=== PATIENT | male | born 1955 | race Caucasian/White ===

== ENCOUNTER → 2017-05-05 14:54 | Outpatient (CLI) | payer MEDICARE, SELFPAY ==
--- NOTE | 2017-05-05 14:57 | RAD_ITS ---
STUDY: X-RAY - PELVIS AND BILATERAL HIPS REASON FOR EXAM: Male, 62 years old. Pain TECHNIQUE: Radiological exam, hip, bilateral, with pelvis when performed; 2 views COMPARISON: None. FINDINGS: There is no fracture or dislocation in the pelvis or bilateral hips. There are mild degenerative changes noted in the hips. RAD/Hip 2-3 Views with Pelvis IMPRESSION: No fracture or dislocation. Mild degenerative change. Electronically Signed: Kofi Betancur, at 23:57 EST Tel , Service support ,
--- NOTE | 2017-05-05 15:10 | RAD_ITS ---
STUDY: X-RAY - LUMBAR SPINE REASON FOR EXAM: Male, 62 years old. Back pain TECHNIQUE: 4 view(s) of the lumbar spine were obtained. COMPARISON: None FINDINGS: There is no evidence of fracture or dislocation in the lumbar spine. The vertebral body heights are well-maintained. There are mild degenerative changes with disc space narrowing and facet hypertrophy. RAD/L/S Spine Min 4 Views IMPRESSION: No fracture or dislocation in the lumbar spine. Mild degenerative change. Electronically Signed: Kofi Betancur, at 23:53 EST Tel , Service support ,
== END ==
PROVIDERS: Family Provider Family Medicine; PCP Family Medicine; Visit Provider Family Medicine
DX: M54.16 Radiculopathy, lumbar region (principal)
CPT/HCPCS: 72110; 73502

== ENCOUNTER → 2017-08-15 09:58 | Outpatient (CLI) | payer MEDICARE, SELFPAY ==
[2017-08-15 10:55] LABS: Hemoglobin A1c 6.8 % (4.2-6.3)
[2017-08-15 11:02] LABS: ALB/GLOB Ratio 0.9 RATIO (0.9-2.4); AST(SGOT) 22 U/L (15-37); Alanine Aminotransfer ALT/SGPT 28 U/L (16-61); Albumin, Serum 3.8 g/dL (3.2-5.0); Alkaline Phosphatase 76 U/L (45-117); Anion Gap 9 (5-15); BUN 8 mg/dL (7-18); BUN/Creat Ratio 7.9 RATIO (10-20); Calcium,Total 8.9 mg/dL (8.5-10.1); Chloride 103 mmol/L (98-107); Cholesterol 124 mg/dL (200); Creatinine, Serum 1.01 mg/dL (0.70-1.30); EST Glomerular Filtration Rate 80 mL/min (>60); Est Glom Filt Rate - Afr Amer 96 mL/min (>60); Globulin 4.1 g/dL (2.2-4.2); Glucose 137 mg/dL (74-106); High Density Lipoprotein 38 mg/dL; Protein, Total 7.9 g/dL (6.4-8.2); Sodium Level 140 mmol/L (136-145); Triglycerides 148 mg/dL; Very Low Density Lipoprotein 30 mg/dL (5-40)
== END ==
PROVIDERS: Family Provider Family Medicine; PCP Family Medicine; Visit Provider Family Medicine
DX: E11.9 Type 2 diabetes mellitus without complications (principal); E78.2 Mixed hyperlipidemia
CPT/HCPCS: 36415; 80053; 80061; 83036

== ENCOUNTER → 2017-11-10 10:08 | Outpatient (CLI) | payer MEDICARE, SELFPAY ==
[2017-11-10 10:56] LABS: Hemoglobin A1c 6.7 % (4.2-6.3)
[2017-11-10 11:17] LABS: ALB/GLOB Ratio 1.1 RATIO (0.9-2.4); AST(SGOT) 20 U/L (15-37); Alanine Aminotransfer ALT/SGPT 29 U/L (16-61); Albumin, Serum 3.7 g/dL (3.2-5.0); Alkaline Phosphatase 64 U/L (45-117); Anion Gap 6 (5-15); BUN 11 mg/dL (7-18); BUN/Creat Ratio 10.4 RATIO (10-20); Calcium,Total 8.4 mg/dL (8.5-10.1); Chloride 104 mmol/L (98-107); Cholesterol 132 mg/dL (200); Creatinine, Serum 1.06 mg/dL (0.70-1.30); EST Glomerular Filtration Rate 75 mL/min (>60); Est Glom Filt Rate - Afr Amer 91 mL/min (>60); Globulin 3.5 g/dL (2.2-4.2); Glucose 131 mg/dL (74-106); High Density Lipoprotein 38 mg/dL; Potassium 3.9 mmol/L (3.5-5.1); Protein, Total 7.2 g/dL (6.4-8.2); Sodium Level 140 mmol/L (136-145); Triglycerides 207 mg/dL; Very Low Density Lipoprotein 41 mg/dL (5-40)
== END ==
PROVIDERS: Family Provider Family Medicine; PCP Family Medicine; Visit Provider Family Medicine
DX: E11.9 Type 2 diabetes mellitus without complications (principal); E78.2 Mixed hyperlipidemia
CPT/HCPCS: 36415; 80053; 80061; 83036

== ENCOUNTER 2018-01-13 17:19 | Observation (INO) | payer MEDICARE, SELFPAY ==
[2018-01-13] VITALS (7 sets, daily range): BP systolic 130–199; BP diastolic 70–101; PULSE 57–66; RESP 13–18; TEMP 36.6–37.3; O2SAT 96–98; BMI 36.1; BMI 35.6
--- NOTE | 2018-01-13 17:52 | RAD_ITS ---
STUDY: X-RAY CHEST REASON FOR EXAM: Male, 63 years old. Dizziness, bronchitis TECHNIQUE: Single AP portable view of the chest. COMPARISON: 06/10/2015 FINDINGS: There are interstitial fibrotic changes of the lungs. There is blunting of the right costophrenic angle suggesting pleural effusion. Follow-up recommended to assure resolution. Sternal cerclage wires and vascular clips are present from a prior sternotomy and coronary artery bypass graft procedure (CABG). Normal mediastinum and jean carlos. Normal visualized pulmonary arteries. Normal visualized aortic arch and descending thoracic aorta. Normal visualized thoracic spine. Normal visualized ribs, clavicles, and shoulders. There is no demonstrated abnormality of the visualized soft tissue structures of the upper abdomen. RAD/Chest 1 View (Portable) IMPRESSION: Chronic interstitial changes with right pleural effusion. Follow-up recommended to assure resolution Electronically Signed: Ben Mcrae MD at 18:11 EDT , Service support ,
--- NOTE | 2018-01-13 17:52 | EKG12_ITS ---
Test Reason : SYNCOPE Blood Pressure : / mmHG Vent. Rate : 063 BPM Atrial Rate : 063 BPM P-R Int : 174 ms QRS Dur : 090 ms QT Int : 466 ms P-R-T Axes : 030 -12 056 degrees QTc Int : 476 ms Sinus rhythm with occasional Premature ventricular complexes Nonspecific T wave abnormality Prolonged QT Abnormal ECG Confirmed by ELZA PORTILLO, RAGHU ([id number]), commissioning editor MICKIE GUPTA ([id number]) on 01/15/2018 3:07:09 PM Referred By: Confirmed By:RAGHU BERTRAND MD
[2018-01-13] MEDS: Aspirin 81 MG TAB.CHEW 324 MG PO (18:08)
[2018-01-13 18:21] LABS: Absolute Lymphocyte Count 1.66 X10^3/ul (0.83-4.51); Absolute Neutrophil Count 8.1 X10^3/uL (2.0-7.7); Basophil# 0.02 X10^3/uL; Basophil% 0.2 % (0-1); Eosinophil# 0.05 X10^3/uL; Eosinophils% 0.5 % (0-5); Hematocrit 46.2 % (40-54); Hemoglobin 15.9 g/dl (13.0-16.5); Lymphocyte # 1.66 X10^3/ul (4.0); Lymphocyte % 15.6 % (19-41); Mean Corp Hgb Conc 34.4 g/gl (32-36); Mean Corpuscular Hgb 29.4 pg (27.0-32.0); Mean Corpuscular Volume 85.4 fL (80-94); Mean Platelet Vol. 10.4 fl (6.2-12.0); Monocyte# 0.81 X10^3/uL; Monocyte% 7.6 % (0-10); Neutrophil # 8.08 X10^3/uL (2.7-7.7); Neutrophil % 75.9 % (47-70); POSITIVE COUNT NO; POSITIVE DIFFERENTIAL NO; POSITIVE MORPHOLOGY NO; Platelet Count 238 K/mm3 (150-450); RBC Distribution Width SD 40.3 fl (35.1-43.9); Red Blood Count 5.41 M/mm3 (4.6-6.2); White Blood Count 10.6 K/mm3 (4.4-11.0)
[2018-01-13 18:37] LABS: Anion Gap 8 (5-15); BUN 12 mg/dL (7-18); BUN/Creat Ratio 12.1 RATIO (10-20); Calcium,Total 8.8 mg/dL (8.5-10.1); Chloride 103 mmol/L (98-107); Creatinine, Serum 0.99 mg/dL (0.70-1.30); EST Glomerular Filtration Rate 81 mL/min (>60); Est Glom Filt Rate - Afr Amer 98 mL/min (>60); Estimated Creatinine Clearance 84.92 ml/min; Glucose 111 mg/dL (74-106); Potassium 4.3 mmol/L (3.5-5.1); Sodium Level 139 mmol/L (136-145)
--- NOTE | 2018-01-13 19:19 | ED.VISSUMM ---
- ER Visit Summary Date of Service: 01/13/18 Chief Complaint: Lightheaded History of Present Illness: The patient is a 63 M who presents with lightheadedness. He states it started yesterday evening. He has a known history of paroxysmal atrial fibrillation, dilated cardiomyopathy, CABG, aortic valve replacement and stents. He states he is felt lightheaded. He denies sensation of room spinning. He has no chest pain. He is on Coumadin. His INR yesterday was 3.3. He denies any full syncopal episodes. His heart rate at home he reports was 29. He states he has been eating and drinking well. No other recent illnesses Physical Examination: Vital signs reviewed. HEENT exam unremarkable. Heart is regular rate and rhythm without murmurs. Lungs are clear to auscultation. Abdomen is soft and nontender. Extremities reveal no edema. Peripheral pulses are equal. Skin exam normal. Neurologic exam normal. Test Results: EKG is normal sinus rhythm with [address] and T wave changes are noted. His chest x-ray reveals a small right pleural effusion with chronic changes. Laboratory studies are all normal. Emergency Department Course and Treatment: I reevaluated the patient he was still lightheaded. He feels unsteady on his feet. 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 I spoke with the hospitalist who will admit the patient. Treatment Plan: [] Disposition: Admit Impression: Near syncope, reported bradycardia This note was generated with [employer] dictation software. It may contain incorrect words, spelling, and punctuation that were not noted in review of the chart prior to signing ED Disposition - Plan for ED Patient: Chief Complaint: Syncope Referrals: Kofi Neumann MD [Primary Care Provider] -
--- NOTE | 2018-01-13 19:22 | ED.DCSUM_ITS ---
- ER Visit Summary Date of Service: 01/13/18 Chief Complaint: Lightheaded History of Present Illness: The patient is a 63 M who presents with lightheadedness. He states it started yesterday evening. He has a known history of paroxysmal atrial fibrillation, dilated cardiomyopathy, CABG, aortic valve replacement and stents. He states he is felt lightheaded. He denies sensation of room spinning. He has no chest pain. He is on Coumadin. His INR yesterday was 3.3. He denies any full syncopal episodes. His heart rate at home he reports was 29. He states he has been eating and drinking well. No other recent illnesses Physical Examination: Vital signs reviewed. HEENT exam unremarkable. Heart is regular rate and rhythm without murmurs. Lungs are clear to auscultation. Abdomen is soft and nontender. Extremities reveal no edema. Peripheral pulses are equal. Skin exam normal. Neurologic exam normal. Test Results: EKG is normal sinus rhythm with [address] and T wave changes are noted. His chest x-ray reveals a small right pleural effusion with chronic changes. Laboratory studies are all normal. Emergency Department Course and Treatment: I reevaluated the patient he was still lightheaded. He feels unsteady on his feet. Due to his cardiac history and the reported bradycardia, I would like to at least observe him overnight on the retail support manager. I spoke with the hospitalist who will admit the patient. Treatment Plan: [] Disposition: Admit Impression: Near syncope, reported bradycardia This note was generated with [employer] dictation software. It may contain incorrect words, spelling, and punctuation that were not noted in review of the chart prior to signing ED Disposition - Plan for ED Patient: Chief Complaint: Syncope Referrals: Kofi Neumann MD [Primary Care Provider] -
--- NOTE | 2018-01-13 19:56 | PCM.HP.STD ---
Problem List (1) Dizziness Status: Acute (2) Near syncope Status: Acute (3) Bradycardia Status: Acute History of Present Illness Date of Admission: 01/13/18 Chief Complaint: near syncope The patient is a 63 year old M who has a history of cardiac issues with atrial fibrillation and what sounds like a dilated cardiomyopathy. Patient off and on has issues in regards to her bradycardia but usually is not symptomatic but today patient was just dizzy. Worse when he stood her sat up. Was concerned and almost passed out at one point. Presented to the emergency room and was noted not to be bradycardic but with heart rate in the 60s. Patient said at home, use a pulse oximeter and measured his heart rate in the 20s-30s. Patient states this happens time to time but does not seek treatment for that. Has been told in the past that he may need a pacemaker but nothing definitive about that. 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 Kristian oviedo. [] Past Medical History Past Medical History (Chronic Problems): Chronic Problems History of back surgery (Chronic) Dilated cardiomyopathy (Chronic) CAD (coronary artery disease) (Chronic) Diabetes mellitus, type II (Chronic) Sleep apnea (Chronic) Sciatica (Chronic) intermittent since his back surgery BPH (benign prostatic hypertrophy) (Chronic) Paroxysmal atrial fibrillation (Chronic) history of anti-reflux surgery (Chronic) Obesity (BMI 30-39.9) (Chronic) HTN (hypertension) (Chronic) GERD (gastroesophageal reflux disease) (Chronic) Allergies cimetidine [From Tagamet] Allergy (Verified 01/13/18 17:21) irregular heart rate cimetidine HCl [From Tagamet] Allergy (Verified 01/13/18 17:21) irregular heart rate lansoprazole [From Prevacid] Allergy (Verified 01/13/18 17:21) irregular heart rate omeprazole [From Prilosec] Allergy (Verified 01/13/18 17:21) irregular heart rate omeprazole magnesium [From Prilosec] Allergy (Verified 01/13/18 17:21) irregular heart rate Home Medications: Ambulatory Orders Medication Instructions Recorded Glimepiride [Amaryl] 1 mg PO DAILY 02/04/14 Simvastatin [Zocor] 40 mg PO QHS 02/04/14 Magnesium 250 mg PO LUNCH 03/30/14 Aspirin [Aspirin, Baby] 81 mg PO DAILY@0800 #30 tab.chew 04/01/14 Benazepril HCl 40 mg PO DAILY #30 tablet 04/01/14 Diltiazem CD [Cardizem CD] 120 mg PO DAILY #30 capsule 04/01/14 Fish Oil/Dha/Epa [Fish Oil 1,200 1 each PO QHS 01/13/18 mg Fish Oil] Mag Hydrox/Al Hydrox/Simeth 30 ml PO QHS PRN 01/13/18 [Mylanta II] Metoprolol Tartrate [Lopressor 50 mg PO BID 01/13/18 (beta eleonora)] Nitroglycerin 0.4 mg SL DAILY PRN 01/13/18 Saw [place] 160 mg PO QHS 01/13/18 Warfarin [Coumadin] 5 mg PO QHS 01/13/18 Surgical History: angioplasty - with 3 stents in the past, tonsillectomy, - - anti-reflux surgery, low back surgery for disc disease Psychiatric History: No pertinent psych hx Smoking Status: Never smoker - *Family History Maternal History Items: - - mother at 51 of CAD....she had diabetes Paternal History Items: Heart Disease, - - father of a brain tumor and had heart disease Sibling History Items: Diabetes, - - he has a brother who had cancer of the arm(sarcoma)? has a sister with sarcoidosis Review of Systems Constitutional: Reports: Weakness. Denies: Anorexia, Chills, Fever, Night Sweats, Malaise Eyes: Denies: Blurred vision, Double vision HEENT: Denies: Head Aches, Sinus Congestion, Sinus Drainage Cardiovascular: Denies: Chest Pain, Palpitations Respiratory: Denies: Cough, Shortness of breath at rest, Sputum production Gastrointestinal: Denies: Abdominal Pain, Nausea, Vomiting Genitourinary: Denies: Dysuria Musculoskeletal: Denies: Joint Pain, Joint Tenderness Skin: Denies: Dryness, Jaundice Neurological: Denies: Numbness, Tingling, Focal weakness Psychiatric: Denies: Anxiety, Depression Endocrine: Denies: Change in Body Habitus Hematologic/ Lymphatic: Denies: Easy Bruising, Easy Bleeding, Hx of blood clot Comment: All review of systems are negative except as mentioned in the history of present illness and the other review of systems. VTE Information - Inpt Only VTE Present on Admission: No VTE Pharm Prophylaxis ordered?: Yes Patient Problems: Active and Suspected Problems Dizziness (Acute) Near syncope (Acute) Bradycardia (Acute) - Physical Exam General: Alert, Cooperative, No apparent distress HEENT: Atraumatic, PERRLA, EOMI, Normocephalic Oral: Moist Mucosa, No Gingival or Mucosal Lesions/ Ulcerations Neck: No Nodes, Thyroid Normal Size and Texture Lungs: Clear to auscultation, Normal air movement, No rhonchi, No wheeze Cardiovascular: Regular rate, Regular Rhythm, Normal S1, Normal S2, No murmurs Abdomen: Bowel Sounds Present, Soft, Non Tender, Non-Distended, No Hepato-splenomegaly Extremities: No edema, No Calf Tenderness Skin: No rashes, No breakdown Musculoskeletal: No Tenderness to Palpation of Joints or Extremities, No Muscle Wasting Neurological: Cranial nerves II-XII grossly intact, Deep Tendon Reflexes 2+/4 and Symmetrical, Motor Exam 5/5 strength throughout Psych/Mental Status: Normal Affect, Appropriate Vital Signs Temp Pulse Resp BP Pulse Ox 37.3 C 60 13 159/83 H 98 01/13/18 17:21 01/13/18 19:33 01/13/18 19:33 01/13/18 19:33 01/13/18 19:33 Oxygen Delivery Method Room Air Weight: 121 kg Body Mass Index (BMI) 36.1 Laboratory Tests Past 24 Hrs 01/13/18 01/13/18 18:10 18:10 WBC 10.6 RBC 5.41 Hgb 15.9 Hct 46.2 MCV 85.4 MCH 29.4 MCHC 34.4 RDW 13.0 RDW Differential 40.3 Plt Count 238 MPV 10.4 Immature Gran % (Auto) 0.200 Neut % (Auto) 75.9 H Lymph % (Auto) 15.6 L [place] % (Auto) 7.6 Eos % (Auto) 0.5 Baso % (Auto) 0.2 Absolute Neuts (auto) 8.1 H Absolute Lymphs (auto) 1.66 Total Counted Not Reportable Sodium 139 Potassium 4.3 Chloride 103 Carbon Dioxide 28.0 Anion Gap 8 BUN 12 Creatinine 0.99 Estim Creat Clear Calc 84.92 Est GFR (MDRD) Af Amer 98 Est GFR (MDRD) Non-Af 81 BUN/Creatinine Ratio 12.1 Glucose 111 H Calcium 8.8 Troponin I < 0.015 Clinical Impression(s) from Imaging Studies Chest X-Ray 01/13/18 17:52 IMPRESSION: Chronic interstitial changes with right pleural effusion. Follow-up recommended to assure resolution Electronically Signed: Ben Mcrae MD at 18:11 EDT , Service support , Assessment/Plan All Active Problems Dizziness (Acute) Near syncope (Acute) Bradycardia (Acute) Atrial fibrillation with rapid ventricular response (Acute) Hx-TIA (transient ischemic attack) (Resolved) 1. Dizziness/near syncope Unclear etiology at this time Workup for inner ear vertigo has been unremarkable thus far Possibilities could be orthostatic hypotension still could be BPPV Patient not bradycardic now but still having dizziness so I do not feel the bradycardia is treatable cause at this time Check orthostatic vital signs Check echocardiogram Patient has said that he has a dilated ventricle and atrium on his most recent echocardiogram from March of last year. I do not have those results available at this time Will request records from Dr. oviedo's office 2. Bradycardia Patient states that he is on sotalol metoprolol and diltiazem States that he is on sotalol on his home list but given the bradycardia and his symptoms I am going to hold his metoprolol for now. Monitor for now 3. Paroxysmal atrial fibrillation As above, hold metoprolol continue with diltiazem. We will need to verify if he is indeed on sotalol Continue with Coumadin Check INR Code Visit OBSV E&M: 85884 Initial observation care L3
--- NOTE | 2018-01-13 19:59 | ECHOCS_ITS ---
Reason For Study: Near syncope Procedure This was a 2D Doppler, Color Flow transthoracic echocardiogram. Exam performed portable in patient room. Left Ventricle Normal LV size. Left ventricular systolic function is normal. The estimated ejection fraction is 65 %. Stage 1 diastolic dysfunction. No regional wall motion abnormalities noted. Right Ventricle Normal RV size. Normal systolic function. Atria Normal left atrium. Normal right atrium. Mitral Valve Normal mitral valve. Tricuspid Valve Normal tricuspid valve. Mild tricuspid valve insufficiency. Pulmonary artery systolic pressure is 32 mmHg. Aortic Valve The aortic valve is not well visualized. Peak aortic valve gradient 35 mmHg. Mean aortic valve gradient 20 mmHg. Mild aortic stenosis. Calculated aortic valve area (continuity equation) is 1.6 cm2. Pulmonic Valve Normal pulmonic valve. Great Vessels Normal aortic root. The pulmonary artery is normal size. Normal inferior vena cava. Pericardium/Pleural No pericardial effusion. Medication [id number] given slow IV push to enhance endocardial definition. MMode/2D Measurements & Calculations LVIDd: 5.4 cm IVSd: 1.1 cm LVOT diam: 2.4 cm LVIDs: 3.5 cm LVPWd: 1.1 cm LVOT area: 4.6 cm2 RVDd: 4.9 cm FS: 34.5 % Ao root diam: 3.5 cm LAV(MOD-bp): 46.6 ml EDV(MOD-sp4): 165.4 ml LA dimension: 4.3 cm LAV(MOD-bp) Indexed: 19.5 ml/m2 ESV(MOD-sp4): 41.2 ml LAV(MOD-sp2): 40.1 ml EF(MOD-sp4): 75.1 % LAV(MOD-sp4): 52.4 ml EDV(MOD-sp2): 125.9 ml SV(MOD-sp4): 124.2 ml SV(MOD-sp2): 82.8 ml EF(MOD-sp2): 65.7 % LA A4 area: 20.3 cm2 RA A4 area: 13.8 cm2 Time Measurements MV dec time: 0.31 sec Doppler Measurements & Calculations MV E max faisal: 65.7 cm/sec Lat Peak E' Faisal: 11.4 cm/sec Med Peak E' Faisal: 6.8 cm/sec MV A max faisal: 73.7 cm/sec E/E' lat: 5.8 E/E' med: 9.6 MV E/A: 0.89 Ao V2 max: 297.7 cm/sec LV V1 max: 102.5 cm/sec SV(LVOT): 100.1 ml Ao max P.6 mmHg LV V1 max P.2 mmHg Ao V2 mean: 208.1 cm/sec LV V1 mean P.3 mmHg Ao mean P.7 mmHg LV V1 mean: 71.4 cm/sec Ao V2 VTI: 58.5 cm LV V1 VTI: 21.9 cm AZUCENA(I,D): 1.7 cm2 AZUCENA(V,D): 1.6 cm2 PA V2 max: 112.5 cm/sec PI end-d faisal: 88.8 cm/sec TR max faisal: 265.1 cm/sec TR max P.1 mmHg Interpretation Summary Normal LV size. Left ventricular systolic function is normal. The estimated ejection fraction is 65 %. Stage 1 diastolic dysfunction. Mean aortic valve gradient 20 mmHg. Mild aortic stenosis. Calculated aortic valve area (continuity equation) is 1.6 cm2. Contrast injection was performed. Ordering Physician: Cliff Enamorado Referring Physician: Kofi Neumann Performed By: Ciera Felder RDCS
--- NOTE | 2018-01-13 20:02 | HP.PCM_ITS ---
Problem List (1) Dizziness Status: Acute (2) Near syncope Status: Acute (3) Bradycardia Status: Acute History of Present Illness Date of Admission: 01/13/18 Chief Complaint: near syncope The patient is a 63 year old M who has a history of cardiac issues with atrial fibrillation and what sounds like a dilated cardiomyopathy. Patient off and on has issues in regards to her bradycardia but usually is not symptomatic but today patient was just dizzy. Worse when he stood her sat up. Was concerned and almost passed out at one point. Presented to the emergency room and was noted not to be bradycardic but with heart rate in the 60s. Patient said at home, use a pulse oximeter and measured his heart rate in the 20s-30s. Patient states this happens time to time but does not seek treatment for that. Has been told in the past that he may need a pacemaker but nothing definitive about that. 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 Kristian oviedo. [] Past Medical History Past Medical History (Chronic Problems): Chronic Problems History of back surgery (Chronic) Dilated cardiomyopathy (Chronic) CAD (coronary artery disease) (Chronic) Diabetes mellitus, type II (Chronic) Sleep apnea (Chronic) Sciatica (Chronic) intermittent since his back surgery BPH (benign prostatic hypertrophy) (Chronic) Paroxysmal atrial fibrillation (Chronic) history of anti-reflux surgery (Chronic) Obesity (BMI 30-39.9) (Chronic) HTN (hypertension) (Chronic) GERD (gastroesophageal reflux disease) (Chronic) Allergies cimetidine [From Tagamet] Allergy (Verified 01/13/18 17:21) irregular heart rate cimetidine HCl [From Tagamet] Allergy (Verified 01/13/18 17:21) irregular heart rate lansoprazole [From Prevacid] Allergy (Verified 01/13/18 17:21) irregular heart rate omeprazole [From Prilosec] Allergy (Verified 01/13/18 17:21) irregular heart rate omeprazole magnesium [From Prilosec] Allergy (Verified 01/13/18 17:21) irregular heart rate Home Medications: Ambulatory Orders Medication Instructions Recorded Glimepiride [Amaryl] 1 mg PO DAILY 02/04/14 Simvastatin [Zocor] 40 mg PO QHS 02/04/14 Magnesium 250 mg PO LUNCH 03/30/14 Aspirin [Aspirin, Baby] 81 mg PO DAILY@0800 #30 tab.chew 04/01/14 Benazepril HCl 40 mg PO DAILY #30 tablet 04/01/14 Diltiazem CD [Cardizem CD] 120 mg PO DAILY #30 capsule 04/01/14 Fish Oil/Dha/Epa [Fish Oil 1,200 1 each PO QHS 01/13/18 mg Fish Oil] Mag Hydrox/Al Hydrox/Simeth 30 ml PO QHS PRN 01/13/18 [Mylanta II] Metoprolol Tartrate [Lopressor 50 mg PO BID 01/13/18 (beta eleonora)] Nitroglycerin 0.4 mg SL DAILY PRN 01/13/18 [address] [place] 160 mg PO QHS 01/13/18 Warfarin [Coumadin] 5 mg PO QHS 01/13/18 Surgical History: angioplasty - with 3 stents in the past, tonsillectomy, - - anti-reflux surgery, low back surgery for disc disease Psychiatric History: No pertinent psych hx Smoking Status: Never smoker - *Family History Maternal History Items: - - mother at 51 of CAD....she had diabetes Paternal History Items: Heart Disease, - - father of a brain tumor and had heart disease Sibling History Items: Diabetes, - - he has a brother who had cancer of the arm(sarcoma)? has a sister with sarcoidosis Review of Systems Constitutional: Reports: Weakness. Denies: Anorexia, Chills, Fever, Night Sweats, Malaise Eyes: Denies: Blurred vision, Double vision HEENT: Denies: Head Aches, Sinus Congestion, Sinus Drainage Cardiovascular: Denies: Chest Pain, Palpitations Respiratory: Denies: Cough, Shortness of breath at rest, Sputum production Gastrointestinal: Denies: Abdominal Pain, Nausea, Vomiting Genitourinary: Denies: Dysuria Musculoskeletal: Denies: Joint Pain, Joint Tenderness Skin: Denies: Dryness, Jaundice Neurological: Denies: Numbness, Tingling, Focal weakness Psychiatric: Denies: Anxiety, Depression Endocrine: Denies: Change in Body Habitus Hematologic/ Lymphatic: Denies: Easy Bruising, Easy Bleeding, Hx of blood clot Comment: All review of systems are negative except as mentioned in the history of present illness and the other review of systems. VTE Information - Inpt Only VTE Present on Admission: No VTE Pharm Prophylaxis ordered?: Yes Patient Problems: Active and Suspected Problems Dizziness (Acute) Near syncope (Acute) Bradycardia (Acute) - Physical Exam General: Alert, Cooperative, No apparent distress HEENT: Atraumatic, PERRLA, EOMI, Normocephalic Oral: Moist Mucosa, No Gingival or Mucosal Lesions/ Ulcerations Neck: No Nodes, Thyroid Normal Size and Texture Lungs: Clear to auscultation, Normal air movement, No rhonchi, No wheeze Cardiovascular: Regular rate, Regular Rhythm, Normal S1, Normal S2, No murmurs Abdomen: Bowel Sounds Present, Soft, Non Tender, Non-Distended, No Hepato- splenomegaly Extremities: No edema, No Calf Tenderness Skin: No rashes, No breakdown Musculoskeletal: No Tenderness to Palpation of Joints or Extremities, No Muscle Wasting Neurological: Cranial nerves II-XII grossly intact, Deep Tendon Reflexes 2+/4 and Symmetrical, Motor Exam 5/5 strength throughout Psych/Mental Status: Normal Affect, Appropriate Vital Signs Temp Pulse Resp BP Pulse Ox 37.3 C 60 13 159/83 H 98 01/13/18 17:21 01/13/18 19:33 01/13/18 19:33 01/13/18 19:33 01/13/18 19:33 Oxygen Delivery Method Room Air Weight: 121 kg Body Mass Index (BMI) 36.1 Laboratory Tests Past 24 Hrs 01/13/18 01/13/18 18:10 18:10 WBC 10.6 RBC 5.41 Hgb 15.9 Hct 46.2 MCV 85.4 MCH 29.4 MCHC 34.4 RDW 13.0 RDW Differential 40.3 Plt Count 238 MPV 10.4 Immature Gran % (Auto) 0.200 Neut % (Auto) 75.9 H Lymph % (Auto) 15.6 L [place] % (Auto) 7.6 Eos % (Auto) 0.5 Baso % (Auto) 0.2 Absolute Neuts (auto) 8.1 H Absolute Lymphs (auto) 1.66 Total Counted Not Reportable Sodium 139 Potassium 4.3 Chloride 103 Carbon Dioxide 28.0 Anion Gap 8 BUN 12 Creatinine 0.99 Estim Creat Clear Calc 84.92 Est GFR (MDRD) Af Amer 98 Est GFR (MDRD) Non-Af 81 BUN/Creatinine Ratio 12.1 Glucose 111 H Calcium 8.8 Troponin I < 0.015 Clinical Impression(s) from Imaging Studies Chest X-Ray 01/13/18 17:52 IMPRESSION: Chronic interstitial changes with right pleural effusion. Follow-up recommended to assure resolution Electronically Signed: Ben Mcrae MD at 18:11 EDT , Service support , Assessment/Plan All Active Problems Dizziness (Acute) Near syncope (Acute) Bradycardia (Acute) Atrial fibrillation with rapid ventricular response (Acute) Hx-TIA (transient ischemic attack) (Resolved) 1. Dizziness/near syncope * Unclear etiology at this time * Workup for inner ear vertigo has been unremarkable thus far * Possibilities could be orthostatic hypotension still could be BPPV * Patient not bradycardic now but still having dizziness so I do not feel the bradycardia is treatable cause at this time * Check orthostatic vital signs * Check echocardiogram * Patient has said that he has a dilated ventricle and atrium on his most recent echocardiogram from March of last year. I do not have those results available at this time * Will request records from Dr. oviedo's office 2. Bradycardia * Patient states that he is on sotalol metoprolol and diltiazem * States that he is on sotalol on his home list but given the bradycardia and his symptoms I am going to hold his metoprolol for now. * Monitor for now 3. Paroxysmal atrial fibrillation * As above, hold metoprolol continue with diltiazem. We will need to verify if he is indeed on sotalol * Continue with Coumadin * Check INR Code Visit OBSV E&M: 77100 Initial observation care L3
[2018-01-13 20:49] LABS: International Normalized Ratio 2.1; Prothrombin Time (Protime)PT. 23.3 SECONDS (11.7-14.9)
[2018-01-13] MEDS: Atorvastatin Calcium 20 MG Tablet PO (22:51)
[2018-01-13 23:00] LABS: Bedside Glucose 113 mg/dL (70-110)
[2018-01-14] VITALS (11 sets, daily range): BP systolic 126–154; BP diastolic 72–89; PULSE 56–80; RESP 16–18; TEMP 36.6–36.8; O2SAT 95–97
[2018-01-14 06:23] LABS: International Normalized Ratio 1.8; Prothrombin Time (Protime)PT. 20.5 SECONDS (11.7-14.9)
[2018-01-14 06:26] LABS: BUN 12 mg/dL (7-18); BUN/Creat Ratio 12.1 RATIO (10-20); Calcium,Total 8.8 mg/dL (8.5-10.1); Creatinine, Serum 0.99 mg/dL (0.70-1.30); EST Glomerular Filtration Rate 81 mL/min (>60); Est Glom Filt Rate - Afr Amer 98 mL/min (>60); Estimated Creatinine Clearance 84.92 ml/min; Glucose 149 mg/dL (74-106); Magnesium 2.2 mg/dL (1.6-2.6); Sodium Level 140 mmol/L (136-145)
[2018-01-14 06:27] LABS: Anion Gap 10 (5-15); Chloride 104 mmol/L (98-107)
[2018-01-14] MEDS: Aspirin 81 MG TAB.CHEW PO (08:35)
[2018-01-14] MEDS: Glimepiride 1 MG Tablet PO (08:35)
[2018-01-14] MEDS: Lisinopril 40 MG Tablet PO (08:35)
[2018-01-14] MEDS: dilTIAZem CD 120 MG Capsule PO (08:35)
[2018-01-14] MEDS: Magnesium Oxide 400 MG Tablet 200 MG PO (12:04)
[2018-01-14] MEDS: Sotalol Hydrochloride 80 MG Tablet 120 MG PO ×2 (12:05→22:43)
--- NOTE | 2018-01-14 12:06 | PCM.PROGNOTE ---
<Shane Diggs - Last Filed: 01/14/18 12:06> Patient Problems: Active and Suspected Problems Dizziness (Acute) Near syncope (Acute) Bradycardia (Acute) Subjective: Pt very anxious about not receiving beta blockers. He states last time metoprolol was attempted to be stopped to switch to coreg he developed severe chest pain. He has had no CP so far. No SOB. No LH or dizziness today at rest or while up to the bathroom. No further palpitations - was having these at home. His pulse was in the 20s at home, has been ok overnight on tele with some PVCs. - Physical Exam General: Alert, Oriented x3, Cooperative HEENT: Atraumatic, PERRLA, EOMI, Normocephalic Neck: Supple, No JVD, Negative Carotid Bruits Lungs: Clear to auscultation, Normal air movement Cardiovascular: Regular rate, No murmurs Abdomen: Bowel Sounds Present, Soft, Non Tender Extremities: No edema, Capillary Refill Less than 3 Seconds Skin: No rashes, No breakdown Musculoskeletal: No Tenderness to Palpation of Joints or Extremities Neurological: Cranial nerves II-XII grossly intact Psych/Mental Status: Anxious, Alert and oriented to time, place, person, mood and affect Vital Signs Temp Pulse Resp BP Pulse Ox 97.9 F 60 16 154/83 H 97 01/14/18 10:55 01/14/18 10:58 01/14/18 10:55 01/14/18 10:55 01/14/18 10:55 Oxygen Delivery Method Room Air Weight: 262 lb 5.601 oz Body Mass Index (BMI) 35.6 Orthostatic Vital Signs Start: 01/14/18 05:19 Freq: q24h Status: Active Protocol: Activity Type Activity Date Activity User E-Sign Co-Sign Detail Recorded Client Recorded Date Recorded By Document 01/14/18 04:55 Miesha [id number] 01/14/18 05:22 KARL 01/14/18 04:55 Orthostatic Vitals Standing -Blood Pressure (90/60-120/80) 126/89 H -Extremity Use Left Arm -Pulse Rate (60-100) 70 Sitting -Blood Pressure (90/60-120/80) 153/87 H -Extremity Use Left Arm -Pulse Rate (60-100) 67 Lying -Blood Pressure (90/60-120/80) 140/84 H -Extremity Use Left Arm -Pulse Rate (60-100) 65 Intake and Output for Last 24 Hours 01/12/18 01/13/18 01/14/18 23:59 23:59 23:59 Intake Total 600 / 600 Output Total 525 / 525 Balance 75 / 75 Laboratory Tests Past 24 Hrs 01/13/18 01/13/18 01/13/18 18:10 18:10 20:15 WBC 10.6 RBC 5.41 Hgb 15.9 Hct 46.2 MCV 85.4 MCH 29.4 MCHC 34.4 RDW 13.0 RDW Differential 40.3 Plt Count 238 MPV 10.4 Immature Gran % (Auto) 0.200 Neut % (Auto) 75.9 H Lymph % (Auto) 15.6 L [place] % (Auto) 7.6 Eos % (Auto) 0.5 Baso % (Auto) 0.2 Absolute Neuts (auto) 8.1 H Absolute Lymphs (auto) 1.66 Total Counted Not Reportable PT 23.3 H INR 2.1 Sodium 139 Potassium 4.3 Chloride 103 Carbon Dioxide 28.0 Anion Gap 8 BUN 12 Creatinine 0.99 Estim Creat Clear Calc 84.92 Est GFR (MDRD) Af Amer 98 Est GFR (MDRD) Non-Af 81 BUN/Creatinine Ratio 12.1 Glucose 111 H Calcium 8.8 Magnesium Troponin I < 0.015 01/13/18 01/13/18 01/14/18 20:15 22:58 05:04 WBC RBC Hgb Hct MCV MCH MCHC RDW RDW Differential Plt Count MPV Immature Gran % (Auto) Neut % (Auto) Lymph % (Auto) [place] % (Auto) Eos % (Auto) Baso % (Auto) Absolute Neuts (auto) Absolute Lymphs (auto) Total Counted PT 20.5 H INR 1.8 Sodium Potassium Chloride Carbon Dioxide Anion Gap BUN Creatinine Estim Creat Clear Calc Est GFR (MDRD) Af Amer Est GFR (MDRD) Non-Af BUN/Creatinine Ratio Glucose Calcium Magnesium Troponin I < 0.015 < 0.015 01/14/18 05:04 WBC RBC Hgb Hct MCV MCH MCHC RDW RDW Differential Plt Count MPV Immature Gran % (Auto) Neut % (Auto) Lymph % (Auto) [place] % (Auto) Eos % (Auto) Baso % (Auto) Absolute Neuts (auto) Absolute Lymphs (auto) Total Counted PT INR Sodium 140 Potassium 4.0 Chloride 104 Carbon Dioxide 26.0 Anion Gap 10 BUN 12 Creatinine 0.99 Estim Creat Clear Calc 84.92 Est GFR (MDRD) Af Amer 98 Est GFR (MDRD) Non-Af 81 BUN/Creatinine Ratio 12.1 Glucose 149 H Calcium 8.8 Magnesium 2.2 Troponin I POC Glucose 01/13/18 22:49 POC Glucose 113 H Medical Necessity - Tobacco Use Smoking Status: Former smoker Assessment/Plan All Active Problems Dizziness (Acute) Near syncope (Acute) Bradycardia (Acute) Atrial fibrillation with rapid ventricular response (Acute) Hx-TIA (transient ischemic attack) (Resolved) 1. Near syncope 2/2 bradycardia - improved with sotalol and metoprolol held. Restart toprol. Echo in AM. Maintain on tele. No events so far. Trop neg x 3. Mag normal. Has outside flat knitter helper who has discussed pacer option with him in the past. -Positive orthostatic vitals. Recheck after starting sotalol. Resting BP is elevated so defer additional agents like midodrine. 2. Hx Paroxysmal Afib - rate controlled, SR. Warfarin subtherapeutic. 3. CAD - prior cabg, stents 4. Hx AV stenosis - s/p bioprosthetic valve 5. HTN - running high, likely 2/2 help meds, adjust if remains elevated after restarting sotalol 6. DMt2 with obesity - amaryl, add SSI. 7. MAI - compliant with CPAP DVT ppx: warfarin DC planning: PTOT This patient was seen by Shane Diggs PA-C under the supervision of Doctor Pedro. <Tye Vasquez - Last Filed: 01/14/18 14:55> Subjective: Patient was seen and examined. I saw the patient during previous admission in 2013 for A. fib with RVR. At that time he had echo, CINTHYA and cardiac cath. He had short run of NSVT at that time. He used to follow Dr. Rascon and currently follows Dr Kristian Cordova in [place]. Patient on heavy dose of rate control medications including sotalol 120 mg a.m. and 160 mg at bedtime, metoprolol 50 mg twice daily and Cardizem CD 120 mg daily. Patient said he came yesterday when he is feeling dizzy, lightheaded and her heart rate was in 20s-30s and was almost passed out but denies fall or syncope. 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 - Physical Exam General: Alert, Oriented x3, Cooperative HEENT: Atraumatic, PERRLA, EOMI, Normocephalic Neck: Supple, No JVD, Negative Carotid Bruits Lungs: Clear to auscultation, Normal air movement Cardiovascular: Normal S1, Normal S2, Bradycardic, Murmur - Systolic murmur over left lower sternal border and aortic region, - - Status post AVR Abdomen: Bowel Sounds Present, Soft, Non Tender Extremities: No edema, Capillary Refill Less than 3 Seconds Skin: No rashes, No breakdown Musculoskeletal: No Tenderness to Palpation of Joints or Extremities Neurological: Cranial nerves II-XII grossly intact Psych/Mental Status: Normal Affect, Appropriate Vital Signs Temp Pulse Resp BP Pulse Ox 97.9 F 60 16 154/83 H 97 01/14/18 10:55 01/14/18 10:58 01/14/18 10:55 01/14/18 10:55 01/14/18 10:55 Oxygen Delivery Method Room Air Weight: 262 lb 5.601 oz Body Mass Index (BMI) 35.6 Orthostatic Vital Signs Start: 01/14/18 05:19 Freq: q24h Status: Active Protocol: Activity Type Activity Date Activity User E-Sign Co-Sign Detail Recorded Client Recorded Date Recorded By Document 01/14/18 04:55 [facility] [id number] 01/14/18 05:22 KARL 01/14/18 04:55 Orthostatic Vitals Standing -Blood Pressure (90/60-120/80) 126/89 H -Extremity Use Left Arm -Pulse Rate (60-100) 70 Sitting -Blood Pressure (90/60-120/80) 153/87 H -Extremity Use Left Arm -Pulse Rate (60-100) 67 Lying -Blood Pressure (90/60-120/80) 140/84 H -Extremity Use Left Arm -Pulse Rate (60-100) 65 Intake and Output for Last 24 Hours 01/12/18 01/13/18 01/14/18 23:59 23:59 23:59 Intake Total 1220 / 1220 Output Total 525 / 525 Balance 695 / 695 Laboratory Tests Past 24 Hrs 01/13/18 01/13/18 01/13/18 18:10 18:10 20:15 WBC 10.6 RBC 5.41 Hgb 15.9 Hct 46.2 MCV 85.4 MCH 29.4 MCHC 34.4 RDW 13.0 RDW Differential 40.3 Plt Count 238 MPV 10.4 Immature Gran % (Auto) 0.200 Neut % (Auto) 75.9 H Lymph % (Auto) 15.6 L [place] % (Auto) 7.6 Eos % (Auto) 0.5 Baso % (Auto) 0.2 Absolute Neuts (auto) 8.1 H Absolute Lymphs (auto) 1.66 Total Counted Not Reportable PT 23.3 H INR 2.1 Sodium 139 Potassium 4.3 Chloride 103 Carbon Dioxide 28.0 Anion Gap 8 BUN 12 Creatinine 0.99 Estim Creat Clear Calc 84.92 Est GFR (MDRD) Af Amer 98 Est GFR (MDRD) Non-Af 81 BUN/Creatinine Ratio 12.1 Glucose 111 H Calcium 8.8 Magnesium Troponin I < 0.015 01/13/18 01/13/18 01/14/18 20:15 22:58 05:04 WBC RBC Hgb Hct MCV MCH MCHC RDW RDW Differential Plt Count MPV Immature Gran % (Auto) Neut % (Auto) Lymph % (Auto) [place] % (Auto) Eos % (Auto) Baso % (Auto) Absolute Neuts (auto) Absolute Lymphs (auto) Total Counted PT 20.5 H INR 1.8 Sodium Potassium Chloride Carbon Dioxide Anion Gap BUN Creatinine Estim Creat Clear Calc Est GFR (MDRD) Af Amer Est GFR (MDRD) Non-Af BUN/Creatinine Ratio Glucose Calcium Magnesium Troponin I < 0.015 < 0.015 01/14/18 05:04 WBC RBC Hgb Hct MCV MCH MCHC RDW RDW Differential Plt Count MPV Immature Gran % (Auto) Neut % (Auto) Lymph % (Auto) [place] % (Auto) Eos % (Auto) Baso % (Auto) Absolute Neuts (auto) Absolute Lymphs (auto) Total Counted PT INR Sodium 140 Potassium 4.0 Chloride 104 Carbon Dioxide 26.0 Anion Gap 10 BUN 12 Creatinine 0.99 Estim Creat Clear Calc 84.92 Est GFR (MDRD) Af Amer 98 Est GFR (MDRD) Non-Af 81 BUN/Creatinine Ratio 12.1 Glucose 149 H Calcium 8.8 Magnesium 2.2 Troponin I POC Glucose 01/14/18 01/13/18 12:23 22:49 POC Glucose 113 H 113 H Assessment/Plan This patient was seen in conjunction with Shane ROBLERO. I have independently interviewed and examined the patient and reviewed pertinent history, examination findings, laboratory and plan of management. I have reviewed the note and agree with the documented findings with the few additional points. In brief, patient is admitted for near syncope consistent with severe bradycardia. Patient very apprehensive of going off rate control medications including sotalol and metoprolol as he thinks he will be in A. fib with RVR as it happened in the past. Patient also has coronary artery disease status post 3 stents open heart surgery with bioprosthetic aortic valve replaced. During previous admission in January 2014, patient had echo is reported as EF 60% with hypokinetic anterior wall, moderate aortic insufficiency. Subsequently patient was taken to cardiac Meat Products Demonstrator and found 60-70% stenosis of posterior lateral branch of RCA and 70% stenosis of small obtuse marginal which was not amenable to angioplasty. Patient also had CINTHYA at that time showed moderate AR, no thrombus in left atrial appendage and bubble contrast study was negative of interatrial shunt. After that, patient had aortic valve replacement and double vessel bypass surgery in May 2015 at [facility]. Patient on heavy dose of rate control medications including sotalol 120 mg a.m. and 160 mg at bedtime, metoprolol 50 mg twice daily and Cardizem CD 120 mg daily. 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 INR is 1.8. Electrolytes within normal limit. Serial troponin enzymes negative. Continue aspirin. Discussed with flat knitter helper Dr. Damian. He suggested sotalol 120 mg p.o. twice daily and discontinue metoprolol and Cardizem. He agreed to see the patient. 2D echo ordered. I have discussed my assessment with Shane ROBLERO and orders have been reviewed. Code Visit Inpatient E&M: 57430 Subs Hosp L3
--- NOTE | 2018-01-14 12:12 | PN_ITS ---
<Shane Diggs - Last Filed: 01/14/18 12:06> Patient Problems: Active and Suspected Problems Dizziness (Acute) Near syncope (Acute) Bradycardia (Acute) Subjective: Pt very anxious about not receiving beta blockers. He states last time metoprolol was attempted to be stopped to switch to coreg he developed severe chest pain. He has had no CP so far. No SOB. No LH or dizziness today at rest or while up to the bathroom. No further palpitations - was having these at home. His pulse was in the 20s at home, has been ok overnight on tele with some PVCs. - Physical Exam General: Alert, Oriented x3, Cooperative HEENT: Atraumatic, PERRLA, EOMI, Normocephalic Neck: Supple, No JVD, Negative Carotid Bruits Lungs: Clear to auscultation, Normal air movement Cardiovascular: Regular rate, No murmurs Abdomen: Bowel Sounds Present, Soft, Non Tender Extremities: No edema, Capillary Refill Less than 3 Seconds Skin: No rashes, No breakdown Musculoskeletal: No Tenderness to Palpation of Joints or Extremities Neurological: Cranial nerves II-XII grossly intact Psych/Mental Status: Anxious, Alert and oriented to time, place, person, mood and affect Vital Signs Temp Pulse Resp BP Pulse Ox 97.9 F 60 16 154/83 H 97 01/14/18 10:55 01/14/18 10:58 01/14/18 10:55 01/14/18 10:55 01/14/18 10:55 Oxygen Delivery Method Room Air Weight: 262 lb 5.601 oz Body Mass Index (BMI) 35.6 Orthostatic Vital Signs Start: 01/14/18 05:19 Freq: q24h Status: Active Protocol: Activity Type Activity Date Activity User E-Sign Co-Sign Detail Recorded Client Recorded Date Recorded By Document 01/14/18 04:55 Miesha [id number] 01/14/18 05:22 KARL 01/14/18 04:55 Orthostatic Vitals Standing -Blood Pressure (90/60-120/80) 126/89 H -Extremity Use Left Arm -Pulse Rate (60-100) 70 Sitting -Blood Pressure (90/60-120/80) 153/87 H -Extremity Use Left Arm -Pulse Rate (60-100) 67 Lying -Blood Pressure (90/60-120/80) 140/84 H -Extremity Use Left Arm -Pulse Rate (60-100) 65 Intake and Output for Last 24 Hours 01/12/18 01/13/18 01/14/18 23:59 23:59 23:59 Intake Total 600 / 600 Output Total 525 / 525 Balance 75 / 75 Laboratory Tests Past 24 Hrs 01/13/18 01/13/18 01/13/18 18:10 18:10 20:15 WBC 10.6 RBC 5.41 Hgb 15.9 Hct 46.2 MCV 85.4 MCH 29.4 MCHC 34.4 RDW 13.0 RDW Differential 40.3 Plt Count 238 MPV 10.4 Immature Gran % (Auto) 0.200 Neut % (Auto) 75.9 H Lymph % (Auto) 15.6 L [place] % (Auto) 7.6 Eos % (Auto) 0.5 Baso % (Auto) 0.2 Absolute Neuts (auto) 8.1 H Absolute Lymphs (auto) 1.66 Total Counted Not Reportable PT 23.3 H INR 2.1 Sodium 139 Potassium 4.3 Chloride 103 Carbon Dioxide 28.0 Anion Gap 8 BUN 12 Creatinine 0.99 Estim Creat Clear Calc 84.92 Est GFR (MDRD) Af Amer 98 Est GFR (MDRD) Non-Af 81 BUN/Creatinine Ratio 12.1 Glucose 111 H Calcium 8.8 Magnesium Troponin I < 0.015 01/13/18 01/13/18 01/14/18 20:15 22:58 05:04 WBC RBC Hgb Hct MCV MCH MCHC RDW RDW Differential Plt Count MPV Immature Gran % (Auto) Neut % (Auto) Lymph % (Auto) [place] % (Auto) Eos % (Auto) Baso % (Auto) Absolute Neuts (auto) Absolute Lymphs (auto) Total Counted PT 20.5 H INR 1.8 Sodium Potassium Chloride Carbon Dioxide Anion Gap BUN Creatinine Estim Creat Clear Calc Est GFR (MDRD) Af Amer Est GFR (MDRD) Non-Af BUN/Creatinine Ratio Glucose Calcium Magnesium Troponin I < 0.015 < 0.015 01/14/18 05:04 WBC RBC Hgb Hct MCV MCH MCHC RDW RDW Differential Plt Count MPV Immature Gran % (Auto) Neut % (Auto) Lymph % (Auto) [place] % (Auto) Eos % (Auto) Baso % (Auto) Absolute Neuts (auto) Absolute Lymphs (auto) Total Counted PT INR Sodium 140 Potassium 4.0 Chloride 104 Carbon Dioxide 26.0 Anion Gap 10 BUN 12 Creatinine 0.99 Estim Creat Clear Calc 84.92 Est GFR (MDRD) Af Amer 98 Est GFR (MDRD) Non-Af 81 BUN/Creatinine Ratio 12.1 Glucose 149 H Calcium 8.8 Magnesium 2.2 Troponin I POC Glucose 01/13/18 22:49 POC Glucose 113 H Medical Necessity - Tobacco Use Smoking Status: Former smoker Assessment/Plan All Active Problems Dizziness (Acute) Near syncope (Acute) Bradycardia (Acute) Atrial fibrillation with rapid ventricular response (Acute) Hx-TIA (transient ischemic attack) (Resolved) 1. Near syncope 2/2 bradycardia - improved with sotalol and metoprolol held. Restart toprol. Echo in AM. Maintain on tele. No events so far. Trop neg x 3. Mag normal. Has outside firesetter who has discussed pacer option with him in the past. -Positive orthostatic vitals. Recheck after starting sotalol. Resting BP is elevated so defer additional agents like midodrine. 2. Hx Paroxysmal Afib - rate controlled, SR. Warfarin subtherapeutic. 3. CAD - prior cabg, stents 4. Hx AV stenosis - s/p bioprosthetic valve 5. HTN - running high, likely 2/2 help meds, adjust if remains elevated after restarting sotalol 6. DMt2 with obesity - amaryl, add SSI. 7. MAI - compliant with CPAP DVT ppx: warfarin DC planning: PTOT This patient was seen by Shane Diggs PA-C under the supervision of Doctor Pedro. <Tye Vasquez - Last Filed: 01/14/18 14:55> Subjective: Patient was seen and examined. I saw the patient during previous admission in 2013 for A. fib with RVR. At that time he had echo, CINTHYA and cardiac cath. He had short run of NSVT at that time. He used to follow Dr. Rascon and currently follows Dr Kristian Cordova in [place]. Patient on heavy dose of rate control medications including sotalol 120 mg a.m. and 160 mg at bedtime, metoprolol 50 mg twice daily and Cardizem CD 120 mg daily. Patient said he came yesterday when he is feeling dizzy, lightheaded and her heart rate was in 20s-30s and was almost passed out but denies fall or syncope. 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 - Physical Exam General: Alert, Oriented x3, Cooperative HEENT: Atraumatic, PERRLA, EOMI, Normocephalic Neck: Supple, No JVD, Negative Carotid Bruits Lungs: Clear to auscultation, Normal air movement Cardiovascular: Normal S1, Normal S2, Bradycardic, Murmur - Systolic murmur over left lower sternal border and aortic region, - - Status post AVR Abdomen: Bowel Sounds Present, Soft, Non Tender Extremities: No edema, Capillary Refill Less than 3 Seconds Skin: No rashes, No breakdown Musculoskeletal: No Tenderness to Palpation of Joints or Extremities Neurological: Cranial nerves II-XII grossly intact Psych/Mental Status: Normal Affect, Appropriate Vital Signs Temp Pulse Resp BP Pulse Ox 97.9 F 60 16 154/83 H 97 01/14/18 10:55 01/14/18 10:58 01/14/18 10:55 01/14/18 10:55 01/14/18 10:55 Oxygen Delivery Method Room Air Weight: 262 lb 5.601 oz Body Mass Index (BMI) 35.6 Orthostatic Vital Signs Start: 01/14/18 05:19 Freq: q24h Status: Active Protocol: Activity Type Activity Date Activity User E-Sign Co-Sign Detail Recorded Client Recorded Date Recorded By Document 01/14/18 04:55 [facility] [id number] 01/14/18 05:22 KARL 01/14/18 04:55 Orthostatic Vitals Standing -Blood Pressure (90/60-120/80) 126/89 H -Extremity Use Left Arm -Pulse Rate (60-100) 70 Sitting -Blood Pressure (90/60-120/80) 153/87 H -Extremity Use Left Arm -Pulse Rate (60-100) 67 Lying -Blood Pressure (90/60-120/80) 140/84 H -Extremity Use Left Arm -Pulse Rate (60-100) 65 Intake and Output for Last 24 Hours 01/12/18 01/13/18 01/14/18 23:59 23:59 23:59 Intake Total 1220 / 1220 Output Total 525 / 525 Balance 695 / 695 Laboratory Tests Past 24 Hrs 01/13/18 01/13/18 01/13/18 18:10 18:10 20:15 WBC 10.6 RBC 5.41 Hgb 15.9 Hct 46.2 MCV 85.4 MCH 29.4 MCHC 34.4 RDW 13.0 RDW Differential 40.3 Plt Count 238 MPV 10.4 Immature Gran % (Auto) 0.200 Neut % (Auto) 75.9 H Lymph % (Auto) 15.6 L [place] % (Auto) 7.6 Eos % (Auto) 0.5 Baso % (Auto) 0.2 Absolute Neuts (auto) 8.1 H Absolute Lymphs (auto) 1.66 Total Counted Not Reportable PT 23.3 H INR 2.1 Sodium 139 Potassium 4.3 Chloride 103 Carbon Dioxide 28.0 Anion Gap 8 BUN 12 Creatinine 0.99 Estim Creat Clear Calc 84.92 Est GFR (MDRD) Af Amer 98 Est GFR (MDRD) Non-Af 81 BUN/Creatinine Ratio 12.1 Glucose 111 H Calcium 8.8 Magnesium Troponin I < 0.015 01/13/18 01/13/18 01/14/18 20:15 22:58 05:04 WBC RBC Hgb Hct MCV MCH MCHC RDW RDW Differential Plt Count MPV Immature Gran % (Auto) Neut % (Auto) Lymph % (Auto) [place] % (Auto) Eos % (Auto) Baso % (Auto) Absolute Neuts (auto) Absolute Lymphs (auto) Total Counted PT 20.5 H INR 1.8 Sodium Potassium Chloride Carbon Dioxide Anion Gap BUN Creatinine Estim Creat Clear Calc Est GFR (MDRD) Af Amer Est GFR (MDRD) Non-Af BUN/Creatinine Ratio Glucose Calcium Magnesium Troponin I < 0.015 < 0.015 01/14/18 05:04 WBC RBC Hgb Hct MCV MCH MCHC RDW RDW Differential Plt Count MPV Immature Gran % (Auto) Neut % (Auto) Lymph % (Auto) [place] % (Auto) Eos % (Auto) Baso % (Auto) Absolute Neuts (auto) Absolute Lymphs (auto) Total Counted PT INR Sodium 140 Potassium 4.0 Chloride 104 Carbon Dioxide 26.0 Anion Gap 10 BUN 12 Creatinine 0.99 Estim Creat Clear Calc 84.92 Est GFR (MDRD) Af Amer 98 Est GFR (MDRD) Non-Af 81 BUN/Creatinine Ratio 12.1 Glucose 149 H Calcium 8.8 Magnesium 2.2 Troponin I POC Glucose 01/14/18 01/13/18 12:23 22:49 POC Glucose 113 H 113 H Assessment/Plan This patient was seen in conjunction with Shane ROBLERO. I have independently interviewed and examined the patient and reviewed pertinent history, examination findings, laboratory and plan of management. I have reviewed the note and agree with the documented findings with the few additional points. In brief, patient is admitted for near syncope consistent with severe bradycardia. Patient very apprehensive of going off rate control medications including sotalol and metoprolol as he thinks he will be in A. fib with RVR as it happened in the past. Patient also has coronary artery disease status post 3 stents open heart surgery with bioprosthetic aortic valve replaced. During previous admission in January 2014, patient had echo is reported as EF 60% with hypokinetic anterior wall, moderate aortic insufficiency. Subsequently patient was taken to cardiac Clothes Drier Repairer and found 60-70% stenosis of posterior lateral branch of RCA and 70% stenosis of small obtuse marginal which was not amenable to angioplasty. Patient also had CINTHYA at that time showed moderate AR, no thrombus in left atrial appendage and bubble contrast study was negative of interatrial shunt. After that, patient had aortic valve replacement and double vessel bypass surgery in May 2015 at [facility]. Patient on heavy dose of rate control medications including sotalol 120 mg a.m. and 160 mg at bedtime, metoprolol 50 mg twice daily and Cardizem CD 120 mg daily. 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 INR is 1.8. Electrolytes within normal limit. Serial troponin enzymes negative. Continue aspirin. Discussed with firesetter Dr. Damian. He suggested sotalol 120 mg p.o. twice daily and discontinue metoprolol and Cardizem. He agreed to see the patient. 2D echo ordered. I have discussed my assessment with Shane ROBLERO and orders have been reviewed. Code Visit Inpatient E&M: 69864 Subs Hosp L3
[2018-01-14 12:30] LABS: Bedside Glucose 113 mg/dL (70-110)
[2018-01-14 16:30] LABS: Bedside Glucose 135 mg/dL (70-110)
--- NOTE | 2018-01-14 18:10 | PCM.CONS.C ---
Reason for Consult Date of Consultation: 01/14/18 Reason for Consultation: Bradycardia and dizziness History of Present Illness: The patient is a 63 year old M with a past medical history of hypertension and paroxysmal atrial fibrillation and possibly dilated cardiomyopathy who presented to the emergency room because he says that he was mildly dizzy and then his pulse ox at home showed that his heart rate was in the 20s. He says that he has been compliant with all his medications as well as her fluid intake. But on the day prior to admission he felt that he would pass out. He was seen in the emergency room and his heart rate was noted to be in the high 50s-60s. Occasional premature ventricular complexes were noted he was noted to be orthostatic. I was called this morning to consult him because his heart rate was in the 20s. Since admission he has not had any dizziness or diaphoresis no near syncope or syncope. [] Past Medical History Allergies/Adverse Reactions: Allergies cimetidine [From Tagamet] Allergy (Verified 01/13/18 17:21) irregular heart rate cimetidine HCl [From Tagamet] Allergy (Verified 01/13/18 17:21) irregular heart rate lansoprazole [From Prevacid] Allergy (Verified 01/13/18 17:21) irregular heart rate omeprazole [From Prilosec] Allergy (Verified 01/13/18 17:21) irregular heart rate omeprazole magnesium [From Prilosec] Allergy (Verified 01/13/18 17:21) irregular heart rate Home Medications: Ambulatory Orders Medication Instructions Recorded Glimepiride [Amaryl] 1 mg PO DAILY 02/04/14 Simvastatin [Zocor] 40 mg PO QHS 02/04/14 Magnesium 250 mg PO LUNCH 03/30/14 Aspirin [Aspirin, Baby] 81 mg PO DAILY@0800 #30 tab.chew 04/01/14 Benazepril HCl 40 mg PO DAILY #30 tablet 04/01/14 Diltiazem CD [Cardizem CD] 120 mg PO DAILY #30 capsule 04/01/14 Fish Oil/Dha/Epa [Fish Oil 1,200 1 each PO QHS 01/13/18 mg Fish Oil] Mag Hydrox/Al Hydrox/Simeth 30 ml PO QHS PRN 01/13/18 [Mylanta II] Metoprolol Tartrate [Lopressor 50 mg PO BID 01/13/18 (beta eleonora)] Nitroglycerin 0.4 mg SL DAILY PRN 01/13/18 Saw [place] 160 mg PO QHS 01/13/18 Sotalol HCl [Sotalol] 120 mg PO BREAKFAST 01/13/18 Sotalol HCl [Sotalol] 160 mg PO QHS 01/13/18 Warfarin [Coumadin] 5 mg PO QHS 01/13/18 Past Medical History (Chronic Problems): Chronic Problems History of back surgery (Chronic) Dilated cardiomyopathy (Chronic) CAD (coronary artery disease) (Chronic) Diabetes mellitus, type II (Chronic) Sleep apnea (Chronic) Sciatica (Chronic) intermittent since his back surgery BPH (benign prostatic hypertrophy) (Chronic) Paroxysmal atrial fibrillation (Chronic) history of anti-reflux surgery (Chronic) Obesity (BMI 30-39.9) (Chronic) HTN (hypertension) (Chronic) GERD (gastroesophageal reflux disease) (Chronic) Surgical History: angioplasty - with 3 stents in the past, tonsillectomy, - - anti-reflux surgery, low back surgery for disc disease Psychiatric History: No pertinent psych hx - *Family History Maternal History Items: - - mother at 51 of CAD....she had diabetes Paternal History Items: Heart Disease, - - father of a brain tumor and had heart disease Sibling History Items: Diabetes, - - he has a brother who had cancer of the arm(sarcoma)? has a sister with sarcoidosis Smoking Status: Former smoker Alcohol: None Drugs: None Review of Systems - Review of Systems General: Denies: Fever, Night Sweats, Fatigue Cardiovascular: Reports: Lightheadedness, Dizziness. Denies: Chest Discomfort, Shortness of Breath, Orthopnea, PND, Peripheral Edema, Palpitations, Near Syncope, Syncope Respiratory: Denies: Cough, Sputum Production, Hemoptysis Gastrointestinal: Denies: Hematemesis, Hematochezia, Melena Genitourinary: Denies: Dysuria, Hematuria Skin: Denies: Rash Subjectve: Pleasant gentleman in no apparent distress Objective: Vital Signs Temp Pulse Resp BP Pulse Ox 98.1 F 63 16 130/72 H 96 01/14/18 16:34 01/14/18 16:34 01/14/18 16:34 01/14/18 16:34 01/14/18 16:34 Oxygen Delivery Method Room Air Weight: 262 lb 5.601 oz Body Mass Index (BMI) 35.6 Orthostatic Vital Signs Start: 01/14/18 05:19 Freq: q24h Status: Active Protocol: Activity Type Activity Date Activity User E-Sign Co-Sign Detail Recorded Client Recorded Date Recorded By Document 01/14/18 04:55 KARL [id number] 01/14/18 05:22 KARL 01/14/18 04:55 Orthostatic Vitals Standing -Blood Pressure (90/60-120/80) 126/89 H -Extremity Use Left Arm -Pulse Rate (60-100) 70 Sitting -Blood Pressure (90/60-120/80) 153/87 H -Extremity Use Left Arm -Pulse Rate (60-100) 67 Lying -Blood Pressure (90/60-120/80) 140/84 H -Extremity Use Left Arm -Pulse Rate (60-100) 65 Intake and Output for Last 24 Hours 01/12/18 01/13/18 01/14/18 23:59 23:59 23:59 Intake Total 1220 / 1220 Output Total 525 / 525 Balance 695 / 695 General: Awake, Alert, Oriented x 3 HEENT: PERRL, EOMI, Sclera Non Icteric Neck: Supple, Good ROM, No Lymph Node Enlargement Lungs: Clear to auscultation Cardiovascular: Regular Rhythm, Normal S1, Normal S2, No Murmurs, No Rubs, No Gallops Vascular: No Carotid Bruits, Normal Femoral Pulses, Normal Radial Pulses, Normal Dorsalis Pedal Pulse, Normal Posterior Tibial Pulses Abdomen: Bowel Sounds Present, Soft, Non Tender, No HSM, No Organomegaly Extremities: No Cyanosis, No Clubbing, No edema Neurological: No Focal Motor or Sensory Deficit 01/13/18 18:10: WBC 10.6, RBC 5.41, Hgb 15.9, Hct 46.2, MCV 85.4, MCH 29.4, MCHC 34.4, RDW 13.0, RDW Differential 40.3, Plt Count 238, MPV 10.4, Immature Gran % (Auto) 0.200, Neut % (Auto) 75.9 H, Lymph % (Auto) 15.6 L, [place] % (Auto) 7.6, Eos % (Auto) 0.5, Baso % (Auto) 0.2, Absolute Neuts (auto) 8.1 H, Total Counted Not Reportable 01/13/18 18:10: Sodium 139, Potassium 4.3, Chloride 103, Carbon Dioxide 28.0, Anion Gap 8, BUN 12, Creatinine 0.99, Est GFR (MDRD) Af Amer 98, Est GFR (MDRD) Non-Af 81, BUN/Creatinine Ratio 12.1, Glucose 111 H, Calcium 8.8, Troponin I < 0.015 01/13/18 20:15: PT 23.3 H, INR 2.1 01/13/18 20:15: Troponin I < 0.015 01/13/18 22:58: Troponin I < 0.015 01/14/18 05:04: PT 20.5 H, INR 1.8 01/14/18 05:04: Sodium 140, Potassium 4.0, Chloride 104, Carbon Dioxide 26.0, Anion Gap 10, BUN 12, Creatinine 0.99, Est GFR (MDRD) Af Amer 98, Est GFR (MDRD) Non-Af 81, BUN/Creatinine Ratio 12.1, Glucose 149 H, Calcium 8.8, Magnesium 2.2 Rhythm: EKG: Sinus bradycardia with a rate of 58 bpm and premature ventricular complexes Assessment/Plan 1. Dizziness. Etiology of his dizziness is not entirely clear to me at this particular time. It does not appear that he has had significant bradycardia arrhythmias to explain the above and he does not appear to be orthostatic which may be related to dehydration. It is possible that it may be related to a combination of his medications. I would recommend reducing his lisinopril to 20 mg a day. 2. Bradycardia He does have a history of bradycardia and is on 3 negatively chronotropic agents. He is on sotalol 120 mg a.m. and 160 mg p.m., metoprolol 50 mg twice a day, and diltiazem 120 mg a day. I had an extended discussion with him telling him that the above combination would likely end him up with a pacemaker. I would recommend that we reduce the metoprolol to 25 mg twice a day and have him follow-up with his primary real estate sales associate with the hopes that this can be weaned off completely. He tells me that they once backed off on his beta-eleonora and he went back into atrial fibrillation 3. Paroxysmal atrial fibrillation He is on sotalol for the above. My recommendation would be for him to continue with 120 mg twice daily. However he insists that his primary real estate sales associate wanted him on this combination. Will remain on anticoagulation. I would recommend that if he is being discharged we reduce the dose of his metoprolol to 25 mg twice a day. 4. Cardiomyopathy Etiology is not entirely clear. I would like to also obtain an echocardiogram to assess his left ventricular function. Depending on the findings further recommendations will be made. Thank you for allowing me to participate in the care of your patient. Please don't hesitate to call if any issues arise
--- NOTE | 2018-01-14 18:16 | CON.PCM_ITS ---
Reason for Consult Date of Consultation: 01/14/18 Reason for Consultation: Bradycardia and dizziness History of Present Illness: The patient is a 63 year old M with a past medical history of hypertension and paroxysmal atrial fibrillation and possibly dilated cardiomyopathy who presented to the emergency room because he says that he was mildly dizzy and then his pulse ox at home showed that his heart rate was in the 20s. He says that he has been compliant with all his medications as well as her fluid intake. But on the day prior to admission he felt that he would pass out. He was seen in the emergency room and his heart rate was noted to be in the high 50s-60s. Occasional premature ventricular complexes were noted he was noted to be orthostatic. I was called this morning to consult him because his heart rate was in the 20s. Since admission he has not had any dizziness or diaphoresis no near syncope or syncope. [] Past Medical History Allergies/Adverse Reactions: Allergies cimetidine [From Tagamet] Allergy (Verified 01/13/18 17:21) irregular heart rate cimetidine HCl [From Tagamet] Allergy (Verified 01/13/18 17:21) irregular heart rate lansoprazole [From Prevacid] Allergy (Verified 01/13/18 17:21) irregular heart rate omeprazole [From Prilosec] Allergy (Verified 01/13/18 17:21) irregular heart rate omeprazole magnesium [From Prilosec] Allergy (Verified 01/13/18 17:21) irregular heart rate Home Medications: Ambulatory Orders Medication Instructions Recorded Glimepiride [Amaryl] 1 mg PO DAILY 02/04/14 Simvastatin [Zocor] 40 mg PO QHS 02/04/14 Magnesium 250 mg PO LUNCH 03/30/14 Aspirin [Aspirin, Baby] 81 mg PO DAILY@0800 #30 tab.chew 04/01/14 Benazepril HCl 40 mg PO DAILY #30 tablet 04/01/14 Diltiazem CD [Cardizem CD] 120 mg PO DAILY #30 capsule 04/01/14 Fish Oil/Dha/Epa [Fish Oil 1,200 1 each PO QHS 01/13/18 mg Fish Oil] Mag Hydrox/Al Hydrox/Simeth 30 ml PO QHS PRN 01/13/18 [Mylanta II] Metoprolol Tartrate [Lopressor 50 mg PO BID 01/13/18 (beta eleonora)] Nitroglycerin 0.4 mg SL DAILY PRN 01/13/18 Saw [place] 160 mg PO QHS 01/13/18 Sotalol HCl [Sotalol] 120 mg PO BREAKFAST 01/13/18 Sotalol HCl [Sotalol] 160 mg PO QHS 01/13/18 Warfarin [Coumadin] 5 mg PO QHS 01/13/18 Past Medical History (Chronic Problems): Chronic Problems History of back surgery (Chronic) Dilated cardiomyopathy (Chronic) CAD (coronary artery disease) (Chronic) Diabetes mellitus, type II (Chronic) Sleep apnea (Chronic) Sciatica (Chronic) intermittent since his back surgery BPH (benign prostatic hypertrophy) (Chronic) Paroxysmal atrial fibrillation (Chronic) history of anti-reflux surgery (Chronic) Obesity (BMI 30-39.9) (Chronic) HTN (hypertension) (Chronic) GERD (gastroesophageal reflux disease) (Chronic) Surgical History: angioplasty - with 3 stents in the past, tonsillectomy, - - anti-reflux surgery, low back surgery for disc disease Psychiatric History: No pertinent psych hx - *Family History Maternal History Items: - - mother at 51 of CAD....she had diabetes Paternal History Items: Heart Disease, - - father of a brain tumor and had heart disease Sibling History Items: Diabetes, - - he has a brother who had cancer of the arm(sarcoma)? has a sister with sarcoidosis Smoking Status: Former smoker Alcohol: None Drugs: None Review of Systems - Review of Systems General: Denies: Fever, Night Sweats, Fatigue Cardiovascular: Reports: Lightheadedness, Dizziness. Denies: Chest Discomfort, Shortness of Breath, Orthopnea, PND, Peripheral Edema, Palpitations, Near Syncope, Syncope Respiratory: Denies: Cough, Sputum Production, Hemoptysis Gastrointestinal: Denies: Hematemesis, Hematochezia, Melena Genitourinary: Denies: Dysuria, Hematuria Skin: Denies: Rash Subjectve: Pleasant gentleman in no apparent distress Objective: Vital Signs Temp Pulse Resp BP Pulse Ox 98.1 F 63 16 130/72 H 96 01/14/18 16:34 01/14/18 16:34 01/14/18 16:34 01/14/18 16:34 01/14/18 16:34 Oxygen Delivery Method Room Air Weight: 262 lb 5.601 oz Body Mass Index (BMI) 35.6 Orthostatic Vital Signs Start: 01/14/18 05:19 Freq: q24h Status: Active Protocol: Activity Type Activity Date Activity User E-Sign Co-Sign Detail Recorded Client Recorded Date Recorded By Document 01/14/18 04:55 KARL [id number] 01/14/18 05:22 KARL 01/14/18 04:55 Orthostatic Vitals Standing -Blood Pressure (90/60-120/80) 126/89 H -Extremity Use Left Arm -Pulse Rate (60-100) 70 Sitting -Blood Pressure (90/60-120/80) 153/87 H -Extremity Use Left Arm -Pulse Rate (60-100) 67 Lying -Blood Pressure (90/60-120/80) 140/84 H -Extremity Use Left Arm -Pulse Rate (60-100) 65 Intake and Output for Last 24 Hours 01/12/18 01/13/18 01/14/18 23:59 23:59 23:59 Intake Total 1220 / 1220 Output Total 525 / 525 Balance 695 / 695 General: Awake, Alert, Oriented x 3 HEENT: PERRL, EOMI, Sclera Non Icteric Neck: Supple, Good ROM, No Lymph Node Enlargement Lungs: Clear to auscultation Cardiovascular: Regular Rhythm, Normal S1, Normal S2, No Murmurs, No Rubs, No Gallops Vascular: No Carotid Bruits, Normal Femoral Pulses, Normal Radial Pulses, Normal Dorsalis Pedal Pulse, Normal Posterior Tibial Pulses Abdomen: Bowel Sounds Present, Soft, Non Tender, No HSM, No Organomegaly Extremities: No Cyanosis, No Clubbing, No edema Neurological: No Focal Motor or Sensory Deficit 01/13/18 18:10: WBC 10.6, RBC 5.41, Hgb 15.9, Hct 46.2, MCV 85.4, MCH 29.4, MCHC 34.4, RDW 13.0, RDW Differential 40.3, Plt Count 238, MPV 10.4, Immature Gran % (Auto) 0.200, Neut % (Auto) 75.9 H, Lymph % (Auto) 15.6 L, [place] % (Auto) 7.6, Eos % (Auto) 0.5, Baso % (Auto) 0.2, Absolute Neuts (auto) 8.1 H, Total Counted Not Reportable 01/13/18 18:10: Sodium 139, Potassium 4.3, Chloride 103, Carbon Dioxide 28.0, Anion Gap 8, BUN 12, Creatinine 0.99, Est GFR (MDRD) Af Amer 98, Est GFR (MDRD) Non-Af 81, BUN/Creatinine Ratio 12.1, Glucose 111 H, Calcium 8.8, Troponin I < 0.015 01/13/18 20:15: PT 23.3 H, INR 2.1 01/13/18 20:15: Troponin I < 0.015 01/13/18 22:58: Troponin I < 0.015 01/14/18 05:04: PT 20.5 H, INR 1.8 01/14/18 05:04: Sodium 140, Potassium 4.0, Chloride 104, Carbon Dioxide 26.0, Anion Gap 10, BUN 12, Creatinine 0.99, Est GFR (MDRD) Af Amer 98, Est GFR (MDRD) Non-Af 81, BUN/Creatinine Ratio 12.1, Glucose 149 H, Calcium 8.8, Magnesium 2.2 Rhythm: EKG: Sinus bradycardia with a rate of 58 bpm and premature ventricular complexes Assessment/Plan 1. Dizziness. * Etiology of his dizziness is not entirely clear to me at this particular time. It does not appear that he has had significant bradycardia arrhythmias to explain the above and he does not appear to be orthostatic which may be related to dehydration. It is possible that it may be related to a combination of his medications. * I would recommend reducing his lisinopril to 20 mg a day. * 2. Bradycardia * He does have a history of bradycardia and is on 3 negatively chronotropic agents. He is on sotalol 120 mg a.m. and 160 mg p.m., metoprolol 50 mg twice a day, and diltiazem 120 mg a day. I had an extended discussion with him telling him that the above combination would likely end him up with a pacemaker. I would recommend that we reduce the metoprolol to 25 mg twice a day and have him follow-up with his primary bmx rider with the hopes that this can be weaned off completely. He tells me that they once backed off on his beta-eleonora and he went back into atrial fibrillation * 3. Paroxysmal atrial fibrillation * He is on sotalol for the above. My recommendation would be for him to continue with 120 mg twice daily. However he insists that his primary bmx rider wanted him on this combination. * Will remain on anticoagulation. * I would recommend that if he is being discharged we reduce the dose of his metoprolol to 25 mg twice a day. * 4. Cardiomyopathy * Etiology is not entirely clear. I would like to also obtain an echocardiogram to assess his left ventricular function. Depending on the findings further recommendations will be made. * * Thank you for allowing me to participate in the care of your patient. Please don't hesitate to call if any issues arise
[2018-01-14 21:55] LABS: Bedside Glucose 114 mg/dL (70-110)
[2018-01-14] MEDS: Atorvastatin Calcium 20 MG Tablet PO (22:43)
[2018-01-15 02:57] VITALS: PULSE 53
[2018-01-15 03:45] VITALS: BP 108/67; BP 115/62; BP 118/76; PULSE 57; PULSE 61; PULSE 69; RESP 18; TEMP 36.6; O2SAT 98
[2018-01-15 06:15] LABS: Cholesterol 132 mg/dL (200); High Density Lipoprotein 37 mg/dL; Magnesium 2.1 mg/dL (1.6-2.6); Triglycerides 129 mg/dL; Very Low Density Lipoprotein 26 mg/dL (5-40)
[2018-01-15 06:19] LABS: International Normalized Ratio 1.7; Prothrombin Time (Protime)PT. 20.3 SECONDS (11.7-14.9)
[2018-01-15 06:49] VITALS: PULSE 56
[2018-01-15 06:56] LABS: Bedside Glucose 133 mg/dL (70-110)
--- NOTE | 2018-01-15 07:44 | PCM.PN.CARD ---
Subjectve: Patient seen and evaluated. Objective: Vital Signs Temp Pulse Resp BP Pulse Ox 97.8 F 56 L 18 115/62 98 01/15/18 03:45 01/15/18 06:49 01/15/18 03:45 01/15/18 03:45 01/15/18 03:45 Oxygen Delivery Method Room Air Weight: 262 lb 5.601 oz Body Mass Index (BMI) 35.6 Orthostatic Vital Signs Start: 01/14/18 05:19 Freq: q24h Status: Active Protocol: Activity Type Activity Date Activity User E-Sign Co-Sign Detail Recorded Client Recorded Date Recorded By Document 01/15/18 03:45 KARL [id number] 01/15/18 04:41 KARL 01/15/18 03:45 Orthostatic Vitals Standing -Blood Pressure (90/60-120/80) 118/76 -Extremity Use Left Arm -Pulse Rate (60-100) 69 Sitting -Blood Pressure (90/60-120/80) 108/67 -Extremity Use Left Arm -Pulse Rate (60-100) 61 Lying -Blood Pressure (90/60-120/80) 115/62 -Extremity Use Left Arm -Pulse Rate (60-100) 57 L Intake and Output for Last 24 Hours 01/13/18 01/14/18 01/15/18 23:59 23:59 23:59 Intake Total 1220 / 1220 480 / 480 Output Total 525 / 525 375 / 375 Balance 695 / 695 105 / 105 General: Awake, Alert, Oriented x 3 HEENT: PERRL, EOMI, Sclera Non Icteric Neck: Supple, Good ROM, No Lymph Node Enlargement Lungs: Clear to auscultation Cardiovascular: Regular Rhythm, Normal S1, Normal S2, No Murmurs, No Rubs, No Gallops Vascular: No Carotid Bruits, Normal Femoral Pulses, Normal Radial Pulses, Normal Dorsalis Pedal Pulse, Normal Posterior Tibial Pulses Abdomen: Bowel Sounds Present, Soft, Non Tender, No HSM, No Organomegaly Extremities: No Cyanosis, No Clubbing, No edema Neurological: No Focal Motor or Sensory Deficit 01/15/18 05:08: PT 20.3 H, INR 1.7 01/15/18 05:08: Magnesium 2.1, Triglycerides 129, Cholesterol 132, LDL Cholesterol 69, VLDL Cholesterol 26, HDL Cholesterol 37 L Rhythm: EKG: ECHO: Stress Test: Cardiac Cath: PCI: CT Surgery: Holter monitor: EPS: PPM: CXR: Chest CT Scan: Medical Necessity - Tobacco Use Smoking Status: Former smoker Assessment/Plan 1. Dizziness. Etiology of his dizziness is not entirely clear to me at this particular time. It does not appear that he has had significant bradycardia arrhythmias to explain the above and he does not appear to be orthostatic which may be related to dehydration. It is possible that it may be related to a combination of his medications. I would recommend reducing his lisinopril to 20 mg a day. 2. Bradycardia He does have a history of bradycardia and is on 3 negatively chronotropic agents. He is on sotalol 120 mg a.m. and 160 mg p.m., metoprolol 50 mg twice a day, and diltiazem 120 mg a day. I had an extended discussion with him telling him that the above combination would likely end him up with a pacemaker. I would recommend that we reduce the metoprolol to 25 mg twice a day and have him follow-up with his primary print line feeder with the hopes that this can be weaned off completely. He tells me that they once backed off on his beta-eleonora and he went back into atrial fibrillation 3. Paroxysmal atrial fibrillation He is on sotalol for the above. My recommendation would be for him to continue with 120 mg twice daily. However he insists that his primary print line feeder wanted him on this combination. Will remain on anticoagulation. I would recommend that if he is being discharged we reduce the dose of his metoprolol to 25 mg twice a day. 4. Cardiomyopathy Etiology is not entirely clear. I would like to also obtain an echocardiogram to assess his left ventricular function. Depending on the findings further recommendations will be made. Patient does not want much changed with regard to his medications. He would want this dealt with by his primary print line feeder. Thank you for allowing me to participate in the care of your patient. Please don't hesitate to call if any issues arise
--- NOTE | 2018-01-15 07:48 | PN.CARD_ITS ---
Subjectve: Patient seen and evaluated. Objective: Vital Signs Temp Pulse Resp BP Pulse Ox 97.8 F 56 L 18 115/62 98 01/15/18 03:45 01/15/18 06:49 01/15/18 03:45 01/15/18 03:45 01/15/18 03:45 Oxygen Delivery Method Room Air Weight: 262 lb 5.601 oz Body Mass Index (BMI) 35.6 Orthostatic Vital Signs Start: 01/14/18 05:19 Freq: q24h Status: Active Protocol: Activity Type Activity Date Activity User E-Sign Co-Sign Detail Recorded Client Recorded Date Recorded By Document 01/15/18 03:45 KARL [id number] 01/15/18 04:41 KARL 01/15/18 03:45 Orthostatic Vitals Standing -Blood Pressure (90/60-120/80) 118/76 -Extremity Use Left Arm -Pulse Rate (60-100) 69 Sitting -Blood Pressure (90/60-120/80) 108/67 -Extremity Use Left Arm -Pulse Rate (60-100) 61 Lying -Blood Pressure (90/60-120/80) 115/62 -Extremity Use Left Arm -Pulse Rate (60-100) 57 L Intake and Output for Last 24 Hours 01/13/18 01/14/18 01/15/18 23:59 23:59 23:59 Intake Total 1220 / 1220 480 / 480 Output Total 525 / 525 375 / 375 Balance 695 / 695 105 / 105 General: Awake, Alert, Oriented x 3 HEENT: PERRL, EOMI, Sclera Non Icteric Neck: Supple, Good ROM, No Lymph Node Enlargement Lungs: Clear to auscultation Cardiovascular: Regular Rhythm, Normal S1, Normal S2, No Murmurs, No Rubs, No Gallops Vascular: No Carotid Bruits, Normal Femoral Pulses, Normal Radial Pulses, Normal Dorsalis Pedal Pulse, Normal Posterior Tibial Pulses Abdomen: Bowel Sounds Present, Soft, Non Tender, No HSM, No Organomegaly Extremities: No Cyanosis, No Clubbing, No edema Neurological: No Focal Motor or Sensory Deficit 01/15/18 05:08: PT 20.3 H, INR 1.7 01/15/18 05:08: Magnesium 2.1, Triglycerides 129, Cholesterol 132, LDL Cholesterol 69, VLDL Cholesterol 26, HDL Cholesterol 37 L Rhythm: EKG: ECHO: Stress Test: Cardiac Cath: PCI: CT Surgery: Holter monitor: EPS: PPM: CXR: Chest CT Scan: Medical Necessity - Tobacco Use Smoking Status: Former smoker Assessment/Plan 1. Dizziness. * Etiology of his dizziness is not entirely clear to me at this particular time. It does not appear that he has had significant bradycardia arrhythmias to explain the above and he does not appear to be orthostatic which may be related to dehydration. It is possible that it may be related to a combination of his medications. * I would recommend reducing his lisinopril to 20 mg a day. * 2. Bradycardia * He does have a history of bradycardia and is on 3 negatively chronotropic agents. He is on sotalol 120 mg a.m. and 160 mg p.m., metoprolol 50 mg twice a day, and diltiazem 120 mg a day. I had an extended discussion with him telling him that the above combination would likely end him up with a pacemaker. I would recommend that we reduce the metoprolol to 25 mg twice a day and have him follow-up with his primary field technical assistant with the hopes that this can be weaned off completely. He tells me that they once backed off on his beta-eleonora and he went back into atrial fibrillation * 3. Paroxysmal atrial fibrillation * He is on sotalol for the above. My recommendation would be for him to continue with 120 mg twice daily. However he insists that his primary field technical assistant wanted him on this combination. * Will remain on anticoagulation. * I would recommend that if he is being discharged we reduce the dose of his metoprolol to 25 mg twice a day. * 4. Cardiomyopathy * Etiology is not entirely clear. I would like to also obtain an echocardiogram to assess his left ventricular function. Depending on the findings further recommendations will be made. * * * Patient does not want much changed with regard to his medications. He would want this dealt with by his primary field technical assistant. * Thank you for allowing me to participate in the care of your patient. Please don't hesitate to call if any issues arise
[2018-01-15] MEDS: Aspirin 81 MG TAB.CHEW PO (09:21)
[2018-01-15] MEDS: Sotalol Hydrochloride 80 MG Tablet 120 MG PO (09:21)
[2018-01-15] MEDS: Glimepiride 1 MG Tablet PO (09:21)
[2018-01-15 09:22] VITALS: PULSE 68
[2018-01-15] MEDS: Lisinopril 20 MG Tablet PO (09:22)
[2018-01-15] MEDS: Metoprolol Tartrate 25 MG Tablet PO (09:22)
[2018-01-15 09:30] VITALS: BP 138/81; PULSE 65; RESP 18; TEMP 36.7; O2SAT 96
--- NOTE | 2018-01-15 10:48 | PCM.DC ---
- Discharge Diagnoses Current Active Problems: Current Active and Chronic Problems Dizziness (Acute) Near syncope (Acute) Bradycardia (Acute) You will use the following diet at home:: Calorie/Carbohydrate Controlled (specify 1200, 1400, etc) - 1800 vanessa / day, Cardiac Your food should be the consistency of: Regular Your liquids should be the consistency of: Regular/Thin Discharge Activity: Return to Normal Activity Allergies/Adverse Reactions: Allergies cimetidine [From Tagamet] Allergy (Verified 01/13/18 17:21) irregular heart rate cimetidine HCl [From Tagamet] Allergy (Verified 01/13/18 17:21) irregular heart rate lansoprazole [From Prevacid] Allergy (Verified 01/13/18 17:21) irregular heart rate omeprazole [From Prilosec] Allergy (Verified 01/13/18 17:21) irregular heart rate omeprazole magnesium [From Prilosec] Allergy (Verified 01/13/18 17:21) irregular heart rate Medications to take at Discharge Glimepiride [Amaryl] 1 mg PO DAILY 02/04/14 Simvastatin [Zocor] 40 mg PO QHS 02/04/14 Magnesium 250 mg PO LUNCH 03/30/14 Aspirin [Aspirin, Baby] 81 mg PO DAILY@0800 #30 tab.chew 04/01/14 Benazepril HCl 40 mg PO DAILY #30 tablet 04/01/14 Diltiazem CD [Cardizem CD] 120 mg PO DAILY #30 capsule 04/01/14 Fish Oil/Dha/Epa [Fish Oil 1,200 mg Fish Oil] 1 each PO QHS 01/13/18 Mag Hydrox/Al Hydrox/Simeth [Mylanta II] 30 ml PO QHS PRN 01/13/18 Nitroglycerin 0.4 mg SL DAILY PRN 01/13/18 Warfarin [Coumadin] 5 mg PO QHS 01/13/18 Metoprolol Tartrate [Lopressor (beta eleonora)] 25 mg PO BID #60 tab 01/15/18 Sotalol HCl [Sotalol] 120 mg PO BID #60 tab 01/15/18 The following prescriptions were given: Metoprolol Tartrate [Lopressor (beta eleonora)] 25 mg PO BID #60 tab Sotalol HCl [Sotalol] 120 mg PO BID #60 tab Primary Care Physician: Neumann,Kofi, MD [Primary Care Provider] - Please follow up with your Primary Care Physician in: 1-2 weeks Test Results: Test results from this visit will be discussed in further detail at your follow-up appointment, if applicable. Please Follow Up With: Your own wheel buffer When: 1 week Proposed Discharge Date: 01/15/18
--- NOTE | 2018-01-15 10:51 | DCINST_ITS ---
- Discharge Diagnoses Current Active Problems: Current Active and Chronic Problems Dizziness (Acute) Near syncope (Acute) Bradycardia (Acute) You will use the following diet at home:: Calorie/Carbohydrate Controlled (specify 1200, 1400, etc) - 1800 vanessa / day, Cardiac Your food should be the consistency of: Regular Your liquids should be the consistency of: Regular/Thin Discharge Activity: Return to Normal Activity Allergies/Adverse Reactions: Allergies cimetidine [From Tagamet] Allergy (Verified 01/13/18 17:21) irregular heart rate cimetidine HCl [From Tagamet] Allergy (Verified 01/13/18 17:21) irregular heart rate lansoprazole [From Prevacid] Allergy (Verified 01/13/18 17:21) irregular heart rate omeprazole [From Prilosec] Allergy (Verified 01/13/18 17:21) irregular heart rate omeprazole magnesium [From Prilosec] Allergy (Verified 01/13/18 17:21) irregular heart rate Medications to take at Discharge Glimepiride [Amaryl] 1 mg PO DAILY 02/04/14 Simvastatin [Zocor] 40 mg PO QHS 02/04/14 Magnesium 250 mg PO LUNCH 03/30/14 Aspirin [Aspirin, Baby] 81 mg PO DAILY@0800 #30 tab.chew 04/01/14 Benazepril HCl 40 mg PO DAILY #30 tablet 04/01/14 Diltiazem CD [Cardizem CD] 120 mg PO DAILY #30 capsule 04/01/14 Fish Oil/Dha/Epa [Fish Oil 1,200 mg Fish Oil] 1 each PO QHS 01/13/18 Mag Hydrox/Al Hydrox/Simeth [Mylanta II] 30 ml PO QHS PRN 01/13/18 Nitroglycerin 0.4 mg SL DAILY PRN 01/13/18 Warfarin [Coumadin] 5 mg PO QHS 01/13/18 Metoprolol Tartrate [Lopressor (beta eleonora)] 25 mg PO BID #60 tab 01/15/18 Sotalol HCl [Sotalol] 120 mg PO BID #60 tab 01/15/18 The following prescriptions were given: Metoprolol Tartrate [Lopressor (beta eleonora)] 25 mg PO BID #60 tab Sotalol HCl [Sotalol] 120 mg PO BID #60 tab Primary Care Physician: Neumann,Kofi, MD [Primary Care Provider] - Please follow up with your Primary Care Physician in: 1-2 weeks Test Results: Test results from this visit will be discussed in further detail at your follow- up appointment, if applicable. Please Follow Up With: Your own desolderer When: 1 week Proposed Discharge Date: 01/15/18
[2018-01-15 10:59] VITALS: PULSE 60
--- NOTE | 2018-01-15 11:15 | PCM.DC.SUM ---
<Shane Diggs - Last Filed: 01/15/18 11:15> Discharge Date and Diagnosis Date of Admission: 01/13/18 Date of Discharge: 01/15/18 - Primary Discharge Diagnosis Active and Suspected Problems Near syncope 2/2 bradycardia Orthostatic hypotension 2/2 medication side effect P Afib Hx AV stenosis s/p bioprosthetic valve HTN DMt2 MAI on cpap CAD prior CABG/stents - Secondary Discharge Diagnosis Chronic Problems History of back surgery (Chronic) Dilated cardiomyopathy (Chronic) CAD (coronary artery disease) (Chronic) Diabetes mellitus, type II (Chronic) Sleep apnea (Chronic) Sciatica (Chronic) intermittent since his back surgery BPH (benign prostatic hypertrophy) (Chronic) Paroxysmal atrial fibrillation (Chronic) history of anti-reflux surgery (Chronic) Obesity (BMI 30-39.9) (Chronic) HTN (hypertension) (Chronic) GERD (gastroesophageal reflux disease) (Chronic) Hospital Course and Treatment Imaging Results: RAD/Chest 1 View (Portable) IMPRESSION: Chronic interstitial changes with right pleural effusion. Follow-up recommended to assure resolution Echo: Interpretation Summary Normal LV size. Left ventricular systolic function is normal. The estimated ejection fraction is 65 %. Stage 1 diastolic dysfunction. Mean aortic valve gradient 20 mmHg. Mild aortic stenosis. Calculated aortic valve area (continuity equation) is 1.6 cm2. Contrast injection was performed. Consults: Rickie - cardiology Operations: None Procedures: 2-D Echocardiogram Summary of Care Provided: Physical exam on day of discharge: General: Resting comfortably NAD Psych: A/Ox3 normal affect HEENT: PEARRLA AT NC Neck: Supple NT CV: RRR no 2/6 systolic murmur best heard at apex. Resp: CTA Abd: [id number] Soft NT no guarding or rigidity Ext: DP2+= no edema Skin: W/D normal turgor Lymph/Heme: No active bleeding or adenopathy Neuro: CN2-12 intact Hospital course: The patient is a 63 year old M with hx as above who presented to the ER with palpitations, lightheadedness and almost passing out, bradycardia in the 20s noted at home. He was taking cardizem, metoprolol, and sotalol for pAfib hx, pt of Dr. Cordova (cardiology). He was admitted to PCU for symptomatic bradycardia. Antiarrhythmics were held. He also had + orthoastatic vitals - this resolved by day of discharge, felt to be medication side effect. His heart rate was stable on the monitor while here, with some PVCs. Echo was obtained, noted as above. Cardiology was consulted. They advised decreasing his metoprolol to 25 bid and lowering the sotalol to 120 bid and following up with his own air analysis engineering technician. The patient was very reluctant to changing his medications. He remained asymptomatic and was discharged home in stable condition. F/u with cardiology x1 week and PCP 1-2 weeks. This patient was seen by Shane Diggs PA-C under the supervision of Doctor Eber. [] Discharge Diet: Low fat/ Low Cholesterol, 1800 Calorie Control Diet, 2000 mg Sodium Diet Discharge Activity: Return to Normal Activity Home Medications: Medications to take at Discharge Glimepiride [Amaryl] 1 mg PO DAILY 02/04/14 Simvastatin [Zocor] 40 mg PO QHS 02/04/14 Magnesium 250 mg PO LUNCH 03/30/14 Aspirin [Aspirin, Baby] 81 mg PO DAILY@0800 #30 tab.chew 04/01/14 Benazepril HCl 40 mg PO DAILY #30 tablet 04/01/14 Diltiazem CD [Cardizem CD] 120 mg PO DAILY #30 capsule 04/01/14 Fish Oil/Dha/Epa [Fish Oil 1,200 mg Fish Oil] 1 each PO QHS 01/13/18 Mag Hydrox/Al Hydrox/Simeth [Mylanta II] 30 ml PO QHS PRN 01/13/18 Nitroglycerin 0.4 mg SL DAILY PRN 01/13/18 Warfarin [Coumadin] 5 mg PO QHS 01/13/18 Metoprolol Tartrate [Lopressor (beta eleonora)] 25 mg PO BID #60 tab 01/15/18 Sotalol HCl [Sotalol] 120 mg PO BID #60 tab 01/15/18 Following Prescrptions Were Given to Patient: Metoprolol Tartrate [Lopressor (beta eleonora)] 25 mg PO BID #60 tab Sotalol HCl [Sotalol] 120 mg PO BID #60 tab Primary Care Physician: Kofi Neumann MD [Primary Care Provider] - Please follow up with your Primary Care Physician in: 1-2 weeks Please Follow Up With: Your own air analysis engineering technician When: 1 week Disposition: Home Minutes spent on discharge:: 35 Patient Condition:: Stable Medical Necessity - Tobacco Use Smoking Status: Former smoker Meaningful Use Info Meaningful Use Diagnoses (Choose all that apply): None applicable <Guillaume Velázquez - Last Filed: 01/15/18 12:40> Discharge Date and Diagnosis - Secondary Discharge Diagnosis Chronic Problems History of back surgery (Chronic) Dilated cardiomyopathy (Chronic) CAD (coronary artery disease) (Chronic) Diabetes mellitus, type II (Chronic) Sleep apnea (Chronic) Sciatica (Chronic) intermittent since his back surgery BPH (benign prostatic hypertrophy) (Chronic) Paroxysmal atrial fibrillation (Chronic) history of anti-reflux surgery (Chronic) Obesity (BMI 30-39.9) (Chronic) HTN (hypertension) (Chronic) GERD (gastroesophageal reflux disease) (Chronic) Hospital Course and Treatment Summary of Care Provided: This patient was seen in conjunction with Shane Diggs PA-C I have independently interviewed and examined the patient and reviewed pertinent historical, laboratory, and other data. Please refer to Shane Diggs PA-C note for details of this patient's presentation, findings, and recommendations. I have reviewed Shane Diggs PA-C note and concur with documented findings. In brief, patient is a 63-year-old gentleman who presented with symptomatic bradycardia. Patient was placed on a monitored bed for subsequent evaluation. Cardiology was consulted as part of patient's management and a 2D acute echo obtained.. Patient was seen and examined on the day of his discharge together with Shane Diggs PA-C Hospital course as elicited above by Shane Diggs Time spent on discharge 45 minutes Code Visit Inpatient E&M: 92272 Disch Hosp
== END 2018-01-15 10:50 | disposition home or self-care (01) ==
LOC: ED 18:19 → PCU 19:40
PROVIDERS: Hospitalist; Internal Medicine; Emergency Provider Emergency Medicine; Family Provider Family Medicine; PCP Family Medicine; Visit Provider Internal Medicine
DX: I95.2 Hypotension due to drugs (principal); R55 Syncope and collapse; I48.0 Paroxysmal atrial fibrillation; I25.10 Atherosclerotic heart disease of native coronary artery without angina pectoris; G47.33 Obstructive sleep apnea (adult) (pediatric); E11.9 Type 2 diabetes mellitus without complications; I10 Essential (primary) hypertension; K21.9 Gastro-esophageal reflux disease without esophagitis; N40.0 Benign prostatic hyperplasia without lower urinary tract symptoms; E66.9 Obesity, unspecified; Z68.35 Body mass index [BMI] 35.0-35.9, adult; Z71.3 Dietary counseling and surveillance; Z95.1 Presence of aortocoronary bypass graft; Z87.891 Personal history of nicotine dependence; I42.0 Dilated cardiomyopathy
CPT/HCPCS: 36415; 71045; 80048; 80061; 82962; 83735; 84484; 85025; 85610; 93005; 93306; 96360; 99218; 99285; J7040; Q9957; A4216; C8929; G0378

== ENCOUNTER → 2018-02-09 11:35 | Outpatient (CLI) | payer MEDICARE, SELFPAY ==
[2018-02-09 13:09] LABS: ALB/GLOB Ratio 1.1 RATIO (0.9-2.4); AST(SGOT) 16 U/L (15-37); Alanine Aminotransfer ALT/SGPT 38 U/L (16-61); Albumin, Serum 3.7 g/dL (3.2-5.0); Alkaline Phosphatase 56 U/L (45-117); Anion Gap 8 (5-15); BUN 14 mg/dL (7-18); BUN/Creat Ratio 13.3 RATIO (10-20); Calcium,Total 8.4 mg/dL (8.5-10.1); Chloride 105 mmol/L (98-107); Cholesterol 131 mg/dL (200); Creatinine, Serum 1.05 mg/dL (0.70-1.30); EST Glomerular Filtration Rate 76 mL/min (>60); Est Glom Filt Rate - Afr Amer 92 mL/min (>60); Globulin 3.5 g/dL (2.2-4.2); Glucose 128 mg/dL (74-106); High Density Lipoprotein 46 mg/dL; PSA,Total - Annual Screen 0.81 ng/mL (0.00-4.00); Potassium 4.1 mmol/L (3.5-5.1); Protein, Total 7.2 g/dL (6.4-8.2); Sodium Level 139 mmol/L (136-145); Triglycerides 152 mg/dL; Very Low Density Lipoprotein 30 mg/dL (5-40)
[2018-02-09 13:10] LABS: Hemoglobin A1c 6.6 % (4.2-6.3)
== END ==
PROVIDERS: Family Provider Family Medicine; PCP Family Medicine; Referring Provider Family Medicine; Visit Provider Family Medicine
DX: E78.2 Mixed hyperlipidemia (principal); E11.9 Type 2 diabetes mellitus without complications; N41.9 Inflammatory disease of prostate, unspecified; Z12.5 Encounter for screening for malignant neoplasm of prostate
CPT/HCPCS: 36415; 80053; 80061; 83036; 84153; G0103

== ENCOUNTER → 2018-05-14 11:20 | Outpatient (CLI) | payer MEDICARE, SELFPAY ==
[2018-01-13 20:05] VITALS: BMI 35.6
[2018-05-14 12:13] LABS: Hemoglobin A1c 7.2 % (4.2-6.3)
[2018-05-14 12:16] LABS: AST(SGOT) 20 U/L (15-37); Alanine Aminotransfer ALT/SGPT 26 U/L (16-61); Albumin, Serum 3.7 g/dL (3.2-5.0); Alkaline Phosphatase 72 U/L (45-117); Anion Gap 6 (5-15); BUN 10 mg/dL (7-18); BUN/Creat Ratio 9.7 RATIO (10-20); Calcium,Total 8.2 mg/dL (8.5-10.1); Chloride 107 mmol/L (98-107); Cholesterol 140 mg/dL (200); Creatinine, Serum 1.03 mg/dL (0.70-1.30); EST Glomerular Filtration Rate 78 mL/min (>60); Est Glom Filt Rate - Afr Amer 94 mL/min (>60); Globulin 3.6 g/dL (2.2-4.2); Glucose 143 mg/dL (74-106); High Density Lipoprotein 46 mg/dL; Potassium 4.2 mmol/L (3.5-5.1); Protein, Total 7.3 g/dL (6.4-8.2); Sodium Level 138 mmol/L (136-145); Triglycerides 147 mg/dL; Very Low Density Lipoprotein 29 mg/dL (5-40)
== END ==
PROVIDERS: Family Provider Family Medicine; PCP Family Medicine; Referring Provider Family Medicine; Visit Provider Family Medicine
DX: I10 Essential (primary) hypertension (principal); E78.2 Mixed hyperlipidemia; E11.9 Type 2 diabetes mellitus without complications
CPT/HCPCS: 36415; 80053; 80061; 83036

== ENCOUNTER → 2018-09-10 | Outpatient (CLI) | payer MEDICARE, SELFPAY ==
[2018-01-13 20:05] VITALS: BMI 35.6
[2018-09-10 11:06] LABS: AST(SGOT) 20 U/L (15-37); Alanine Aminotransfer ALT/SGPT 28 U/L (16-61); Albumin, Serum 3.7 g/dL (3.2-5.0); Alkaline Phosphatase 74 U/L (45-117); Anion Gap 9 (5-15); BUN 9 mg/dL (7-18); BUN/Creat Ratio 8.7 RATIO (10-20); Calcium,Total 8.5 mg/dL (8.5-10.1); Chloride 105 mmol/L (98-107); Cholesterol 127 mg/dL (200); Creatinine, Serum 1.04 mg/dL (0.70-1.30); EST Glomerular Filtration Rate 77 mL/min (>60); Est Glom Filt Rate - Afr Amer 93 mL/min (>60); Globulin 3.7 g/dL (2.2-4.2); Glucose 113 mg/dL (74-106); High Density Lipoprotein 40 mg/dL; Protein, Total 7.4 g/dL (6.4-8.2); Sodium Level 140 mmol/L (136-145); Triglycerides 174 mg/dL; Very Low Density Lipoprotein 35 mg/dL (5-40)
[2018-09-10 11:19] LABS: Hemoglobin A1c 6.8 % (4.2-6.3)
== END | disposition home or self-care (01) ==
PROVIDERS: Family Provider Family Medicine; PCP Family Medicine; Referring Provider Family Medicine; Visit Provider Family Medicine
DX: E11.9 Type 2 diabetes mellitus without complications (principal); E78.2 Mixed hyperlipidemia
CPT/HCPCS: 36415; 80053; 80061; 83036

== ENCOUNTER → 2018-09-28 12:52 | Outpatient (CLI) | payer MEDICARE, SELFPAY ==
--- NOTE | 2018-09-28 12:56 | CDU_ITS ---
Reason For Study: SYNCOPE Rt. Velocities/BP Lt. Velocities/BP Prox CCA 85.6/20.3 cm/sec. Prox CCA 77.2/14.6 cm/sec. Mid CCA 62.5/14.2 cm/sec. Mid CCA 60.0/13.4 cm/sec. Dist CCA 57.3/11.6 cm/sec. Dist CCA 57.6/12.2 cm/sec. Prox ICA 46.4/15.6 cm/sec. Prox ICA 69.9/19.5 cm/sec. Mid ICA 90.8/25.7 cm/sec. Mid ICA 79.7/24.4 cm/sec. Dist ICA 104.3/35.5 cm/sec. Dist ICA 63.7/18.3 cm/sec. Rt. ICA/CCA = 104.3/85.6=1.2. Lt. ICA/CCA = 79.7/77.2=1.0. Prox ECA 95.1/6.4 cm/sec. Prox ECA 162.2/8.6 cm/sec. Rt. Vert. 52.7/10.9 cm/sec. Lt. Vert. 45.3/13.1 cm/sec. Right Extracranial There is intimal thickening but no significant atherosclerotic plaque noted in the right common carotid artery. There is heterogeneous, smooth atherosclerotic plaque noted in the right internal carotid artery. There is intimal thickening but no significant atherosclerotic plaque noted in the right external carotid artery. Antegrade flow is noted in the right vertebral artery. There is heterogeneous, smooth atherosclerotic plaque noted in the right bulb. Left Extracranial There is heterogeneous, irregular atherosclerotic plaque noted in the left common carotid artery. There is heterogeneous, irregular atherosclerotic plaque noted in the left internal carotid artery. There is heterogeneous, irregular atherosclerotic plaque noted in the left external carotid artery. Antegrade flow is noted in the left vertebral artery. There is heterogeneous, irregular atherosclerotic plaque noted in the left bulb. Procedure Carotid Duplex [id number]. Exam performed in department. Interpretation Summary Mild (<50%) stenosis right extracranial internal carotid. Mild (<50%) stenosis left extracranial internal carotid. Flow within the vertebral arteries is antegrade bilaterally. Heterogeneous, atherosclerotic plaque is noted in the carotid bulbs bilaterally, which does not appear to be hemodynamically significant. Ordering Physician: Kofi Neumann Referring Physician: Kofi Neumann Performed By: Deyanira Vega RDCS, RVT
== END ==
PROVIDERS: Family Provider Family Medicine; PCP Family Medicine; Referring Provider Family Medicine; Visit Provider Family Medicine
DX: R55 Syncope and collapse (principal)
CPT/HCPCS: 93880

== ENCOUNTER → 2018-12-05 10:43 | Outpatient (CLI) | payer MEDICARE, SELFPAY ==
[2018-12-05 11:36] LABS: AST(SGOT) 19 U/L (15-37); Alanine Aminotransfer ALT/SGPT 27 U/L (16-61); Albumin, Serum 3.7 g/dL (3.2-5.0); Alkaline Phosphatase 86 U/L (45-117); Anion Gap 3 (5-15); BUN 10 mg/dL (7-18); BUN/Creat Ratio 9.5 RATIO (10-20); Calcium,Total 8.4 mg/dL (8.5-10.1); Chloride 107 mmol/L (98-107); Cholesterol 134 mg/dL (200); Creatinine, Serum 1.05 mg/dL (0.70-1.30); EST Glomerular Filtration Rate 76 mL/min (>60); Est Glom Filt Rate - Afr Amer 92 mL/min (>60); Globulin 3.8 g/dL (2.2-4.2); Glucose 132 mg/dL (74-106); High Density Lipoprotein 38 mg/dL; Potassium 3.9 mmol/L (3.5-5.1); Protein, Total 7.5 g/dL (6.4-8.2); Sodium Level 138 mmol/L (136-145); Triglycerides 168 mg/dL; Very Low Density Lipoprotein 34 mg/dL (5-40)
[2018-12-05 11:42] LABS: Hemoglobin A1c 6.9 % (4.2-6.3)
== END ==
PROVIDERS: Family Provider Family Medicine; PCP Family Medicine; Referring Provider Family Medicine; Visit Provider Family Medicine
DX: E11.9 Type 2 diabetes mellitus without complications (principal); E78.2 Mixed hyperlipidemia; Z12.5 Encounter for screening for malignant neoplasm of prostate
CPT/HCPCS: 36415; 80053; 80061; 83036

== ENCOUNTER 2019-02-07 11:03 | Emergency (ER) | payer MEDICARE, SELFPAY ==
[2019-02-07 11:04] VITALS: BP 170/93; PULSE 82; RESP 20; TEMP 36.6; O2SAT 96; BMI 35.9
[2019-02-07 11:51] LABS: Mucous, Urine 0 SEEN /hpf (<or=2+)
[2019-02-07] MEDS: 0.9% Normal Saline 1,000 ML 150 ML IV (11:56)
[2019-02-07 11:58] LABS: Color, Urine Red (Yellow); Glucose, Dipstick Normal (Normal); Ketone-Dipstick 5 mg/dl (Negative); Leukocyte Esterase-Dipstick 25 /ul (Negative); Nitrite-Dipstick Negative (Negative); Occult Blood-Urine 250 /ul (Negative); Protein-Dipstick 500 mg/dl (Negative); Urine Bilirubin Dipstick Negative (Negative); Urine Clarity Turbid (Clear); Urine Urobilinogen Normal (Normal)
[2019-02-07 12:07] LABS: Bacteria 1+ /hpf (None Seen); Red Blood Cells-Urine > 100 SEEN /hpf (0-5); Squamous Epithelial Cells - UA 0-5 SEEN /hpf (0-5); White Blood Cells 0-5 SEEN /hpf (0-5)
[2019-02-07 12:16] LABS: Absolute Lymphocyte Count 1.31 X10^3/uL (0.83-4.51); Absolute Neutrophil Count 7.6 X10^3/uL (2.0-7.7); Basophil# 0.07 X10^3/uL; Basophil% 0.7 % (0-1); Eosinophil# 0.22 X10^3/uL; Eosinophils% 2.1 % (0-5); Hematocrit 47.7 % (40-54); Hemoglobin 15.9 g/dL (13.0-16.5); Lymphocyte # 1.31 X10^3/ul (4.0); Lymphocyte % 12.6 % (19-41); Mean Corp Hgb Conc 33.3 g/dL (32-36); Mean Corpuscular Hgb 28.4 pg (27.0-32.0); Mean Corpuscular Volume 85.2 fL (80-94); Mean Platelet Vol. 10.3 fl (6.2-12.0); Monocyte# 1.04 X10^3/uL; NRBC Flagged by Analyzer 0 % (0-5); Neutrophil # 7.58 X10^3/uL (2.7-7.7); Neutrophil % 72.6 % (47-70); Platelet Count 267 K/mm3 (150-450); RBC Distribution Width CV 12.3 % (11.6-14.6); RBC Distribution Width SD 37.9 fl (35.1-43.9); White Blood Count 10.4 K/mm3 (4.4-11.0)
[2019-02-07 12:21] LABS: International Normalized Ratio 2.7; Prothrombin Time (Protime)PT. 28.4 SECONDS (11.7-14.9)
[2019-02-07 12:28] LABS: Anion Gap 5 (5-15); BUN 8 mg/dL (7-18); BUN/Creat Ratio 7.6 RATIO (10-20); Chloride 104 mmol/L (98-107); Creatinine, Serum 1.05 mg/dL (0.70-1.30); EST Glomerular Filtration Rate 76 mL/min (>60); Est Glom Filt Rate - Afr Amer 92 mL/min (>60); Estimated Creatinine Clearance 79.04 ml/min; Glucose 155 mg/dL (74-106); Potassium 4.3 mmol/L (3.5-5.1); Sodium Level 137 mmol/L (136-145)
--- NOTE | 2019-02-07 13:29 | CT_ITS ---
STUDY: CT ABDOMEN AND PELVIS WITHOUT CONTRAST REASON FOR EXAM: Male, 64 years old. Hematuria. The patient is on Coumadin. RADIATION DOSAGE (If Supplied By Facility): CTDIvol = ( 14.80 ) mGy, DLP = ( 763.05 ) mGycm TECHNIQUE: Transaxial images were obtained from the dome of the diaphragm to the symphysis pubis without oral contrast, and without intravenous contrast. Sagittal and coronal images were reconstructed. Individualized dose optimization techniques were used for this CT. COMPARISON: None. FINDINGS: Right basilar infiltration and/or atelectasis superimposed on scarring. Calcified pleural plaques at the right lung base. Coronary artery calcification. Normal liver. Normal gallbladder and extrahepatic biliary system. Normal spleen. Normal pancreas. Normal bilateral adrenal glands. Normal right kidney. Normal left kidney. There is a small hiatal hernia. Normal small intestine. There are multiple colonic diverticula consistent with diverticulosis. The appendix is visualized and appears normal. There is scattered atherosclerotic calcification of the abdominal aorta and the major visceral branches, without a demonstrated aneurysm. Normal inferior vena cava. Normal retroperitoneum. A Cruz catheter is seen within the urinary bladder. The urinary bladder is empty. There is diffuse wall thickening of the urinary bladder with increased markings in the surrounding fat. Cystitis should BE ruled out. There is a small umbilical hernia containing fat. There are diffuse degenerative changes of the visualized lumbar spine. CT/Abdomen/Pelvis without Cont IMPRESSION: Right basilar infiltration and/or atelectasis with superimposed calcified pleural plaques. Diffusely thickened bladder wall. Cystitis should BE ruled out. Electronically Signed: Sarthak Zepeda, at 14:13 EDT , Service support ,
[2019-02-07 14:09] VITALS: BP 162/74; PULSE 62; RESP 18; O2SAT 97
--- NOTE | 2019-02-07 15:00 | ED.VISSUMM ---
- ER Visit Summary Date of Service: 02/07/19 Chief Complaint: [Hematuria] History of Present Illness: The patient is a 64 M [presents the emergency department complaint of blood in the urine that started this morning. Patient states that he was up all night urinating last night and felt to jugs with urine.] Patient states that he only noticed the blood in the urine this morning. Patient states he passed some clots. He denies any fever chills or sweats. He has never had hematuria before. Patient is on Coumadin for history of A. fib. Patient also has history of coronary artery disease, diabetes, hypertension, BPH, and obstructive sleep apnea. States that he also has a replaced aortic valve that was replaced with a pig valve. Physical Examination: [HEENT-PERRLA, EOMI. Cranial nerves II through XII grossly intact. TMs clear. Mucous membranes moist. No adenopathy. Cardiovascular-regular rate and rhythm without murmur or ectopy Lungs-clear to auscultation, chest wall stable without crepitus or subcu emphysema Abdomen-normoactive bowel sounds, soft, nontender, no rebound or rigidity, no peritoneal signs. Extremities-intact ?4, normal range of motion, normal pulses, atraumatic] Test Results: [CBC with differential obtained for white count 10.4, hemoglobin 16, hematocrit to 67. Chemistries unremarkable. INR was 2.7. Urinalysis showed 25 leukocyte esterase as well as greater than 100 RBCs and +1 bacteria.] CT scan of the abdomen pelvis without contrast obtained showed diffuse thickening of the bladder wall with some inflammatory changes surrounding the bladder recommended ruling out cystitis clinically. Emergency Department Course and Treatment: [Culture was sent. Patient given Keflex 500 mg p.o. Patient had a Cruz catheter placed and bladder was irrigated. The urine mostly clear but continued to have a pink tinge. Case was discussed with patient's urologist who asked that we discontinue the Cruz catheter as well as discontinue the aspirin and Coumadin for the next 3 days.] Treatment Plan: [Patient will be treated with Keflex and Pyridium. Patient will be referred to urology for follow-up.] Disposition: [Discharged home in stable condition.] Impression: [Hematuria Cystitis] This note was generated with [employer]ivalent DATAation software. It may contain incorrect words, spelling, and punctuation that were not noted in review of the chart prior to signing ED Disposition - Plan for ED Patient: Referrals: Kofi Neumann MD [Primary Care Provider] -
--- NOTE | 2019-02-07 15:06 | ED.DEP ---
ED Disposition - Plan for ED Patient: Instructions: Bladder Infection, Male (Adult), Hematuria Prescriptions: Cephalexin [Keflex] 500 mg PO Q6 #40 cap Prescription Printed Phenazopyridine HCl [Pyridium] 200 mg PO BID PRN PRN #10 tab PRN Reason: Pain Prescription Printed Referrals: Kofi Neumann MD [Primary Care Provider] - Tee Weaver MD [STAFF PHYSICIAN] - 3-5 Days
[2019-02-07] MEDS: Phenazopyridine 95 MG Tablet 190 MG PO (15:27)
[2019-02-07] MEDS: Cephalexin 250 MG Capsule 500 MG PO (15:27)
[2019-02-07 15:28] VITALS: RESP 18
== END 2019-02-07 15:29 | disposition home or self-care (01) ==
LOC: ED 11:51
PROVIDERS: Emergency Provider Emergency Medicine; Family Provider Family Medicine; PCP Family Medicine
DX: N30.91 Cystitis, unspecified with hematuria (principal); I25.10 Atherosclerotic heart disease of native coronary artery without angina pectoris; I48.91 Unspecified atrial fibrillation; I10 Essential (primary) hypertension; E11.9 Type 2 diabetes mellitus without complications; N40.0 Benign prostatic hyperplasia without lower urinary tract symptoms; Z79.01 Long term (current) use of anticoagulants; Z79.82 Long term (current) use of aspirin; Z79.84 Long term (current) use of oral hypoglycemic drugs; Z79.899 Other long term (current) drug therapy; Z87.891 Personal history of nicotine dependence
CPT/HCPCS: 51702; 74176; 80048; 81001; 85025; 85610; 87086; 96360; 96361; 99285; J7030; A4216

== ENCOUNTER → 2019-02-28 10:54 | Outpatient (CLI) | payer MEDICARE, SELFPAY ==
[2019-02-07 11:04] VITALS: BMI 35.9
[2019-02-28 12:59] LABS: Hemoglobin A1c 6.8 % (4.2-6.3)
[2019-02-28 13:24] LABS: AST(SGOT) 20 U/L (15-37); Alanine Aminotransfer ALT/SGPT 27 U/L (16-61); Albumin, Serum 3.7 g/dL (3.2-5.0); Alkaline Phosphatase 77 U/L (45-117); Anion Gap 9 (5-15); BUN 9 mg/dL (7-18); BUN/Creat Ratio 7.9 RATIO (10-20); Calcium,Total 8.2 mg/dL (8.5-10.1); Chloride 104 mmol/L (98-107); Cholesterol 131 mg/dL (200); Creatinine, Serum 1.14 mg/dL (0.70-1.30); EST Glomerular Filtration Rate 69 mL/min (>60); Est Glom Filt Rate - Afr Amer 83 mL/min (>60); Globulin 3.7 g/dL (2.2-4.2); Glucose 147 mg/dL (74-106); High Density Lipoprotein 36 mg/dL; PSA,Total - Annual Screen 1.17 ng/mL (0.00-4.00); Protein, Total 7.4 g/dL (6.4-8.2); Sodium Level 138 mmol/L (136-145); Triglycerides 178 mg/dL; Very Low Density Lipoprotein 36 mg/dL (5-40)
== END ==
PROVIDERS: Family Provider Family Medicine; PCP Family Medicine; Referring Provider Family Medicine; Visit Provider Family Medicine
DX: E78.2 Mixed hyperlipidemia (principal); E11.9 Type 2 diabetes mellitus without complications; Z12.5 Encounter for screening for malignant neoplasm of prostate
CPT/HCPCS: 36415; 80053; 80061; 83036; 84153; G0103

== ENCOUNTER → 2019-06-06 10:59 | Outpatient (CLI) | payer MEDICARE, SELFPAY ==
[2019-06-06 11:57] LABS: Hematocrit 47.2 % (40-54); Hemoglobin 16.2 g/dL (13.0-16.5); Mean Corp Hgb Conc 34.3 g/dL (32-36); Mean Corpuscular Hgb 28.8 pg (27.0-32.0); Mean Platelet Vol. 10.6 fl (6.2-12.0); Platelet Count 285 K/mm3 (150-450); RBC Distribution Width CV 12.6 % (11.6-14.6); RBC Distribution Width SD 38.4 fl (35.1-43.9); Red Blood Count 5.62 M/mm3 (4.6-6.2); White Blood Count 8.9 K/mm3 (4.4-11.0)
[2019-06-06 12:07] LABS: Hemoglobin A1c 7.2 % (4.2-6.3)
[2019-06-06 12:12] LABS: ALB/GLOB Ratio 0.9 RATIO (0.9-2.4); AST(SGOT) 23 U/L (15-37); Alanine Aminotransfer ALT/SGPT 30 U/L (16-61); Albumin, Serum 3.8 g/dL (3.2-5.0); Alkaline Phosphatase 84 U/L (45-117); Anion Gap 4 (5-15); BUN 8 mg/dL (7-18); BUN/Creat Ratio 7.1 RATIO (10-20); Calcium,Total 8.7 mg/dL (8.5-10.1); Chloride 104 mmol/L (98-107); Cholesterol 124 mg/dL (200); Creatinine, Serum 1.12 mg/dL (0.70-1.30); EST Glomerular Filtration Rate 70 mL/min (>60); Est Glom Filt Rate - Afr Amer 85 mL/min (>60); Globulin 4.1 g/dL (2.2-4.2); Glucose 154 mg/dL (74-106); High Density Lipoprotein 38 mg/dL; Protein, Total 7.9 g/dL (6.4-8.2); Sodium Level 136 mmol/L (136-145); Triglycerides 156 mg/dL; Very Low Density Lipoprotein 31 mg/dL (5-40)
== END ==
PROVIDERS: PCP Family Medicine; Referring Provider Family Medicine; Visit Provider Family Medicine
DX: N40.0 Benign prostatic hyperplasia without lower urinary tract symptoms (principal); I10 Essential (primary) hypertension; I25.10 Atherosclerotic heart disease of native coronary artery without angina pectoris; E11.9 Type 2 diabetes mellitus without complications; E78.2 Mixed hyperlipidemia; Z12.5 Encounter for screening for malignant neoplasm of prostate
CPT/HCPCS: 36415; 80053; 80061; 83036; 85027

== ENCOUNTER → 2019-09-05 10:56 | Outpatient (CLI) | payer MEDICARE, SELFPAY ==
[2019-09-05 12:13] LABS: ALB/GLOB Ratio 0.9 RATIO (0.9-2.4); AST(SGOT) 20 U/L (15-37); Alanine Aminotransfer ALT/SGPT 24 U/L (16-61); Albumin, Serum 3.5 g/dL (3.2-5.0); Alkaline Phosphatase 79 U/L (45-117); Anion Gap 4 (5-15); BUN 9 mg/dL (7-18); BUN/Creat Ratio 8.9 RATIO (10-20); Calcium,Total 8.6 mg/dL (8.5-10.1); Chloride 105 mmol/L (98-107); Cholesterol 122 mg/dL (200); Creatinine, Serum 1.01 mg/dL (0.70-1.30); EST Glomerular Filtration Rate 79 mL/min (>60); Est Glom Filt Rate - Afr Amer 96 mL/min (>60); Globulin 4.1 g/dL (2.2-4.2); Glucose 169 mg/dL (74-106); High Density Lipoprotein 35 mg/dL; Potassium 4.1 mmol/L (3.5-5.1); Protein, Total 7.6 g/dL (6.4-8.2); Sodium Level 136 mmol/L (136-145); Triglycerides 165 mg/dL; Very Low Density Lipoprotein 33 mg/dL (5-40)
== END ==
PROVIDERS: PCP Family Medicine; Referring Provider Family Medicine; Visit Provider Family Medicine
DX: I42.0 Dilated cardiomyopathy (principal); E11.9 Type 2 diabetes mellitus without complications; I48.91 Unspecified atrial fibrillation; I35.1 Nonrheumatic aortic (valve) insufficiency
CPT/HCPCS: 36415; 80053; 80061; 83036

== ENCOUNTER → 2019-12-05 11:32 | Outpatient (CLI) | payer MEDICARE, SELFPAY ==
[2019-12-05 12:16] LABS: Hemoglobin A1c 7.3 % (3.8-5.6)
[2019-12-05 12:19] LABS: ALB/GLOB Ratio 0.9 RATIO (0.9-2.4); AST(SGOT) 17 U/L (15-37); Alanine Aminotransfer ALT/SGPT 25 U/L (16-61); Albumin, Serum 3.6 g/dL (3.2-5.0); Alkaline Phosphatase 81 U/L (45-117); Anion Gap 6 (5-15); BUN 10 mg/dL (7-18); BUN/Creat Ratio 9.9 RATIO (10-20); Calcium,Total 8.5 mg/dL (8.5-10.1); Chloride 104 mmol/L (98-107); Cholesterol 128 mg/dL (200); Creatinine, Serum 1.01 mg/dL (0.70-1.30); EST Glomerular Filtration Rate 79 mL/min (>60); Est Glom Filt Rate - Afr Amer 96 mL/min (>60); Globulin 4.2 g/dL (2.2-4.2); Glucose 150 mg/dL (74-106); High Density Lipoprotein 37 mg/dL; Potassium 3.9 mmol/L (3.5-5.1); Protein, Total 7.8 g/dL (6.4-8.2); Sodium Level 138 mmol/L (136-145); Triglycerides 148 mg/dL; Very Low Density Lipoprotein 30 mg/dL (5-40)
== END ==
PROVIDERS: PCP Family Medicine; Referring Provider Family Medicine; Visit Provider Family Medicine
DX: I48.91 Unspecified atrial fibrillation (principal); I35.1 Nonrheumatic aortic (valve) insufficiency; N40.0 Benign prostatic hyperplasia without lower urinary tract symptoms; I10 Essential (primary) hypertension; E11.9 Type 2 diabetes mellitus without complications
CPT/HCPCS: 36415; 80053; 80061; 83036

== ENCOUNTER → 2020-03-03 11:23 | Outpatient (CLI) | payer MEDICARE, SELFPAY ==
[2020-03-03 12:57] LABS: ALB/GLOB Ratio 0.9 RATIO (0.9-2.4); AST(SGOT) 15 U/L (15-37); Alanine Aminotransfer ALT/SGPT 23 U/L (16-61); Albumin, Serum 3.6 g/dL (3.2-5.0); Alkaline Phosphatase 87 U/L (45-117); Anion Gap 3 (5-15); BUN 7 mg/dL (7-18); BUN/Creat Ratio 6.7 RATIO (10-20); Calcium,Total 8.5 mg/dL (8.5-10.1); Chloride 105 mmol/L (98-107); Cholesterol 126 mg/dL (200); Creatinine, Serum 1.05 mg/dL (0.70-1.30); EST Glomerular Filtration Rate 76 mL/min (>60); Est Glom Filt Rate - Afr Amer 91 mL/min (>60); Globulin 4.2 g/dL (2.2-4.2); Glucose 135 mg/dL (74-106); Hemoglobin A1c 6.8 % (3.8-5.6); High Density Lipoprotein 39 mg/dL; PSA,Total - Annual Screen 1.06 ng/mL (0.00-4.00); Potassium 3.8 mmol/L (3.5-5.1); Protein, Total 7.8 g/dL (6.4-8.2); Sodium Level 138 mmol/L (136-145); Triglycerides 145 mg/dL; Very Low Density Lipoprotein 29 mg/dL (5-40)
== END ==
PROVIDERS: PCP Family Medicine; Referring Provider Family Medicine; Visit Provider Family Medicine
DX: I10 Essential (primary) hypertension (principal); N40.0 Benign prostatic hyperplasia without lower urinary tract symptoms; I48.91 Unspecified atrial fibrillation; I35.1 Nonrheumatic aortic (valve) insufficiency; E11.9 Type 2 diabetes mellitus without complications; Z12.5 Encounter for screening for malignant neoplasm of prostate
CPT/HCPCS: 36415; 80053; 80061; 83036; 84153; G0103

== ENCOUNTER → 2020-09-02 11:25 | Outpatient (CLI) | payer MEDICARE, SELFPAY ==
[2020-09-02 12:33] LABS: AST(SGOT) 19 U/L (15-37); Alanine Aminotransfer ALT/SGPT 22 U/L (16-61); Albumin, Serum 3.7 g/dL (3.2-5.0); Alkaline Phosphatase 75 U/L (45-117); Anion Gap 3 (5-15); BUN 8 mg/dL (7-18); BUN/Creat Ratio 7.4 RATIO (10-20); Calcium,Total 8.6 mg/dL (8.5-10.1); Chloride 106 mmol/L (98-107); Cholesterol 126 mg/dL (200); Creatinine, Serum 1.08 mg/dL (0.70-1.30); EST Glomerular Filtration Rate 73 mL/min (>60); Est Glom Filt Rate - Afr Amer 88 mL/min (>60); Globulin 3.6 g/dL (2.2-4.2); Glucose 181 mg/dL (74-106); High Density Lipoprotein 42 mg/dL; Potassium 4.2 mmol/L (3.5-5.1); Protein, Total 7.3 g/dL (6.4-8.2); Sodium Level 136 mmol/L (136-145); Triglycerides 136 mg/dL; Very Low Density Lipoprotein 27 mg/dL (5-40)
[2020-09-02 13:15] LABS: Hemoglobin A1c 7.1 % (3.8-5.6)
== END ==
PROVIDERS: PCP Family Medicine; Referring Provider Family Medicine; Visit Provider Family Medicine
DX: E11.9 Type 2 diabetes mellitus without complications (principal); I25.10 Atherosclerotic heart disease of native coronary artery without angina pectoris; F41.1 Generalized anxiety disorder; I10 Essential (primary) hypertension; I48.91 Unspecified atrial fibrillation
CPT/HCPCS: 36415; 80053; 80061; 83036

== ENCOUNTER → 2020-12-23 11:10 | Outpatient (CLI) | payer MEDICARE, SELFPAY ==
[2020-12-23 13:56] LABS: AST(SGOT) 19 U/L (15-37); Alanine Aminotransfer ALT/SGPT 25 U/L (16-61); Albumin, Serum 3.6 g/dL (3.2-5.0); Alkaline Phosphatase 67 U/L (45-117); Anion Gap 7 (5-15); BUN 9 mg/dL (7-18); BUN/Creat Ratio 9.2 RATIO (10-20); Calcium,Total 8.8 mg/dL (8.5-10.1); Chloride 104 mmol/L (98-107); Cholesterol 127 mg/dL (200); Creatinine, Serum 0.98 mg/dL (0.70-1.30); EST Glomerular Filtration Rate 82 mL/min (>60); Est Glom Filt Rate - Afr Amer 99 mL/min (>60); Globulin 3.7 g/dL (2.2-4.2); Glucose 160 mg/dL (74-106); High Density Lipoprotein 39 mg/dL; Potassium 4.1 mmol/L (3.5-5.1); Protein, Total 7.3 g/dL (6.4-8.2); Sodium Level 137 mmol/L (136-145); Triglycerides 133 mg/dL; Uric Acid 6.6 mg/dL (3.5-7.2); Very Low Density Lipoprotein 27 mg/dL (5-40)
== END ==
PROVIDERS: PCP Family Medicine; Visit Provider Family Medicine
DX: I48.91 Unspecified atrial fibrillation (principal); I10 Essential (primary) hypertension; E11.9 Type 2 diabetes mellitus without complications; E78.2 Mixed hyperlipidemia; G47.33 Obstructive sleep apnea (adult) (pediatric)
CPT/HCPCS: 36415; 80053; 80061; 83036; 84550

== ENCOUNTER 2021-04-19 12:01 | Outpatient (CLI) | payer MEDICARE, SELFPAY ==
[2021-04-19 12:04] LABS: Bacteria 0 SEEN /hpf (None Seen); Mucous, Urine 0 SEEN /hpf (<or=2+); Red Blood Cells-Urine 0 SEEN /hpf (0-5); Squamous Epithelial Cells - UA 0 SEEN /hpf (0-5); White Blood Cells 0 SEEN /hpf (0-5)
[2021-04-19 15:21] LABS: Absolute Lymphocyte Count 1.27 X10^3/uL (0.83-4.51); Absolute Neutrophil Count 5.1 X10^3/uL (2.0-7.7); Basophil# 0.07 X10^3/uL; Basophil% 0.9 % (0-1); Eosinophil# 0.16 X10^3/uL; Eosinophils% 2.2 % (0-5); Hematocrit 45.9 % (40-54); Hemoglobin 15.1 g/dL (13.0-16.5); Lymphocyte # 1.27 X10^3/ul (0.83-4.51); Lymphocyte % 17.1 % (19-41); Mean Corp Hgb Conc 32.9 g/dL (32-36); Mean Corpuscular Hgb 28.4 pg (27.0-32.0); Mean Corpuscular Volume 86.4 fL (80-94); Mean Platelet Vol. 11.1 fl (6.2-12.0); Monocyte% 10.8 % (0-10); NRBC Flagged by Analyzer 0 % (0-5); Neutrophil # 5.08 X10^3/uL (2.7-7.7); Neutrophil % 68.6 % (47-70); Platelet Count 314 K/mm3 (150-450); RBC Distribution Width CV 12.7 % (11.6-14.6); RBC Distribution Width SD 39.4 fl (35.1-43.9); Red Blood Count 5.31 M/mm3 (4.6-6.2); White Blood Count 7.4 K/mm3 (4.4-11.0)
[2021-04-19 15:29] LABS: International Normalized Ratio 2.2; Prothrombin Time (Protime)PT. 23.4 SECONDS (11.7-14.9)
[2021-04-19 15:47] LABS: Hemoglobin A1c 6.9 % (3.8-5.6); Vitamin B12 545 pg/mL (211-911); Vitamin D,25 Hydroxy 18.5 ng/mL
[2021-04-19 15:55] LABS: Color, Urine Yellow (Yellow); Glucose, Dipstick Normal (Normal); Ketone-Dipstick Negative (Negative); Leukocyte Esterase-Dipstick Negative /ul (Negative); Nitrite-Dipstick Negative (Negative); Occult Blood-Urine 10 /ul (Negative); Protein-Dipstick Negative (Negative); Urine Bilirubin Dipstick Negative (Negative); Urine Clarity Clear (Clear); Urine Urobilinogen Normal (Normal); Urine pH 6.5 (5.0 - 8.0)
[2021-04-19 16:00] LABS: ALB/GLOB Ratio 0.9 RATIO (0.9-2.4); AST(SGOT) 17 U/L (15-37); Alanine Aminotransfer ALT/SGPT 29 U/L (16-61); Albumin, Serum 3.6 g/dL (3.2-5.0); Alkaline Phosphatase 71 U/L (45-117); Anion Gap 8 (5-15); BUN 10 mg/dL (7-18); BUN/Creat Ratio 10.6 RATIO (10-20); Calcium,Total 8.9 mg/dL (8.5-10.1); Chloride 104 mmol/L (98-107); Cholesterol 131 mg/dL (200); Creatinine, Serum 0.94 mg/dL (0.70-1.30); EST Glomerular Filtration Rate 86 mL/min (>60); Est Glom Filt Rate - Afr Amer 104 mL/min (>60); Globulin 3.9 g/dL (2.2-4.2); Glucose 162 mg/dL (74-106); High Density Lipoprotein 38 mg/dL; Magnesium 2.4 mg/dL (1.6-2.6); Potassium 4.1 mmol/L (3.5-5.1); Protein, Total 7.5 g/dL (6.4-8.2); Sodium Level 137 mmol/L (136-145); Thyroid Stim Hormone (TSH) 0.95 uIU/mL (0.358-3.74); Triglycerides 158 mg/dL; Very Low Density Lipoprotein 32 mg/dL (5-40)
[2021-04-19 16:02] LABS: Microalbumin,Random Urine 9.5 mg/L (NO RANGE EST.); Microalbumin:Creatinine Ratio 6.8 mg/g CRE (<30 mg/g CRE)
== END 2021-04-19 23:59 | disposition short-term general hospital (02) ==
LOC: MFPLAB 12:02
PROVIDERS: PCP Family Medicine; Visit Provider Family Medicine
DX: I48.91 Unspecified atrial fibrillation (principal); E11.59 Type 2 diabetes mellitus with other circulatory complications; R53.83 Other fatigue
CPT/HCPCS: 36415; 80053; 80061; 81001; 82043; 82306; 82570; 82607; 83036; 83735; 84443; 85025; 85610

== ENCOUNTER 2021-05-05 13:48 | Outpatient (CLI) | payer MEDICARE, SELFPAY ==
--- NOTE | 2021-05-05 13:53 | ART_ITS ---
Reason For Study: Other specified symptoms and signs involving the circulatory and respiratory symstems Procedure A bilateral lower extremity continuous wave Doppler with analog waveform analysis and ankle brachial indexes. Unable to exercise patient do to noncompressible vessels. Left Segmental Pressures Left brachial= 133mmHg. Left posterior tibial artery = >254mmHg. Left dorsalis pedis artery = >254mmHg. Left digit = 156 mmHg. The left dorsalis pedis waveforms are triphasic. The left posterior tibial artery waveforms are triphasic. Right Segmental Pressures Right brachial= 136mmHg. Right posterior tibial artery = >254mmHg. Right dorsalis pedis artery = >254mmHg. Right digit = 143 mmHg. The right dorsalis pedis waveforms are triphasic. The right posterior tibial artery waveforms are triphasic. Indices The right ankle brachial index by the dorsalis pedis is NC. The right ankle brachial index by the posterior tibial artery is NC. The right digital-brachial index is 1.05. The left ankle brachial index by the dorsalis pedis is NC. The left ankle brachial index by the posterior tibial artery is NC. The left digital-brachial index is 1.15. VL/Ankle Brachial Index Interpretation Summary Triphasic Doppler waveforms are noted at ankle level bilaterally. Pulse-volume recordings appear satisfactory at ankle and digital levels bilaterally. Resting ankle-brachial in dices could not be determined on either side due to the non-compressibility of the vasculature at ankle level bilaterally. Digital-brachial indices are normal bilaterally. There is evidence of arterial calcification at ankle level bilaterally. There i s no evidence of significant arterial occlusive disease in the lower extremities bilaterally. Ordering Physician: Zia Juárez Referring Physician: Zia Juárez Performed By: Sadaf Collazo RVT
== END 2021-05-05 23:59 | disposition short-term general hospital (02) ==
PROVIDERS: PCP Family Medicine; Referring Provider Family Medicine; Visit Provider Family Medicine
DX: R09.89 Other specified symptoms and signs involving the circulatory and respiratory systems (principal)
CPT/HCPCS: 93922

== ENCOUNTER 2021-05-11 10:28 | Outpatient (CLI) | payer MEDICARE, SELFPAY ==
[2021-05-11 11:56] LABS: AST(SGOT) 17 U/L (15-37); Alanine Aminotransfer ALT/SGPT 29 U/L (16-61); Albumin, Serum 3.6 g/dL (3.2-5.0); Alkaline Phosphatase 69 U/L (45-117); Bilirubin, Direct 0.21 mg/dL (0.00-0.30); Globulin 3.7 g/dL (2.2-4.2); Protein, Total 7.3 g/dL (6.4-8.2)
== END 2021-05-11 23:59 | disposition short-term general hospital (02) ==
LOC: LAB 10:30
PROVIDERS: PCP Family Medicine; Referring Provider Family Medicine; Visit Provider Family Medicine
DX: R17 Unspecified jaundice (principal)
CPT/HCPCS: 36415; 80076

== ENCOUNTER → 2021-06-17 15:37 | Outpatient (CLI) | payer MEDICARE, SELFPAY ==
[2021-06-17 16:43] LABS: Uric Acid 5.6 mg/dL (3.5-7.2)
[2021-07-07 11:09] LABS: Aldosterone, Serum 2.6 ng/dL (0.0-30.0)
[2021-07-07 13:58] LABS: Renin, Plasma < 0.167 ng/mL/hr (0.167-5.380)
== END ==
PROVIDERS: PCP Family Medicine; Referring Provider Nurse Practitioner Family; Visit Provider Nurse Practitioner Family
DX: I10 Essential (primary) hypertension (principal)
CPT/HCPCS: 36415; 82088; 84244; 84550

== ENCOUNTER → 2021-08-09 | Outpatient (CLI) | payer MEDICARE, SELFPAY ==
[2021-08-09 12:12] LABS: Hemoglobin A1c 7.5 % (3.8-5.6)
[2021-08-09 12:33] LABS: AST(SGOT) 22 U/L (15-37); Alanine Aminotransfer ALT/SGPT 31 U/L (16-61); Albumin, Serum 3.6 g/dL (3.2-5.0); Alkaline Phosphatase 64 U/L (45-117); Anion Gap 6 (5-15); BUN 10 mg/dL (7-18); BUN/Creat Ratio 10.1 RATIO (10-20); Calcium,Total 8.2 mg/dL (8.5-10.1); Chloride 103 mmol/L (98-107); Cholesterol 125 mg/dL (200); Creatinine, Serum 0.99 mg/dL (0.70-1.30); EST Glomerular Filtration Rate 81 mL/min (>60); Est Glom Filt Rate - Afr Amer 97 mL/min (>60); Globulin 3.5 g/dL (2.2-4.2); Glucose 154 mg/dL (74-106); High Density Lipoprotein 38 mg/dL; Potassium 3.9 mmol/L (3.5-5.1); Protein, Total 7.1 g/dL (6.4-8.2); Sodium Level 136 mmol/L (136-145); Triglycerides 168 mg/dL; Very Low Density Lipoprotein 34 mg/dL (5-40)
[2021-08-09 12:34] LABS: Vitamin D,25 Hydroxy 46.1 ng/mL
== END | disposition home or self-care (01) ==
LOC: LAB 11:22
PROVIDERS: PCP Family Medicine; Visit Provider Family Medicine
DX: E55.9 Vitamin D deficiency, unspecified (principal); E11.9 Type 2 diabetes mellitus without complications
CPT/HCPCS: 36415; 80053; 80061; 82306; 83036

== ENCOUNTER → 2021-09-13 | Outpatient (CLI) | payer MEDICARE, SELFPAY ==
--- NOTE | 2021-09-13 12:55 | CDU_ITS ---
Reason For Study: carotid stenosis Rt. Velocities/BP Lt. Velocities/BP Prox CCA 68.2/9.5 cm/sec. Prox CCA 73.4/14.7 cm/sec. Mid CCA 64.3/13.4 cm/sec. Mid CCA 69.5/13.4 cm/sec. Dist CCA 66.9/12.1 cm/sec. Dist CCA 61.7/13.4 cm/sec. Prox ICA 64.9/11.8 cm/sec. Prox ICA 67.9/18.8 cm/sec. Mid ICA 57.8/17.3 cm/sec. Mid ICA 82.7/22.5 cm/sec. Dist ICA 72.1/22.6 cm/sec. Dist ICA 90.0/22.5 cm/sec. Rt. ICA/CCA = 1.1. Lt. ICA/CCA = 1.3. Prox ECA 113.0/13.0 cm/sec. Prox ECA 197.6/21.5 cm/sec. Rt. Vert. 48.6/9.5 cm/sec. Lt. Vert. 43.4/15.1 cm/sec. Right Extracranial There is homogeneous, smooth atherosclerotic plaque noted in the right common carotid artery. There is heterogeneous, irregular atherosclerotic plaque noted in the right internal carotid artery. There is heterogeneous, irregular atherosclerotic plaque noted in the right external carotid artery. Antegrade flow is noted in the right vertebral artery. Left Extracranial There is heterogeneous, irregular atherosclerotic plaque noted in the left common carotid artery. There is heterogeneous, irregular atherosclerotic plaque noted in the left internal carotid artery. There is heterogeneous, irregular atherosclerotic plaque noted in the left external carotid artery. Antegrade flow is noted in the left vertebral artery. Procedure Carotid Duplex [id number]. This is a Carotid Duplex examination using B-mode, color flow and specral Doppler. The exam was diagnostic. Exam performed in department. VL/Carotid Duplex Ultrasound Interpretation Summary Mild (<50%) stenosis right extracranial internal carotid. Mild (<50%) stenosis left extracranial internal carotid. Flow within the vertebral arteries is antegrade bilaterally. Ordering Physician: Zia Juárez Performed By: Jono Arita RVT
== END | disposition home or self-care (01) ==
PROVIDERS: PCP Family Medicine; Referring Provider Family Medicine; Visit Provider Family Medicine
DX: I65.23 Occlusion and stenosis of bilateral carotid arteries (principal)
CPT/HCPCS: 93880

== ENCOUNTER → 2021-11-01 | Outpatient (CLI) | payer MEDICARE, SELFPAY ==
[2021-11-01 12:29] LABS: Absolute Neutrophil Count 4.3 X10^3/uL (2.0-7.7); Basophil# 0.05 X10^3/uL; Basophil% 0.7 % (0-1); Eosinophil# 0.22 X10^3/uL; Eosinophils% 3.2 % (0-5); Hematocrit 43.4 % (40-54); Hemoglobin 14.5 g/dL (13.0-16.5); Lymphocyte % 23.2 % (19-41); Mean Corp Hgb Conc 33.4 g/dL (32-36); Mean Corpuscular Hgb 28.9 pg (27.0-32.0); Mean Corpuscular Volume 86.5 fL (80-94); Mean Platelet Vol. 10.5 fl (6.2-12.0); Monocyte# 0.76 X10^3/uL; NRBC Flagged by Analyzer 0 % (0-5); Neutrophil # 4.25 X10^3/uL (2.7-7.7); Neutrophil % 61.6 % (47-70); Platelet Count 243 K/mm3 (150-450); RBC Distribution Width CV 12.5 % (11.6-14.6); RBC Distribution Width SD 39.4 fl (35.1-43.9); Red Blood Count 5.02 M/mm3 (4.6-6.2); White Blood Count 6.9 K/mm3 (4.4-11.0)
[2021-11-01 12:59] LABS: Vitamin D,25 Hydroxy 25.5 ng/mL
[2021-11-01 13:04] LABS: AST(SGOT) 17 U/L (15-37); Alanine Aminotransfer ALT/SGPT 28 U/L (16-61); Albumin, Serum 3.6 g/dL (3.2-5.0); Alkaline Phosphatase 57 U/L (45-117); Anion Gap 4 (5-15); BUN 8 mg/dL (7-18); BUN/Creat Ratio 7.5 RATIO (10-20); Calcium,Total 8.4 mg/dL (8.5-10.1); Chloride 106 mmol/L (98-107); Cholesterol 119 mg/dL (200); Creatinine, Serum 1.06 mg/dL (0.70-1.30); EST Glomerular Filtration Rate 74 mL/min (>60); Est Glom Filt Rate - Afr Amer 90 mL/min (>60); Globulin 3.5 g/dL (2.2-4.2); Glucose 148 mg/dL (74-106); High Density Lipoprotein 40 mg/dL; Magnesium 2.2 mg/dL (1.6-2.6); Potassium 3.9 mmol/L (3.5-5.1); Protein, Total 7.1 g/dL (6.4-8.2); Sodium Level 137 mmol/L (136-145); Thyroid Stim Hormone (TSH) 1.58 uIU/mL (0.358-3.74); Triglycerides 142 mg/dL; Very Low Density Lipoprotein 28 mg/dL (5-40)
== END | disposition home or self-care (01) ==
PROVIDERS: PCP Family Medicine; Visit Provider Family Medicine
DX: I48.91 Unspecified atrial fibrillation (principal); E11.69 Type 2 diabetes mellitus with other specified complication; E55.9 Vitamin D deficiency, unspecified
CPT/HCPCS: 36415; 80053; 80061; 82306; 83036; 83735; 84443; 85025

== ENCOUNTER → 2022-02-10 | Outpatient (CLI) | payer MEDICARE, SELFPAY ==
[2022-02-10 11:32] LABS: Absolute Lymphocyte Count 1.52 X10^3/uL (0.83-4.51); Absolute Neutrophil Count 4.4 X10^3/uL (2.0-7.7); Basophil# 0.04 X10^3/uL; Basophil% 0.6 % (0-1); Eosinophils% 2.9 % (0-5); Hematocrit 43.3 % (40-54); Hemoglobin 15.1 g/dL (13.0-16.5); Lymphocyte # 1.52 X10^3/ul (0.83-4.51); Mean Corp Hgb Conc 34.9 g/dL (32-36); Mean Corpuscular Hgb 29.5 pg (27.0-32.0); Mean Corpuscular Volume 84.6 fL (80-94); Mean Platelet Vol. 10.3 fl (6.2-12.0); Monocyte# 0.69 X10^3/uL; NRBC Flagged by Analyzer 0 % (0-5); Neutrophil # 4.44 X10^3/uL (2.7-7.7); Neutrophil % 64.2 % (47-70); Platelet Count 247 K/mm3 (150-450); RBC Distribution Width CV 12.5 % (11.6-14.6); RBC Distribution Width SD 38.3 fl (35.1-43.9); Red Blood Count 5.12 M/mm3 (4.6-6.2); White Blood Count 6.9 K/mm3 (4.4-11.0)
[2022-02-10 12:02] LABS: Microalbumin,Random Urine 9.5 mg/L (NO RANGE EST.); Microalbumin:Creatinine Ratio 7.1 mg/g CRE (<30 mg/g CRE); Vitamin D,25 Hydroxy 37.9 ng/mL
[2022-02-10 12:06] LABS: Hemoglobin A1c 7.4 % (3.8-5.6)
[2022-02-10 12:09] LABS: AST(SGOT) 23 U/L (15-37); Alanine Aminotransfer ALT/SGPT 37 U/L (16-61); Albumin, Serum 3.5 g/dL (3.2-5.0); Alkaline Phosphatase 68 U/L (45-117); Anion Gap 4 (5-15); BUN 9 mg/dL (7-18); BUN/Creat Ratio 8.7 RATIO (10-20); Calcium,Total 8.5 mg/dL (8.5-10.1); Chloride 104 mmol/L (98-107); Cholesterol 121 mg/dL (200); Creatinine, Serum 1.03 mg/dL (0.70-1.30); EST Glomerular Filtration Rate 77 mL/min (>60); Est Glom Filt Rate - Afr Amer 93 mL/min (>60); Globulin 3.6 g/dL (2.2-4.2); Glucose 160 mg/dL (74-106); High Density Lipoprotein 39 mg/dL; Magnesium 2.3 mg/dL (1.6-2.6); Protein, Total 7.1 g/dL (6.4-8.2); Sodium Level 136 mmol/L (136-145); Thyroid Stim Hormone (TSH) 1.23 uIU/mL (0.358-3.74); Triglycerides 138 mg/dL; Very Low Density Lipoprotein 28 mg/dL (5-40)
== END | disposition home or self-care (01) ==
LOC: LAB 11:09
PROVIDERS: PCP Family Medicine; Visit Provider Family Medicine
DX: I25.10 Atherosclerotic heart disease of native coronary artery without angina pectoris (principal); I48.91 Unspecified atrial fibrillation; E11.9 Type 2 diabetes mellitus without complications; E55.9 Vitamin D deficiency, unspecified
CPT/HCPCS: 36415; 80053; 80061; 82043; 82306; 82570; 83036; 83735; 84443; 85025

== ENCOUNTER 2022-04-17 01:54 | Emergency (ER) | payer MEDICARE, SELFPAY ==
[2022-04-17 01:55] VITALS: BP 176/81; PULSE 74; RESP 18; TEMP 36.8; O2SAT 97; BMI 35.9
[2022-04-17 01:58] VITALS: BP 176/81; PULSE 74; RESP 18; TEMP 36.8; O2SAT 97
[2022-04-17 02:32] LABS: Mucous, Urine 0 SEEN /hpf (<or=2+); Squamous Epithelial Cells - UA 0 SEEN /hpf (0-5)
[2022-04-17 02:54] LABS: Color, Urine Brown (Yellow); Glucose, Dipstick 50 mg/dl (Normal); Ketone-Dipstick Negative (Negative); Leukocyte Esterase-Dipstick 500 /ul (Negative); Nitrite-Dipstick Negative (Negative); Occult Blood-Urine 250 /ul (Negative); Protein-Dipstick 100 mg/dl (Negative); Urine Bilirubin Dipstick Negative (Negative); Urine Clarity Sl. Cloudy (Clear); Urine Urobilinogen Normal (Normal); Urine pH 6.5 (5.0 - 8.0)
[2022-04-17 04:24] LABS: Bacteria 2+ /hpf (None Seen); Red Blood Cells-Urine > 100 SEEN /hpf (0-5); White Blood Cells 50-100 SEEN /hpf (0-5)
--- NOTE | 2022-04-17 04:31 | EDS_ITS ---
HPI History of Present Illness Chief Complaint: Complaint Narrative Narrative: Patient is a 67-year-old male with past medical history of hypertension hyperlipidemia type 2 diabetes and paroxysmal atrial fibrillation currently on Coumadin. He states in the last 24 hours he has had urinary frequency urgency and dysuria. He states this evening the urine is turning dark and he is concerned for bleeding. He states a few years ago he had similar symptoms and required antibiotics to help resolve the infection. Secondary to this concern he presents for evaluation [facility] Medical History (Updated 04/17/22 @ 04:[address] Neo Sibley, DO) A-fib CAD (coronary artery disease) Diabetes HTN (hypertension) Hyperlipidemia Home Medications glimepiride 1 mg tablet 1 mg PO DAILY diabetes 02/04/14 [History Last Taken 01/13/18] simvastatin 40 mg tablet 40 mg PO QHS cholesterol 02/04/14 [History Last Taken 01/12/18] magnesium 200 mg tablet 250 mg PO LUNCH supplement 03/30/14 [History Last Taken 01/12/18] aspirin 81 mg chewable tablet 81 mg PO DAILY@0800 ##30 04/01/14 [Rx Last Taken 01/13/18] aluminum-mag hydroxide-simethicone 400 mg-400 mg-40 mg/5 mL oral susp (Mag-Al Plus Extra Strength) 30 ml PO QHS PRN reflux 01/13/18 [History Last Taken 01/12/18] nitroglycerin 0.4 mg sublingual tablet 0.4 mg sublingual DAILY PRN chest pain 01/13/18 [History Last Taken Unknown] warfarin 5 mg tablet (Jantoven) 5 mg PO QHS blood thinner 01/13/18 [History Last Taken 01/11/18] metoprolol tartrate 25 mg tablet 25 mg PO BID #60 tabs 01/15/18 [Rx Last Taken Unknown] sotalol 120 mg tablet 120 mg PO BID #60 tabs 01/15/18 [Rx Last Taken Unknown] Turmeric 1 tab PO DAILY 02/07/19 [History Last Taken Unknown] benazepril 40 mg tablet 20 mg PO DAILY 02/07/19 [History Last Taken Unknown] cephalexin 500 mg capsule 500 mg PO Q6 #40 caps 02/07/19 [Rx Last Taken Unknown] phenazopyridine 200 mg tablet 200 mg PO BID PRN PRN Pain #10 tabs 02/07/19 [Rx Last Taken Unknown] cephalexin 500 mg capsule 500 mg PO TID 7 days #21 caps 04/17/22 [Rx Last Taken Unknown] phenazopyridine 200 mg tablet (Pyridium) 200 mg PO TID PRN pain #10 tabs 04/17/22 [Rx Last Taken Unknown] Allergy/AdvReac Type Severity Reaction Status Date / Time cimetidine [From Tagamet] Allergy irregular Verified 04/17/22 01:58 heart rate cimetidine HCl [From Tagamet] Allergy irregular Verified 04/17/22 01:58 heart rate lansoprazole [From Prevacid] Allergy irregular Verified 04/17/22 01:58 heart rate omeprazole [From Prilosec] Allergy irregular Verified 04/17/22 01:58 heart rate omeprazole magnesium Allergy irregular Verified 04/17/22 01:58 [From Prilosec] heart rate Surgical History (Updated 04/17/22 @ 02:02 by Maurilio Haque) H/O heart bypass surgery Stented coronary artery Social History Smoking Status: Never smoker ROS ROS ED Constitutional Constitutional ED: Denies chills or fever(s) ENT ENT ED: Denies sore throat Cardiovascular Cardiovascular: Denies chest pain Respiratory/Chest Respiratory/Chest: Denies cough or dyspnea Gastrointestinal Gastrointestinal: Reports abdominal pain; Denies diarrhea, nausea or vomiting Genitourinary Genitourinary ED: Reports dysuria, hematuria and urinary frequency Musculoskeletal Musculoskeletal: Reports back pain; Denies myalgias Integumentary Denies rash Neurologic Neurologic: Denies headache(s) Hematologic/Lymphatic Hematologic/Lymphatic: Reports easy bleeding and easy bruising EXAM Physical Exam Const Vital Signs: 04/17/22 01:55 04/17/22 01:58 Temperature 98.2 F 98.2 F Temperature Source Oral Oral Pulse Rate 74 74 Respiratory Rate 18 18 Blood Pressure 176/81 H 176/81 H Blood Pressure Mean 112 112 Pulse Ox 97 97 Oxygen Delivery Method Room Air Room Air Positive well nourished and well developed General Appearance ED: well developed Eyes PERRL and EOMs intact bilaterally Neck supple Resp normal respiratory effort and clear to auscultation bilaterally Cardio regular rate and regular rhythm Rate: other Other Details: Radial pulses are +2-4 bilaterally are equal and symmetric GI non-distended GI Narrative: Abdomen is soft and nondistended with normoactive bowel sound. There is mild pain with palpation of the suprapubic region without voluntary guarding or rigidity. No pulsatile mass Auscultation: normoactive bowel sounds Palpation: soft Back/Spine no CVA tenderness Extremity normal to inspection Neuro oriented x3 and CN's II-XII intact bilaterally Sensorium / Orientation: alert Psych mental status grossly normal Skin no rashes or lesions noted MDM MDM MDM Narrative Medical decision making narrative: Patient presented to the ER with history and exam most consistent with UTI and he had stable vitals and therefore my concern for systemic infection is low. I do not feel there is need for work-up other than UA at this time. Urine showed +2 bacteria with 50-100 white cells and no skin cells to suggest contamination. These findings coupled with his urinary symptoms do correlate with UTI. As he did not have signs of urosepsis he does not need further work-up and he can be started antibiotics and otherwise discharged home with outpatient follow-up Lab Data Attestation: I reviewed the patient's lab results. Labs: Laboratory Results - last 24 hr 04/17/22 02:28 Urine Color Brown Urine Clarity Sl. Cloudy Urine pH 6.5 Ur Specific [place] 1.010 Urine Protein 100 H Urine Glucose (UA) 50 H Urine Ketones Negative Urine Occult Blood 250 H Urine Nitrite Negative Urine Bilirubin Negative Urine Urobilinogen Normal Ur Leukocyte Esterase 500 H Urine RBC > 100 SEEN Urine WBC 50-100 SEEN Ur Squamous Epith Cells 0 SEEN Urine Bacteria 2+ Urine Mucus 0 SEEN Discharge Plan Triage Chief Complaint: Complaint ED Provider: Neo Sibley Dx/Rx/DC Orders Clinical Impression: UTI (urinary tract infection), Paroxysmal atrial fibrillation, Diabetes mellitus, type II, Current use of long term care pharmacist anticoagulation Instructions: Urinary Tract Infections in Men Prescriptions: New cephalexin 500 mg capsule 500 mg PO TID 7 Days Qty: 21 0RF phenazopyridine [Pyridium] 200 mg tablet 200 mg PO TID PRN (Reason: pain) Qty: 10 0RF No Action simvastatin 40 MG tablet 40 mg PO QHS Label Comments: Cholesterol lowering glimepiride 1 MG tablet 1 mg PO DAILY Label Comments: Diabetes magnesium 200 MG tablet 250 mg PO LUNCH Label Comments: Supplement aspirin 81 MG tablet,chewable 81 mg PO DAILY@0800 Qty: 30 0RF Label Comments: Blood thinner for heart health nitroglycerin 0.4 MG tablet, sublingual 0.4 mg sublingual DAILY PRN (Reason: chest pain) alum-mag hydroxide-simeth [Mag-Al Plus Extra Strength] 30 ML suspension 30 ml PO QHS PRN (Reason: reflux) warfarin [Jantoven] 5 MG tablet 5 mg PO QHS Label Comments: Blood thinner metoprolol tartrate 25 MG tablet 25 mg PO BID Qty: 60 0RF sotalol 120 MG tablet 120 mg PO BID Qty: 60 0RF Turmeric 1 tab PO DAILY benazepril 40 MG tablet 20 mg PO DAILY Label Comments: High blood pressure phenazopyridine 200 MG tablet 200 mg PO BID PRN PRN (Reason: Pain) Qty: 10 0RF cephalexin 500 MG capsule 500 mg PO Q6 Qty: 40 0RF Primary Care Provider: Zia Juárez Referrals: Zia Juárez MD [Primary Care Provider] - Activity Restrictions/Additional Instructions: Your urine shows changes consistent with infection. Secondary to this take the antibiotic as directed. Your urine was sent for culture and if the antibiotic is not appropriate for the bacteria you will receive a phone call. Please stop aspirin as you already have blood in your urine and half your Coumadin dose as the Keflex will cause this to elevate. Please return to the ER should you have any further concerns Disposition Disposition: Home, Self Care
[2022-04-17] MEDS: Cephalexin 250 MG Capsule 500 MG PO (04:40)
[2022-04-17] MEDS: Phenazopyridine 95 MG Tablet 190 MG PO (04:40)
== END 2022-04-17 04:42 | disposition home or self-care (01) ==
PROVIDERS: Emergency Provider Emergency Medicine; PCP Family Medicine; Visit Provider Emergency Medicine
DX: N39.0 Urinary tract infection, site not specified (principal); I48.0 Paroxysmal atrial fibrillation; E11.9 Type 2 diabetes mellitus without complications; I25.10 Atherosclerotic heart disease of native coronary artery without angina pectoris; Z79.01 Long term (current) use of anticoagulants; Z95.5 Presence of coronary angioplasty implant and graft; Z95.1 Presence of aortocoronary bypass graft
CPT/HCPCS: 81001; 87077; 87086; 87088; 87186; 99283

== ENCOUNTER → 2022-05-17 | Outpatient (CLI) | payer MEDICARE, SELFPAY ==
[2022-05-17 12:24] LABS: Absolute Lymphocyte Count 1.23 X10^3/uL (0.83-4.51); Absolute Neutrophil Count 7.2 X10^3/uL (2.0-7.7); Basophil# 0.04 X10^3/uL; Basophil% 0.4 % (0-1); Eosinophil# 0.23 X10^3/uL; Eosinophils% 2.3 % (0-5); Hematocrit 44.4 % (40-54); Lymphocyte # 1.23 X10^3/ul (0.83-4.51); Lymphocyte % 12.3 % (19-41); Mean Corp Hgb Conc 33.8 g/dL (32-36); Mean Corpuscular Hgb 28.5 pg (27.0-32.0); Mean Corpuscular Volume 84.3 fL (80-94); Mean Platelet Vol. 10.6 fl (6.2-12.0); Monocyte# 1.29 X10^3/uL; Monocyte% 12.9 % (0-10); NRBC Flagged by Analyzer 0 % (0-5); Neutrophil # 7.17 X10^3/uL (2.7-7.7); Neutrophil % 71.7 % (47-70); Platelet Count 200 K/mm3 (150-450); RBC Distribution Width SD 39.8 fl (35.1-43.9); Red Blood Count 5.27 M/mm3 (4.6-6.2)
[2022-05-17 12:53] LABS: Vitamin D,25 Hydroxy 26.8 ng/mL
[2022-05-17 13:23] LABS: AST(SGOT) 24 U/L (15-37); Alanine Aminotransfer ALT/SGPT 29 U/L (16-61); Albumin, Serum 3.8 g/dL (3.2-5.0); Alkaline Phosphatase 69 U/L (45-117); Anion Gap 8 (5-15); BUN 12 mg/dL (7-18); BUN/Creat Ratio 10.5 RATIO (10-20); Calcium,Total 9.3 mg/dL (8.5-10.1); Chloride 105 mmol/L (98-107); Cholesterol 155 mg/dL (200); Creatinine, Serum 1.14 mg/dL (0.70-1.30); EST Glomerular Filtration Rate 68 mL/min (>60); Est Glom Filt Rate - Afr Amer 83 mL/min (>60); Globulin 3.9 g/dL (2.2-4.2); Glucose 138 mg/dL (74-106); High Density Lipoprotein 39 mg/dL; Magnesium 2.1 mg/dL (1.6-2.6); Potassium 4.2 mmol/L (3.5-5.1); Protein, Total 7.7 g/dL (6.4-8.2); Sodium Level 136 mmol/L (136-145); Triglycerides 165 mg/dL; Very Low Density Lipoprotein 33 mg/dL (5-40)
[2022-05-17 13:29] LABS: Microalbumin,Random Urine 17.1 mg/L (NO RANGE EST.); Microalbumin:Creatinine Ratio 27.1 mg/g CRE (<30 mg/g CRE)
[2022-05-17 14:12] LABS: Hemoglobin A1c 6.1 % (3.8-5.6)
== END | disposition home or self-care (01) ==
LOC: LAB 11:23
PROVIDERS: PCP Family Medicine; Visit Provider Family Medicine
DX: E11.9 Type 2 diabetes mellitus without complications (principal); E55.9 Vitamin D deficiency, unspecified
CPT/HCPCS: 36415; 80053; 80061; 82043; 82306; 82570; 83036; 83735; 85025

== ENCOUNTER → 2022-05-26 | Outpatient (CLI) | payer MEDICARE, SELFPAY ==
[2022-05-26 18:12] LABS: PSA,Total - Annual Screen 3.48 ng/mL (0.00-4.00)
== END | disposition home or self-care (01) ==
LOC: MFPLAB 15:09
PROVIDERS: PCP Family Medicine; Referring Provider Family Medicine; Visit Provider Family Medicine
DX: Z12.5 Encounter for screening for malignant neoplasm of prostate (principal)
CPT/HCPCS: 36415; 84153; G0103

== ENCOUNTER → 2022-07-13 | Outpatient (CLI) | payer MEDICARE, SELFPAY ==
--- NOTE | 2022-07-13 08:34 | ART_ITS ---
Reason For Study: Atherosclerosis Procedure A bilateral lower extremity continuous wave Doppler with analog waveform analysis and ankle brachial indexes. Left Segmental Pressures Left brachial= 141mmHg. Left posterior tibial artery = >254mmHg. Left dorsalis pedis artery = >254mmHg. Left digit = 115 mmHg. The left dorsalis pedis waveforms are triphasic. The left posterior tibial artery waveforms are triphasic. Right Segmental Pressures Right brachial= 144mmHg. Right posterior tibial artery = >254mmHg. Right dorsalis pedis artery = >254mmHg. Right digit = 112 mmHg. The right dorsalis pedis waveforms are triphasic. The right posterior tibial artery waveforms are triphasic. Indices The right ankle brachial index by the dorsalis pedis is NC. The right ankle brachial index by the posterior tibial artery is NC. The right digital-brachial index is 0.78. The left ankle brachial index by the dorsalis pedis is NC. The left ankle brachial index by the posterior tibial artery is NC. The left digital-brachial index is 0.80. VL/Ankle Brachial Index Interpretation Summary Bilateral noncompressible and triphasic flow. DBI 0.78/0.8. Ordering Physician: Luciano Best Referring Physician: Zia Juárez Performed By: Sadaf Collazo RVT
--- NOTE | 2022-07-13 08:34 | AAVD_ITS ---
Reason For Study: Atherosclerosis Aorta Measurements Aorta Doppler Measurements Proximal aorta measures1.64 x 1.66cm. in cross- Peak systolic flow velocities within the proximal sectional axis. aorta measure 106.7 cm/sec. Proximal aorta measures1.64cm. in longitudinal Peak systolic flow velocities within the mid aorta axis. measure 88.6 cm/sec. Mid aorta measures1.57 x 1.57cm. in cross- Peak systolic flow velocities within the distal sectional axis. aorta measure 75.9 cm/sec. Mid aorta measures1.60cm. in longitudinal axis. Distal aorta measures1.59 x 1.61cm. in cross- sectional axis. Distal aorta measures1.57cm. in longitudinal axis. Left Iliac Artery Left iliac artery measures 0.91 x 0.86 cm. in the cross-sectional axis. Left iliac artery measures 0.97 cm. in the longitudinal axis. Peak systolic velocity in the left iliac artery measures 70.5 cm/sec. Right Iliac Artery Right iliac artery measures 1.09 x 1.07 cm. in the cross-sectional axis. Right iliac artery measures 1.07 cm. in the longitudinal axis. Peak systolic velocity in the right iliac artery measures 112.2 cm/sec. Procedure Aorta IVC Iliac vasculature or bypass grafts 28819. Exam performed in department. VL/Abd Aortic/IVC Duplex scan Interpretation Summary No aortoiliac aneurysm or stenosis. Ordering Physician: Luciano Best Referring Physician: Zia Juárez Performed By: Sadaf Collazo RVT
--- NOTE | 2022-07-13 08:35 | CDU_ITS ---
Reason For Study: Stenosis Rt. Velocities/BP Lt. Velocities/BP Prox CCA 62.6/13.5 cm/sec. Prox CCA 57.8/10.7 cm/sec. Mid CCA 52.2/12.6 cm/sec. Mid CCA 54.3/10.7 cm/sec. Dist CCA 49.4/11.6 cm/sec. Dist CCA 49.1/10.7 cm/sec. Prox ICA 46.5/10.9 cm/sec. Prox ICA 50.9/13.5 cm/sec. Mid ICA 72.7/21.2 cm/sec. Mid ICA 78.4/23.4 cm/sec. Dist ICA 78.8/24.7 cm/sec. Dist ICA 49.5/23.4 cm/sec. Rt. ICA/CCA = 1.51. Lt. ICA/CCA = 1.44. Prox ECA 103.6/10.2 cm/sec. Prox ECA 135.7/7.9 cm/sec. Rt. Vert. 42.1/9 cm/sec. Lt. Vert. 35.6/12.5 cm/sec. Right Extracranial There is homogeneous, smooth atherosclerotic plaque noted in the right common carotid artery. There is heterogeneous, irregular atherosclerotic plaque noted in the right internal carotid artery. There is heterogeneous, irregular atherosclerotic plaque noted in the right external carotid artery. Antegrade flow is noted in the right vertebral artery. Left Extracranial There is heterogeneous, irregular atherosclerotic plaque noted in the left common carotid artery. There is heterogeneous, irregular atherosclerotic plaque noted in the left internal carotid artery. There is heterogeneous, irregular atherosclerotic plaque noted in the left external carotid artery. Antegrade flow is noted in the left vertebral artery. Procedure Carotid Duplex 46872. This is a Carotid Duplex examination using B-mode, color flow and specral Doppler. Exam performed in department. VL/Carotid Duplex Ultrasound Interpretation Summary Mild (<50%) stenosis right extracranial internal carotid. Mild (<50%) stenosis left extracranial internal carotid. Flow within the vertebral arteries is antegrade bilaterally. Ordering Physician: Luciano Best Referring Physician: Zia Juárez Performed By: Sadaf Collazo RVT
== END | disposition home or self-care (01) ==
LOC: CVS 08:32
PROVIDERS: PCP Family Medicine; Referring Provider Surgery Vascular Surgery; Visit Provider Surgery Vascular Surgery
DX: I77.1 Stricture of artery (principal); I70.213 Atherosclerosis of native arteries of extremities with intermittent claudication, bilateral legs; I63.9 Cerebral infarction, unspecified; I65.23 Occlusion and stenosis of bilateral carotid arteries; I10 Essential (primary) hypertension
CPT/HCPCS: 93880; 93922; 93978

== ENCOUNTER → 2022-08-22 | Outpatient (CLI) | payer MEDICARE, SELFPAY ==
[2022-08-22 12:46] LABS: Absolute Lymphocyte Count 1.53 X10^3/uL (0.83-4.51); Absolute Neutrophil Count 4.8 X10^3/uL (2.0-7.7); Basophil# 0.06 X10^3/uL; Basophil% 0.8 % (0-1); Eosinophil# 0.18 X10^3/uL; Eosinophils% 2.4 % (0-5); Hematocrit 45.7 % (40-54); Hemoglobin 15.4 g/dL (13.0-16.5); Lymphocyte # 1.53 X10^3/ul (0.83-4.51); Lymphocyte % 20.6 % (19-41); Mean Corp Hgb Conc 33.7 g/dL (32-36); Mean Corpuscular Hgb 28.7 pg (27.0-32.0); Mean Corpuscular Volume 85.1 fL (80-94); Mean Platelet Vol. 10.6 fl (6.2-12.0); Monocyte# 0.79 X10^3/uL; Monocyte% 10.6 % (0-10); NRBC Flagged by Analyzer 0 % (0-5); Neutrophil # 4.84 X10^3/uL (2.7-7.7); Neutrophil % 65.1 % (47-70); Platelet Count 241 K/mm3 (150-450); RBC Distribution Width CV 12.6 % (11.6-14.6); RBC Distribution Width SD 38.6 fl (35.1-43.9); Red Blood Count 5.37 M/mm3 (4.6-6.2); White Blood Count 7.4 K/mm3 (4.4-11.0)
[2022-08-22 13:23] LABS: Vitamin D,25 Hydroxy 36.3 ng/mL
[2022-08-22 13:29] LABS: AST(SGOT) 22 U/L (15-37); Alanine Aminotransfer ALT/SGPT 27 U/L (16-61); Albumin, Serum 3.8 g/dL (3.2-5.0); Alkaline Phosphatase 65 U/L (45-117); Anion Gap 7 (5-15); BUN 16 mg/dL (7-18); BUN/Creat Ratio 13.9 RATIO (10-20); Calcium,Total 8.7 mg/dL (8.5-10.1); Chloride 105 mmol/L (98-107); Cholesterol 143 mg/dL (200); Creatinine, Serum 1.15 mg/dL (0.70-1.30); EST Glomerular Filtration Rate 68 mL/min (>60); Est Glom Filt Rate - Afr Amer 82 mL/min (>60); Globulin 3.7 g/dL (2.2-4.2); Glucose 160 mg/dL (74-106); High Density Lipoprotein 42 mg/dL; Magnesium 2.2 mg/dL (1.6-2.6); Potassium 4.3 mmol/L (3.5-5.1); Protein, Total 7.5 g/dL (6.4-8.2); Sodium Level 137 mmol/L (136-145); Thyroid Stim Hormone (TSH) 1.15 uIU/mL (0.358-3.74); Triglycerides 137 mg/dL; Very Low Density Lipoprotein 27 mg/dL (5-40)
[2022-08-22 13:48] LABS: Microalbumin,Random Urine 17.5 mg/L (NO RANGE EST.); Microalbumin:Creatinine Ratio 21.5 mg/g CRE (<30 mg/g CRE)
[2022-08-22 13:59] LABS: Hemoglobin A1c 6.5 % (3.8-5.6)
== END | disposition home or self-care (01) ==
LOC: LAB 11:39
PROVIDERS: PCP Family Medicine; Referring Provider Family Medicine; Visit Provider Family Medicine
DX: E55.9 Vitamin D deficiency, unspecified (principal); I48.91 Unspecified atrial fibrillation; E11.9 Type 2 diabetes mellitus without complications
CPT/HCPCS: 36415; 80053; 80061; 82043; 82306; 82570; 83036; 83735; 84443; 85025

== ENCOUNTER → 2022-11-21 | Outpatient (CLI) | payer MEDICARE, SELFPAY ==
[2022-11-21 11:55] LABS: Absolute Lymphocyte Count 1.55 X10^3/uL (0.83-4.51); Absolute Neutrophil Count 4.9 X10^3/uL (2.0-7.7); Basophil# 0.07 X10^3/uL; Basophil% 0.9 % (0-1); Eosinophil# 0.17 X10^3/uL; Eosinophils% 2.3 % (0-5); Hematocrit 43.7 % (40-54); Hemoglobin 14.6 g/dL (13.0-16.5); Lymphocyte # 1.55 X10^3/ul (0.83-4.51); Lymphocyte % 20.7 % (19-41); Mean Corp Hgb Conc 33.4 g/dL (32-36); Mean Corpuscular Hgb 29.2 pg (27.0-32.0); Mean Corpuscular Volume 87.4 fL (80-94); Mean Platelet Vol. 10.3 fl (6.2-12.0); Monocyte# 0.77 X10^3/uL; Monocyte% 10.3 % (0-10); NRBC Flagged by Analyzer 0 % (0-5); Neutrophil % 65.3 % (47-70); Platelet Count 262 K/mm3 (150-450); RBC Distribution Width CV 12.5 % (11.6-14.6); RBC Distribution Width SD 39.9 fl (35.1-43.9); White Blood Count 7.5 K/mm3 (4.4-11.0)
[2022-11-21 12:00] LABS: International Normalized Ratio 2.3; Prothrombin Time (Protime)PT. 25.5 SECONDS (11.7-14.9)
[2022-11-21 13:08] LABS: Hemoglobin A1c 6.7 % (3.8-5.6)
[2022-11-21 13:12] LABS: ALB/GLOB Ratio 0.9 RATIO (0.9-2.4); AST(SGOT) 20 U/L (15-37); Alanine Aminotransfer ALT/SGPT 25 U/L (16-61); Albumin, Serum 3.5 g/dL (3.2-5.0); Alkaline Phosphatase 66 U/L (45-117); Anion Gap 5 (5-15); BUN 10 mg/dL (7-18); BUN/Creat Ratio 8.8 RATIO (10-20); Calcium,Total 8.8 mg/dL (8.5-10.1); Chloride 105 mmol/L (98-107); Cholesterol 130 mg/dL (200); Creatinine, Serum 1.14 mg/dL (0.70-1.30); EST Glomerular Filtration Rate 68 mL/min (>60); Est Glom Filt Rate - Afr Amer 82 mL/min (>60); Globulin 3.8 g/dL (2.2-4.2); Glucose 127 mg/dL (74-106); High Density Lipoprotein 40 mg/dL; Potassium 4.1 mmol/L (3.5-5.1); Protein, Total 7.3 g/dL (6.4-8.2); Sodium Level 138 mmol/L (136-145); Triglycerides 171 mg/dL; Very Low Density Lipoprotein 34 mg/dL (5-40)
== END | disposition home or self-care (01) ==
LOC: LAB 11:17
PROVIDERS: PCP Family Medicine; Visit Provider Family Medicine
DX: I25.10 Atherosclerotic heart disease of native coronary artery without angina pectoris (principal); E11.9 Type 2 diabetes mellitus without complications
CPT/HCPCS: 36415; 80053; 80061; 83036; 85025; 85610

== ENCOUNTER → 2023-02-20 | Outpatient (CLI) | payer MEDICARE, SELFPAY ==
[2023-02-20 12:38] LABS: Absolute Lymphocyte Count 1.59 X10^3/uL (0.83-4.51); Absolute Neutrophil Count 4.8 X10^3/uL (2.0-7.7); Basophil# 0.05 X10^3/uL; Basophil% 0.7 % (0-1); Eosinophil# 0.16 X10^3/uL; Eosinophils% 2.2 % (0-5); Hematocrit 45.7 % (40-54); Hemoglobin 15.2 g/dL (13.0-16.5); Lymphocyte # 1.59 X10^3/ul (0.83-4.51); Lymphocyte % 21.5 % (19-41); Mean Corp Hgb Conc 33.3 g/dL (32-36); Mean Corpuscular Hgb 29.2 pg (27.0-32.0); Mean Corpuscular Volume 87.7 fL (80-94); Mean Platelet Vol. 10.6 fl (6.2-12.0); Monocyte# 0.78 X10^3/uL; Monocyte% 10.5 % (0-10); NRBC Flagged by Analyzer 0 % (0-5); Neutrophil # 4.78 X10^3/uL (2.7-7.7); Neutrophil % 64.6 % (47-70); Platelet Count 238 K/mm3 (150-450); RBC Distribution Width CV 12.8 % (11.6-14.6); RBC Distribution Width SD 41.3 fl (35.1-43.9); Red Blood Count 5.21 M/mm3 (4.6-6.2); White Blood Count 7.4 K/mm3 (4.4-11.0)
[2023-02-20 13:02] LABS: Vitamin D,25 Hydroxy 37.5 ng/mL
[2023-02-20 13:15] LABS: AST(SGOT) 18 U/L (15-37); Alanine Aminotransfer ALT/SGPT 25 U/L (16-61); Albumin, Serum 3.6 g/dL (3.2-5.0); Alkaline Phosphatase 60 U/L (45-117); Anion Gap 6 (5-15); BUN 12 mg/dL (7-18); BUN/Creat Ratio 10.6 RATIO (10-20); Calcium,Total 8.7 mg/dL (8.5-10.1); Chloride 105 mmol/L (98-107); Cholesterol 141 mg/dL (200); Creatinine, Serum 1.13 mg/dL (0.70-1.30); EST Glomerular Filtration Rate 69 mL/min (>60); Est Glom Filt Rate - Afr Amer 83 mL/min (>60); Globulin 3.5 g/dL (2.2-4.2); Glucose 129 mg/dL (74-106); Hemoglobin A1c 6.6 % (3.8-5.6); High Density Lipoprotein 45 mg/dL; Magnesium 2.4 mg/dL (1.6-2.6); Potassium 4.1 mmol/L (3.5-5.1); Protein, Total 7.1 g/dL (6.4-8.2); Sodium Level 138 mmol/L (136-145); Triglycerides 155 mg/dL; Very Low Density Lipoprotein 31 mg/dL (5-40)
== END | disposition home or self-care (01) ==
LOC: LAB 11:30
PROVIDERS: PCP Family Medicine; Visit Provider Family Medicine
DX: I25.10 Atherosclerotic heart disease of native coronary artery without angina pectoris (principal); E11.8 Type 2 diabetes mellitus with unspecified complications; I48.91 Unspecified atrial fibrillation; E55.9 Vitamin D deficiency, unspecified
CPT/HCPCS: 36415; 80053; 80061; 82306; 83036; 83735; 85025

== ENCOUNTER → 2023-05-22 | Outpatient (CLI) | payer MEDICARE, SELFPAY ==
--- OUTSIDE RECORDS SUMMARY | 2023-05-22 11:54 | XMS RPT_ITS | CCD ---
Author Name Unknown Address [address] [place] [address] Organization [facility] Care Team Providers Care Patron Attendant Name Role Phone Artem Carrillo Primary Care Provider [phone] TINY SHEPHERD Attending Unavailable Peace Beckett Referring Unavailable ARTEM CARRILLO Primary Care UnavailPeace Ball Attending Unavailable ARTEM CARRILLO Primary Care Unavaildarnell e KELLY DWYER Attending Unavailab ARTEM Collins MD Primary Care Unavailable LORENA PORTILLO, ARTEM Primary Care Physician Allergies Allergy Classification Reported Allergen(s) Allergy Type Date of Onset Reaction(s) Facility (2 sources) Proton Pump Inhibitors; Translations: [PROTON PUMP INHIBITORS] Drug Allergy 7 Other: See Comments [facility] (1 source) Citalopram; Translations: [citalopram] Drug Allergy did not tolerate [facility] (1 source) lansoprazole; Translations: [lansoprazole] Drug Allergy Hypertension [facility] (1 source) Loratadine; Translations: [loratadine] Drug Allergy Hives [facility] (1 source) Omeprazole; Translations: [omeprazole] Drug Allergy Palpitations [facility] (1 source) PARoxetine; Translations: [paroxetine] Drug Allergy did not tolerate [facility] (1 source) Perflutren; Translations: [perflutren] Drug Allergy Severe Back Pain [facility] Medications Current Medications Medication Drug Class(es) Dates Sig (Normalized) Sig (Original) aspirin 81 mg delayed release oral tablet (2 sources) Platelet Aggregation Inhibitor, Nonsteroidal Anti-inflammatory Drug Start: 11-12-2018 aspirin 81 mg oral delayed release tablet Dose : 81 mg = 1 tab(s), Oral, qDay, # 30 tab(s), 0 Refill(s) Start Date: 11/12/18 Status: Ordered Completed/Discontinued Medications Medication Drug Class(es) Dates Sig (Normalized) Sig (Original) 24 hr dilTIAZem hydrochloride 120 mg extended release oral capsule (1 source) Calcium Channel Alanna Start: 02-15-2016 CARTIA XT 120 mg 24 hr capsule 1 tablet once daily. 0 02/15/2016 Active Problems Problem Classification Problem Date Documented Date Episodic/Chronic Anxiety disorders (1 source) Generalized anxiety disorder 11-12-2018 Chronic Cardiac dysrhythmias (1 source) Atrial fibrillation 11-12-2018 Chronic Coronary atherosclerosis and other heart disease (1 source) Coronary arteriosclerosis 11-12-2018 Chronic Diabetes mellitus without complication (1 source) Type 2 diabetes mellitus 06-17-2019 Chronic Disorders of lipid metabolism (1 source) Mixed hyperlipidemia 11-12-2018 Chronic Essential hypertension (1 source) Benign essential hypertension 11-12-2018 Chronic Heart valve disorders (2 sources) Aortic valve regurgitation; Translations: [History of aortic valve replacement] 11-12-2018 Chronic Hyperplasia of prostate (1 source) Benign prostatic hyperplasia 11-12-2018 Chronic Other and unspecified benign neoplasm (1 source) History of polyp of colon; Translations: [Personal history of colonic polyps] Episodic Other and unspecified benign neoplasm (1 source) Personal history of colonic polyps; Translations: [History of colonic polyps] Onset: 07-18-2022 Episodic Other screening for suspected conditions (not mental disorders or infectious disease) (3 sources) Patient encounter status; Translations: [Encounter for screening for malignant neoplasm of colon] Onset: 06-08-2022 Episodic Glenny-; endo-; and myocarditis; cardiomyopathy (except that caused by tuberculosis or sexually transmitted disease) (1 source) Dilated cardiomyopathy 06-17-2019 Chronic Residual codes; unclassified (1 source) Obstructive sleep apnea syndrome 09-20-2019 Chronic Residual codes; unclassified (1 source) Sleep apnea 11-12-2018 Chronic Results Test Name Value Interpretation Reference Range Facil ity Vital Signs Date Time Vital Sign Value Performing Clinician Faci lity 06-08-2022 13:04-0500 Body height 182.9 cm Peace Beckett PA-C Work Phone: [facility] 06-08-2022 13:04-0500 Body temperature 98.4 [degF] Peace Sujit PA-C Work Phone: [facility] 06-08-2022 13:04-0500 Body weight 119.11 kg Peace Sujit PA-C Work Phone: [facility] 06-08-2022 13:04-0500 Diastolic blood pressure 88 mm[Hg] Peacedewey Barryf PA-C Work Phone: [facility] 06-08-2022 13:04-0500 Heart rate 66 /min Peace Kenesaw PA-C Work Phone: [facility] 06-08-2022 13:04-0500 SaO2% (BldA) [Mass fraction] 98 % Peacedewey Barryf PA-C Work Phone: [facility] 06-08-2022 13:04-0500 Systolic blood pressure 136 mm[Hg] Peacedewey Barryf PA-C Work Phone: [facility] Encounters Encounter Date Encounter Type Care Provider Facility Start: 11-24-2022 End: 11-24-2022 Patient encounter procedure KELLY JAIN CERTIFIED BENCH JEWELER TECHNICIAN-ASBESTOS REMOVAL SUPERVISOR [facility] Start: 11-15-2022 ambulatory KELLY JAIN CERTIFIED BENCH JEWELER TECHNICIAN-ASBESTOS REMOVAL SUPERVISOR F acility:B Start: 07-18-2022 End: 07-18-2022 ambulatory TINY SHEPHERD Facility:[facility] Start: 06-08-2022 End: 06-09-2022 ambulatory Peace Beckett Facility:[facility] Start: 06-08-2022 End: 06-08-2022 Patient encounter procedure Peace Barryf PA-C Work Phone: General Surgery Procedures Date Procedure Procedure Detail Performing Clinician Start: 01-28-2019 Electrocardiographic monitoring KELLY JAIN CERTIFIED BENCH JEWELER TECHNICIAN-ASBESTOS REMOVAL SUPERVISOR Plan of Treatment Date Care Activity Detail Author Start: 04-10-2022 ADVANCE DIRECTIVE DISCUSSION ADVANCE DIRECTIVE DISCUSSION [facility] Start: 04-10-2022 DEPRESSION ASSESSMENT DEPRESSION ASS ESSMENT [facility] Start: 12-09-2021 Influenza vaccination INFLUENZA (#1) [facility] Start: 07-06-2021 COVID-19 VACCINE (4 - Booster for Moderna series) COVID-19 VACCINE (4 - Booster for Moderna series) [facility] Start: 06-16-2021 Colonoscopy COLONOSCOPY [facility] Start: 06-16-2021 COLORECTAL CANCER SCREENING COLORECTAL CANCER SCREENING [facility] Start: 01-01-2021 PNEUMOCOCCAL: 65+ (1 - PCV) PNEUMOCOCCAL: 65+ (1 - PCV) [facility] Start: 01-01-2011 PROSTATE CANCER SCRE ENING DISCUSSION PROSTATE CANCER SCREENING DISCUSSION [facility] Start: 01-01-2006 SHINGRIX VACCINE (1 of 2) SHINGRIX V ACCINE (1 of 2) [facility] Start: 01-01-2001 COLOGUARD (FIT-DNA) COLOGUARD (FIT-D NA) [facility] Start: 01-01-[address] COLONOGRAPHY [facility] Start: 01-01-2001 DIABETES SCREEN DIABETES SCREEN [facility] Start: 01-01-2001 FECAL OCCULT BLOOD FECAL OCCULT BLOO D [facility] Start: 01-01-2001 SIGMOIDOSCOPY SIGMOIDOSCOPY [facility] Start: 01-01-1991 LIPID SCREEN LIPID SCREEN [facility] Start: 01-01-1975 Urine microalbumin profile DTAP,TDAP ,TD (1 - Tdap) [facility] Start: 01-01-1974 HEPATITIS C SCREENING HEPATITIS C SC REENING [facility] Start: 1955 ABDOMINAL AORTIC ANE URYSM SCREENING ABDOMINAL AORTIC ANEURYSM SCREENING [facility] Immunizations Immunization Date Immunization Notes Care Provider Pastora gonzalez 07-01-2020 COVID-19, mRNA, LNP- S, PF, 100 mcg or 50 mcg dose; Translations: [Moderna COVID-19 Vaccine] KELLY JAIN APRN-ASBESTOS REMOVAL SUPERVISOR [facility] 06-03-2020 COVID-19, mRNA, LNP- S, PF, 100 mcg or 50 mcg dose; Translations: [Moderna COVID-19 Vaccine] KELLY JAIN CERTIFIED BENCH JEWELER TECHNICIAN-ASBESTOS REMOVAL SUPERVISOR [facility] Vaccine Clinic Payers Date Payer Category Payer Medicare [employer] [place] [id number] 2022-Present [phone] [address] [place] [address] HMO [id number] 2022 Medicare [id number] 1955 Unknown [id number] Social History Date Type Detail Facility Start: 11-12-2018 End: 06-08-2022 Tobacco smoking status NHIS Ex-smoker [facility] End: 04-10-1996 History of tobacco use Current smoker [facility] End: 04-10-1996 History of tobacco use Cigarette Smoker [facility] Start: 06-08-2022 Tobacco use and exposure Smoke less tobacco non-user [facility] Start: 06-08-2022 Alcohol intake Current non-dr clinical transformation specialist of alcohol (finding) [facility] Start: 1955 Sex Assigned At Not on file C [facility] Sex Assigned At Sex [facility] Medical Equipment Procedure Code Equipment Code Equipment Origin al Text Equipment Identifier Dates See Instructions , qs for 1 month supply, testing 4 times daily, # 1 EA, 11 Refill(s), Pharmacy: [id number] Start: 12-17-2018 Clinical Note 11-24-2022 Note Date & Type Note Facility [facility] Progress note 06-08-2022 Note Date & Type Note Facility 06-08-2022 Note HNO ID: [id number] Author: Peace Beckett PA-C Service: ? Author Type: Physician Plating Stripper Type: Progress Notes Filed: 06/14/2022 4:06 PM Note Text: HISTORY AND PHYSICAL [facility] 1955 REFERRING PHYSICIAN: No ref. provider found CHIEF COMPLAINT: Consult (History colon polyps) HPI: The patient is a 67 year old male referred for endoscopy. Faizan notes history of colon polyps with need for surveillance colonoscopy. Patient denies any change in bowel habits, weight changes, blood in stools, black tarry stools or abdominal pain. The patient notes no upper GI complaints. Faizan has undergone prior endoscopy. Last colonoscopy 06/16/[address] Shepherd under conscious sedation with removal of multiple adenomatous polyps, 5 year follow up recommended. Patient denies chest pain, shortness of breath or recent hospitalizations. Denies problems with sedation in the past. PAST MEDICAL HISTORY Diagnosis Date Arrhythmia Atrial fibrillation (HCC) CAD (coronary artery disease) Diabetes mellitus type II, controlled (HCC) Dilated cardiomyopathy (HCC) History of colonic polyps Hypertension Sleep apnea Stroke (HCC) Vitamin D deficiency PAST SURGICAL HISTORY Procedure Laterality Date BACK SURGERY HX 10/2005 COLONOSCOPY 06/16/2016 EGD HIATAL HERNIA REPAIR HX 11/1999 PAST SURGICAL HISTORY OF 2016 double bypass surgery PERCUT AORTIC VALVE REPLACE TONSILLECTOMY HX 1963 Current Outpatient Medications Medication Sig sotalol (BETAPACE) 80 mg tablet 1 tablet twice daily. 120mg in morning 160mg at bedtime metoprolol tartrate, short acting, (LOPRESSOR) 100 mg tablet 1 tablet twice daily. CARTIA XT 120 mg 24 hr capsule 1 tablet once daily. Benazepril HCl 40 mg tablet 1 tablet once daily. warfarin (COUMADIN) 5 mg tablet 1 tablet once daily. 5mg MWF 6mg Sa, Grayson, T, Th simvastatin (ZOCOR) 40 mg tablet 1 tablet daily at bedtime. aspirin, enteric coated (ASPIRIN, ENTERIC COATED) 81 mg EC tablet Take 81 mg by mouth once daily. glimepiride (AMARYL) 1 mg tablet Take 1 mg by mouth daily with breakfast. SIMETHICONE (MYLANT[place] GAS ORAL) Take by mouth as needed. [place] 160 mg capsule Take 160 mg by mouth twice daily. Fish Oil-DHA-EPA 1,200-144-216 mg cap Take 1 capsule by mouth daily at bedtime. Magnesium 250 mg tab Take 250 mg by mouth once daily. TURMERIC (CURCUMIN MISC) daily at bedtime. No current facility-administered medications for this visit. ALLERGIES: Proton Pump Inhibitors PERSONAL HISTORY: Social History Tobacco Use Smoking status: Former Smokeless tobacco: Never Substance Use Topics Alcohol use: No Drug use: No FAMILY HISTORY: FAMILY HISTORY Problem Relation Age of Onset Diabetes Mother Coronary Artery Disease Father other (Brain Cancer) Father Coronary Artery Disease Sister Coronary Artery Disease Brother REVIEW OF SYMPTOMS: The review of systems data was entered by the nurse and reviewed by ca Nursing Notes: Ana Doan LPN 06/08/2022 1:09 PM Signed REVIEW OF SYSTEMS: General: The patient denies fatigue, denies weight loss, denies weight gain, denies feeling hot, and denies feelings of cold. Eyes: The patient denies glaucoma, denies eye injury/surgery, wears glasses or contacts. Ear/Nose/Throat: The patient denies allergies, denies hayfever, denies ear infections, and denies bloody noses. Cardiovascular: The patient denies chest pain, NOTES heart disease, NOTES high blood pressure,NOTES cardiac stent, denies prior heart attack, NOTES irregular heart beat, NOTES high cholesterol, denies poor circulation, denies heart failure, other cardiac issues, denies claudication, denies cold feet, denies peripheral arterial stent. Respiratory: The patient denies tuberculosis, denies pneumonia, denies frequent cough, denies pulmonary embolism, denies shortness of breath, and denies coughing up blood. Gastrointestinal: The patient denies difficulty swallowing, denies acid reflux, denies ulcers, denies vomiting, denies jaundice/hepatitis, denies gallbladder problems, denies black or tarry stools, denies hemorrhoids, denies bleeding from rectum, denies diverticulitis, denies constipation, denies diarrhea, denies loss of stool control, and denies hernias. Kidney/Bladder: The patient denies kidney stones, NOTES urine infections, and denies bloody urine. Skin: The patient denies a history of skin cancer, denies bleeding/changing moles, and denies a history of skin rash. Neurologic: The patient denies a history of epilepsy/convulsions, denies headaches, denies head/spinal injuries, and denies stroke/TIA. Psychiatric: The patient denies psychiatric medications, denies depression, and denies voices, denies substance abuse. Endocrine: The patient denies thyroid disorders, NOTES diabetes, and denies hormonal problems. Hematologic: The patient denies a history of bruising, denies bleeding, and denies anemia, denies blood clots. In (more content not included)... [facility] Nurse Note 06-08-2022 Ana Doan, SIGN MAKER - 06/08/2022 1:07 PM EST Note Date & Type Note Facility 06-08-2022 Nurse Note REVIEW OF SYSTEMS: General: The patient denies fatigue, denies weight loss, denies weight gain, denies feeling hot, and denies feelings of cold. Eyes: The patient denies glaucoma, denies eye injury/surgery, wears glasses or contacts. Ear/Nose/Throat: The patient denies allergies, denies hayfever, denies ear infections, and denies bloody noses. Cardiovascular: The patient denies chest pain, NOTES heart disease, NOTES high blood pressure,NOTES cardiac stent, denies prior heart attack, NOTES irregular heart beat, NOTES high cholesterol, denies poor circulation, denies heart failure, other cardiac issues, denies claudication, denies cold feet, denies peripheral arterial stent. Respiratory: The patient denies tuberculosis, denies pneumonia, denies frequent cough, denies pulmonary embolism, denies shortness of breath, and denies coughing up blood. Gastrointestinal: The patient denies difficulty swallowing, denies acid reflux, denies ulcers, denies vomiting, denies jaundice/hepatitis, denies gallbladder problems, denies black or tarry stools, denies hemorrhoids, denies bleeding from rectum, denies diverticulitis, denies constipation, denies diarrhea, denies loss of stool control, and denies hernias. Kidney/Bladder: The patient denies kidney stones, NOTES urine infections, and denies bloody urine. Skin: The patient denies a history of skin cancer, denies bleeding/changing moles, and denies a history of skin rash. Neurologic: The patient denies a history of epilepsy/convulsions, denies headaches, denies head/spinal injuries, and denies stroke/TIA. Psychiatric: The patient denies psychiatric medications, denies depression, and denies voices, denies substance abuse. Endocrine: The patient denies thyroid disorders, NOTES diabetes, and denies hormonal problems. Hematologic: The patient denies a history of bruising, denies bleeding, and denies anemia, denies blood clots. Infections: The patient NOTES a history of measles and mumps, denies rheumatic fever, and denies sexually transmitted diseases. Musculoskeletal: The patient denies back pain/injury, NOTES back problems, NOTES sciatica, denies knee/foot trouble, denies arthritis, or denies gout. When was patient's last Mammogram screening? N/A Last Colonoscopy: 06/2016 Ana Doan LPN documented in this encounter [facility] History of Present illness Narrative 06-08-2022 Peace Beckett PA-C - 06/08/2022 12:48 PM EST Note Date & Type Note Facility 06-08-2022 History of Presen t illness Narrative HISTORY AND PHYSICAL [facility] 1955 REFERRING PHYSICIAN: No ref. provider found CHIEF COMPLAINT: Consult (History colon polyps) HPI: The patient is a 67 year old male referred for endoscopy. Faizan notes history of colon polyps with need for surveillance colonoscopy. Patient denies any change in bowel habits, weight changes, blood in stools, black tarry stools or abdominal pain. The patient notes no upper GI complaints. Faizan has undergone prior endoscopy. Last colonoscopy 06/16/[address] Shepherd under conscious sedation with removal of multiple adenomatous polyps, 5 year follow up recommended. Patient denies chest pain, shortness of breath or recent hospitalizations. Denies problems with sedation in the past. PAST MEDICAL HISTORY Diagnosis Date Arrhythmia Atrial fibrillation (HCC) CAD (coronary artery disease) Diabetes mellitus type II, controlled (HCC) Dilated cardiomyopathy (HCC) History of colonic polyps Hypertension Sleep apnea Stroke (HCC) Vitamin D deficiency PAST SURGICAL HISTORY Procedure Laterality Date BACK SURGERY HX 10/2005 COLONOSCOPY 06/16/2016 EGD HIATAL HERNIA REPAIR HX 11/1999 PAST SURGICAL HISTORY OF 2016 double bypass surgery PERCUT AORTIC VALVE REPLACE TONSILLECTOMY HX 1963 Current Outpatient Medications Medication Sig sotalol (BETAPACE) 80 mg tablet 1 tablet twice daily. 120mg in morning 160mg at bedtime metoprolol tartrate, short acting, (LOPRESSOR) 100 mg tablet 1 tablet twice daily. CARTIA XT 120 mg 24 hr capsule 1 tablet once daily. Benazepril HCl 40 mg tablet 1 tablet once daily. warfarin (COUMADIN) 5 mg tablet 1 tablet once daily. 5mg MWF 6mg Sa, Grayson, T, Th simvastatin (ZOCOR) 40 mg tablet 1 tablet daily at bedtime. aspirin, enteric coated (ASPIRIN, ENTERIC COATED) 81 mg EC tablet Take 81 mg by mouth once daily. glimepiride (AMARYL) 1 mg tablet Take 1 mg by mouth daily with breakfast. SIMETHICONE (MYLANTA GAS ORAL) Take by mouth as needed. [place] 160 mg capsule Take 160 mg by mouth twice daily. Fish Oil-DHA-EPA 1,200-144-216 mg cap Take 1 capsule by mouth daily at bedtime. Magnesium 250 mg tab Take 250 mg by mouth once daily. TURMERIC (CURCUMIN MISC) daily at bedtime. No current facility-administered medications for this visit. ALLERGIES: Proton Pump Inhibitors PERSONAL HISTORY: Social History Tobacco Use Smoking status: Former Smokeless tobacco: Never Substance Use Topics Alcohol use: No Drug use: No FAMILY HISTORY: FAMILY HISTORY Problem Relation Age of Onset Diabetes Mother Coronary Artery Disease Father other (Brain Cancer) Father Coronary Artery Disease Sister Coronary Artery Disease Brother REVIEW OF SYMPTOMS: The review of systems data was entered by the nurse and reviewed by ca Nursing Notes: Ana Doan LPN 06/08/2022 1:09 PM Signed REVIEW OF SYSTEMS: General: The patient denies fatigue, denies weight loss, denies weight gain, denies feeling hot, and denies feelings of cold. Eyes: The patient denies glaucoma, denies eye injury/surgery, wears glasses or contacts. Ear/Nose/Throat: The patient denies allergies, denies hayfever, denies ear infections, and denies bloody noses. Cardiovascular: The patient denies chest pain, NOTES heart disease, NOTES high blood pressure,NOTES cardiac stent, denies prior heart attack, NOTES irregular heart beat, NOTES high cholesterol, denies poor circulation, denies heart failure, other cardiac issues, denies claudication, denies cold feet, denies peripheral arterial stent. Respiratory: The patient denies tuberculosis, denies pneumonia, denies frequent cough, denies pulmonary embolism, denies shortness of breath, and denies coughing up blood. Gastrointestinal: The patient denies difficulty swallowing, denies acid reflux, denies ulcers, denies vomiting, denies jaundice/hepatitis, denies gallbladder problems, denies black or tarry stools, denies hemorrhoids, denies bleeding from rectum, denies diverticulitis, denies constipation, denies diarrhea, denies loss of stool control, and denies hernias. Kidney/Bladder: The patient denies kidney stones, NOTES urine infections, and denies bloody urine. Skin: The patient denies a history of skin cancer, denies bleeding/changing moles, and denies a history of skin rash. Neurologic: The patient denies a history of epilepsy/convulsions, denies headaches, denies head/spinal injuries, and denies stroke/TIA. Psychiatric: The patient denies psychiatric medications, denies depression, and denies voices, denies substance abuse. Endocrine: The patient denies thyroid disorders, NOTES diabetes, and denies hormonal problems. Hematologic: The patient denies a history of bruising, denies bleeding, and denies anemia, denies blood clots. Infections: The patient NOTES a history of measles and mumps, denies rheumatic fever, and denies sexually transmitted diseases. Musculoskeletal: The patient denies back pain/injury, NOTES back problems, NOTES sciatica, denies knee/foot trouble, denies arthritis, or denies gout. When was patient's last Mammogram screening? N/A Last Colonoscopy: 06/2016 Ana Doan LPN I have confirmed and edited as necessary, the PFSH and ROS obtained by others. Peace Beckett PA-C PHYSICAL EXAMINATION: General: The patient is 67 year old male, well nourished, well hydrated in no acute distress. The patient is oriented to time, place, and person. VITALS: Blood pressure 136/88, pulse 66, temperature 36.9 C (98.4 F), height 182.9 cm (6'), weight 119.1 kg (262 lb 9.6 oz), SpO2 98 %. There is no height or weight on file to calculate BMI. HEENT: Normal cephalic, ataumatic, pupils are equally round, sclera are anicteric, mucous membranes are moist, oropharynx is clear. Neck has no masses, asymmetry or lymphadenopathy. Respiratory: Clear to auscultation and percussion. Normal respiratory excursion and pattern. Cardiac: Examination is regular rate and rhythm. Normal S1/S2 Abdominal exam: Soft, nontender, with no palpable masses. No hepatosplenomegaly. No palpable hernias. Extremities: no clubbing, cyanosis or edema. No adenopathy. LABORATORY VALUES: As Noted RADIOLOGIC STUDIES: As Noted Assessment IMPRESSION: encounter for surveillance colonoscopy due to personal history of polyps PLAN: I have reviewed my findings with the surgeon. Will plan for lower endoscopy. We discussed the risks and benefits of the planned endoscopy. I have informed the patient that complications can occur including failure to complete the endoscopy and perforation. The patient had the opportunity to ask questions concerning the planned endoscopy. My staff has also explained the procedure to the patient in understandable terms and has given the patient printed material concerning the procedure. The patient freely consents to surgery. The patient was offered a surgery/procedure at a [facility]. I have counseled the patient regarding the risk of exposure to and/or potential harm posed by the COVID-19 virus with having a surgery/procedure at this time versus the risk of delaying the surgery/procedure. It is not possible to know either the risk of delaying the surgery or procedure or chance of getting an infection with perfect accuracy, but a joint decision was made between the patient and myself to proceed at this time with endoscopy. I plan to use Golytely bowel preparation Remain on anticoagulation for procedure I have explained to the patient the difference between IV conscious sedation and MAC anesthesia - and I have offered either, according to the patient's wishes. I have explained that with IV conscious sedation there is no anesthesia provider available and therefore there is a limitation of the amount of IV medications that can be given and that the patient may wake up in the middle of the procedure and/or experience pain/discomfort during the procedure. Further discussion was done and the patient was given the opportunity to ask questions and all questions were answered. The patient chooses IV conscious sedation Diagnoses: (Z12.11) Encounter for screening for malignant neoplasm of colon (primary encounter diagnosis) (Z86.010) History of colonic polyps Consultation requested by Dr. Carrillo for an opinion regarding colonoscopy. My final recommendations will be communicated back to the requesting physician by way of shared Medical record or letter to requesting physician via [place] mail. Peace Beckett PA-C documented in this encounter [facility] Evaluation + Plan note Note Date & Type Note Facility Evaluation + Plan note Future Appointments Appointment Date:05/03/2023 01:00:00 PM Scheduled Provider:KELLY JAIN Location:[facility] Appointment Type:CV OV [facility] Evaluation note Note Date & Type Note Facility documented in this encounter [facility] course Narrative Note Date & Type Note Facility Hospital course Narrative No data available for this section [facility] Hospital Discharge instructions Note Date & Type Note Facility Hospital Discharge instructions No data available for this section [facility] Progress note Note Date & Type Note Facility Progress note No data available for this section [facility] Summary Purpose Family History No Family History Records FoundNo Family History Records Found No data available for this section Advance Directives No Advanced Directives Records FoundNo Advanced Directives Records Found Additional Source Comments Source Comments (unrecognize d section and content) In the event this informatio n is protected by the Federal Confidentiality of Alcohol and Drug Abuse Patient Records regulations: The Federal rules restrict any use of the information to criminally investigate or prosecute any alcohol or drug abuse patient.[facility] Reason for Visit (unrecogniz ed section and content) Care Teams (unrecognized sec tion and content) Care Team Personnel Name: ARTEM CARRILLO MD Member Role: Primary Care Physician Address: Address: [address] [place] [address]. [address] [address]- [place] Care Team Related Persons Name: LIZZIE STARK (unrecognized sect ion and content) No Status Records FoundNo Status Records Found INFORMATION SOURCE (unrecogn ized section and content) DATE CREATED AUTHOR AUTHOR'S MODESTA ATION 11/16/[address] [facility] ([place]) FOR RECORDS PERTAINING TO PATIENTS WHO ARE OR HAVE BEEN ENROLLED IN A CHEMICAL DEPENDENCY/SUBSTANCEABUSE PROGRAM, SOME INFORMATION MAY BE OMITTED. This clinical summary was aggregated from multiple sources. Caution should be exercised in using it in the provision of clinical care. This summary normalizes information from multiple sources, and as a consequence, information in this document may materially change the coding, format and clinical context of patient data. In addition, data may be omitted in some cases. CLINICAL DECISIONS SHOULD BE BASED ON THE PRIMARY CLINICAL RECORDS. [facility]. provides no warranty or guarantee of the accuracy or completeness of information in this document.
[2023-05-22 16:19] LABS: Thyroid Stim Hormone (TSH) 1.55 uIU/mL (0.358-3.74)
== END | disposition home or self-care (01) ==
LOC: MFPLAB 11:31
PROVIDERS: PCP Family Medicine; Visit Provider Family Medicine
DX: I48.91 Unspecified atrial fibrillation (principal)
CPT/HCPCS: 36415; 84443

== ENCOUNTER → 2023-05-31 | Outpatient (CLI) | payer MEDICARE, SELFPAY ==
[2023-05-31 18:01] LABS: PSA,Total - Annual Screen 1.67 ng/mL (0.00-4.00)
--- OUTSIDE RECORDS SUMMARY | 2023-05-31 18:49 | XMS RPT_ITS | CCD ---
Author Name Unknown Address [address] [place] [address] Organization [facility] Care Team Providers Care Rougher Helper Name Role Phone Artem Carrillo Primary Care Provider TINY SHEPHERD Attending Unavailable Peace Beckett Referring Unavailable ARTEM CARRILLO Primary Care UnavailPeace Ball Attending Unavailable ARTEM CARRILLO Primary Care Unavaildarnell e KELLY DWYER Attending Unavailab ARTEM Collins MD Primary Care Unavailable LORENA PORTILLO, ARTEM Primary Care Physician [phone] Allergies Allergy Classification Reported Allergen(s) Allergy Type Date of Onset Reaction(s) Facility (2 sources) Proton Pump Inhibitors; Translations: [PROTON PUMP INHIBITORS] Drug Allergy 7 Other: See Comments [facility] (1 source) Citalopram; Translations: [citalopram] Drug Allergy did not tolerate [facility] (1 source) lansoprazole; Translations: [lansoprazole] Drug Allergy Hypertension [facility] (1 source) Loratadine; Translations: [loratadine] Drug Allergy Hives [facility] (1 source) Omeprazole; Translations: [omeprazole] Drug Allergy Palpitations [facility] (1 source) PARoxetine; Translations: [paroxetine] Drug Allergy did not tolerate [facility] (1 source) Perflutren; Translations: [perflutren] Drug Allergy Severe Back Pain [facility] Medications Current Medications Medication Drug Class(es) Dates [...] 182.9 cm Peace Beckett PA-C Work Phone: [facility] 06-08-2022 13:04-0500 Body temperature 98.4 [degF] Peace Sujit PA-C Work Phone: [facility] 06-08-2022 13:04-0500 Body weight 119.11 kg Peace Sujit PA-C Work Phone: [facility] 06-08-2022 13:04-0500 Diastolic blood pressure 88 mm[Hg] Peacedewey Barryf PA-C Work Phone: [facility] 06-08-2022 13:04-0500 Heart rate 66 /min Peace [place] PA-C Work Phone: [facility] 06-08-2022 13:04-0500 SaO2% (BldA) [Mass fraction] 98 % Peacedewey Barryf PA-C Work Phone: [facility] 06-08-2022 13:04-0500 Systolic blood pressure 136 mm[Hg] Peacedewey Barryf PA-C Work Phone: [facility] Encounters Encounter Date Encounter Type Care Provider Facility Start: 11-24-2022 End: 11-24-2022 Patient encounter procedure KELLY JAIN SHOP TECHNICIAN-STONE RIGGER [facility] Start: 11-15-2022 ambulatory KELLY JAIN SHOP TECHNICIAN-STONE RIGGER F acility:[facility] Start: 07-18-2022 End: 07-18-2022 ambulatory TINY SHEPHERD Facility:[facility] Start: 06-08-2022 End: 06-09-2022 ambulatory Peace Beckett Facility:[facility] Start: 06-08-2022 End: 06-08-2022 Patient encounter procedure Peace Barryf PA-C Work Phone: General Surgery Procedures Date Procedure Procedure Detail Performing Clinician Start: 01-28-2019 Electrocardiographic monitoring KELLY JAIN SHOP TECHNICIAN-STONE RIGGER Plan of Treatment Date Care Activity Detail Author Start: 04-10-2022 ADVANCE DIRECTIVE DISCUSSION ADVANCE DIRECTIVE DISCUSSION [facility] Start: 04-10-2022 DEPRESSION ASSESSMENT DEPRESSION ASS ESSMENT [facility] Start: 12-09-2021 Influenza vaccination INFLUENZA (#1) [facility] Start: 07-06-2021 COVID-19 VACCINE (4 - Booster for Moderna series) COVID-19 VACCINE (4 - Booster for Moderna series) [facility] Start: 06-16-2021 Colonoscopy COLONOSCOPY [facility] Start: 06-16-2021 COLORECTAL CANCER SCREENING COLORECTAL CANCER SCREENING [facility] Start: 01-01-2021 PNEUMOCOCCAL: 65+ (1 - PCV) PNEUMOCOCCAL: 65+ (1 - PCV) [facility] Start: 01-01-2011 PROSTATE CANCER SCRE ENING DISCUSSION PROSTATE CANCER SCREENING DISCUSSION [facility] Start: 01-01-2006 SHINGRIX VACCINE (1 of 2) SHINGRIX V ACCINE (1 of 2) [facility] Start: 01-01-2001 COLOGUARD (FIT-DNA) COLOGUARD (FIT-D NA) [facility] Start: 01-01-[address] COLONOGRAPHY [facility] Start: 01-01-2001 DIABETES SCREEN DIABETES SCREEN [facility] Start: 01-01-2001 FECAL OCCULT BLOOD FECAL OCCULT BLOO D [facility] Start: 01-01-2001 SIGMOIDOSCOPY SIGMOIDOSCOPY [facility] Start: 01-01-1991 LIPID SCREEN LIPID SCREEN [facility] Start: 01-01-1975 Urine microalbumin profile DTAP,TDAP ,TD (1 - Tdap) [facility] Start: 01-01-1974 HEPATITIS C SCREENING HEPATITIS C SC REENING [facility] Start: 1955 ABDOMINAL AORTIC ANE URYSM SCREENING ABDOMINAL AORTIC ANEURYSM SCREENING [facility] Immunizations Immunization Date Immunization Notes Care Provider Pastora gonzalez 07-01-2020 COVID-19, mRNA, LNP- S, PF, 100 mcg or 50 mcg dose; Translations: [Moderna COVID-19 Vaccine] KELLY JAIN APRN-STONE RIGGER [facility] 06-03-2020 COVID-19, mRNA, LNP- S, PF, 100 mcg or 50 mcg dose; Translations: [Moderna COVID-19 Vaccine] KELLY JAIN SHOP TECHNICIAN-STONE RIGGER [facility] Payers Date Payer Category Payer Medicare [employer] [place] [place] [id number] 2022-Present [phone] [address] [place] [address] HMO [id number] 2022 Medicare [id number] 1955 Unknown [id number] Social History Date Type Detail Facility Start: 11-12-2018 End: 06-08-2022 Tobacco smoking status NHIS Ex-smoker [facility] End: 04-10-1996 History of tobacco use Current smoker [facility] End: 04-10-1996 History of tobacco use Cigarette Smoker [facility] Start: 06-08-2022 Tobacco use and exposure Smoke less tobacco non-user [facility] Start: 06-08-2022 Alcohol intake Current non-dr final tester of alcohol (finding) [facility] Start: 1955 Sex Assigned At Not on file C [facility] Sex Assigned At Sex [facility] Medical Equipment Procedure Code Equipment Code Equipment Origin al Text Equipment Identifier Dates See Instructions , qs for 1 month supply, testing 4 times daily, # 1 EA, 11 Refill(s), Pharmacy: [id number] Start: 12-17-2018 Clinical Note 11-24-2022 Note Date & Type Note Facility [facility] Progress note 06-08-2022 Note Date & Type Note Facility 06-08-2022 Note HNO ID: [id number] Author: Peace Beckett PA-C Service: ? Author Type: Physician Piece Worker Type: Progress Notes Filed: 06/14/2022 4:06 PM [...] ORAL) Take by mouth as needed. Saw Elbert 160 mg capsule Take 160 mg by [...] entered by the nurse and reviewed by la Nursing Notes: Ana Doan LPN 06/08/2022 1:09 [...] blood clots. In (more content not included)... [facility] Nurse Note 06-08-2022 Ana Doan, SHROUD LINE TIER - 06/08/2022 1:07 PM EST Note Date [...] Ana Doan LPN documented in this encounter [facility] History of Present illness Narrative 06-08-2022 Peace [...] ORAL) Take by mouth as needed. Saw Elbert 160 mg capsule Take 160 mg by [...] entered by the nurse and reviewed by la Nursing Notes: Ana Doan LPN 06/08/2022 1:09 [...] patient was offered a surgery/procedure at a [facility]. I have counseled the patient regarding the [...] letter to requesting physician via US mail. Peaec Beckett PA-C documented in this encounter [facility] Evaluation + Plan note Note Date & Type Note Facility Evaluation + Plan note Future Appointments Appointment Date:05/03/2023 01:00:00 PM Scheduled Provider:KELLY JAIN Location[facility] Appointment Type:CV OV [facility] Evaluation note Note Date & Type Note Facility documented in this encounter [facility] course Narrative Note Date & Type Note Facility Hospital course Narrative No data available for this section [facility] Hospital Discharge instructions Note Date & Type Note Facility Hospital Discharge instructions No data available for this section [facility] Progress note Note Date & Type Note Facility Progress note No data available for this section [facility] Summary Purpose Family History No Family History [...] or prosecute any alcohol or drug abuse patient.[facility] Reason for Visit (unrecogniz ed section and content) Care Teams (unrecognized sec tion and content) Care Team Personnel Name: ARTEM CARRILLO MD Member Role: Primary Care Physician Address: Address: [address] [place] [address]. [address] [address]- [place] Care Team Related Persons Name: LIZZIE STARK (unrecognized sect ion and content) No Status Records FoundNo Status Records Found INFORMATION SOURCE (unrecogn ized section and content) DATE CREATED AUTHOR AUTHOR'S MODESTA ATION 11/16/2022 [facility] ([place]) FOR RECORDS PERTAINING TO PATIENTS [...] BE BASED ON THE PRIMARY CLINICAL RECORDS. [facility]. provides no warranty or guarantee of the accuracy or completeness of information in this document.
== END | disposition home or self-care (01) ==
LOC: MFPLAB 14:36
PROVIDERS: PCP Family Medicine; Visit Provider Family Medicine
DX: Z12.5 Encounter for screening for malignant neoplasm of prostate (principal)
CPT/HCPCS: 36415; 84153; G0103

== ENCOUNTER → 2023-08-28 | Outpatient (CLI) | payer MEDICARE, SELFPAY ==
[2023-08-28 11:41] LABS: Bacteria 0 SEEN /hpf (None Seen); Mucous, Urine 0 SEEN /hpf (<or=2+); Red Blood Cells-Urine 0 SEEN /hpf (0-5); Squamous Epithelial Cells - UA 0 SEEN /hpf (0-5); White Blood Cells 0 SEEN /hpf (0-5)
[2023-08-28 12:41] LABS: Absolute Lymphocyte Count 1.48 X10^3/uL (0.83-4.51); Absolute Neutrophil Count 4.3 X10^3/uL (2.0-7.7); Basophil# 0.06 X10^3/uL; Basophil% 0.9 % (0-1); Hematocrit 42.5 % (40-54); Hemoglobin 14.1 g/dL (13.0-16.5); Lymphocyte # 1.48 X10^3/ul (0.83-4.51); Lymphocyte % 21.9 % (19-41); Mean Corp Hgb Conc 33.2 g/dL (32-36); Mean Corpuscular Hgb 28.5 pg (27.0-32.0); Mean Platelet Vol. 10.8 fl (6.2-12.0); Monocyte# 0.73 X10^3/uL; Monocyte% 10.8 % (0-10); NRBC Flagged by Analyzer 0 % (0-5); Neutrophil # 4.25 X10^3/uL (2.7-7.7); Platelet Count 236 K/mm3 (150-450); RBC Distribution Width CV 12.7 % (11.6-14.6); RBC Distribution Width SD 39.5 fl (35.1-43.9); Red Blood Count 4.94 M/mm3 (4.6-6.2); White Blood Count 6.8 K/mm3 (4.4-11.0)
[2023-08-28 12:47] LABS: Color, Urine Yellow (Yellow); Glucose, Dipstick Normal (Normal); Ketone-Dipstick Negative (Negative); Leukocyte Esterase-Dipstick Negative /ul (Negative); Nitrite-Dipstick Negative (Negative); Occult Blood-Urine 10 /ul (Negative); Protein-Dipstick Negative (Negative); Urine Bilirubin Dipstick Negative (Negative); Urine Clarity Clear (Clear); Urine Urobilinogen Normal (Normal)
[2023-08-28 13:24] LABS: ALB/GLOB Ratio 1.1 RATIO (0.9-2.4); AST(SGOT) 18 U/L (15-37); Alanine Aminotransfer ALT/SGPT 26 U/L (16-61); Albumin, Serum 3.7 g/dL (3.2-5.0); Alkaline Phosphatase 62 U/L (45-117); Anion Gap 6 (5-15); BUN 9 mg/dL (7-18); BUN/Creat Ratio 8.5 RATIO (10-20); Calcium,Total 8.9 mg/dL (8.5-10.1); Chloride 106 mmol/L (98-107); Cholesterol 144 mg/dL (200); Creatinine, Serum 1.06 mg/dL (0.70-1.30); EST Glomerular Filtration Rate 74 mL/min (>60); Est Glom Filt Rate - Afr Amer 89 mL/min (>60); Globulin 3.3 g/dL (2.2-4.2); Glucose 145 mg/dL (74-106); High Density Lipoprotein 44 mg/dL; Magnesium 2.3 mg/dL (1.6-2.6); Potassium 3.9 mmol/L (3.5-5.1); Sodium Level 139 mmol/L (136-145); Triglycerides 139 mg/dL; Very Low Density Lipoprotein 28 mg/dL (5-40)
[2023-08-28 13:26] LABS: Hemoglobin A1c 6.3 % (3.8-5.6)
[2023-08-28 13:30] LABS: Microalbumin,Random Urine 6.6 mg/L (NO RANGE EST.); Microalbumin:Creatinine Ratio 6.5 mg/g CRE (<30 mg/g CRE)
== END | disposition home or self-care (01) ==
LOC: LAB 11:30
PROVIDERS: PCP Family Medicine; Referring Provider Family Medicine; Visit Provider Family Medicine
DX: E11.8 Type 2 diabetes mellitus with unspecified complications (principal); I48.91 Unspecified atrial fibrillation
CPT/HCPCS: 80053; 80061; 81001; 82043; 82570; 83036; 83735; 85025

== ENCOUNTER → 2023-09-01 | Outpatient (CLI) | payer MEDICARE, SELFPAY ==
--- NOTE | 2023-09-01 12:31 | ART_ITS ---
Reason For Study: BLE Claudication Procedure A bilateral lower extremity continuous wave Doppler with analog waveform analysis and ankle brachial indexes. Left Segmental Pressures Left brachial= 139mmHg. Left posterior tibial artery = >254mmHg. Left dorsalis pedis artery = 163mmHg. Left digit = 126 mmHg. The left posterior tibial artery waveforms are triphasic. The left dorsalis pedis waveforms are biphasic. Right Segmental Pressures Right brachial= 137mmHg. Right posterior tibial artery = >254mmHg. Right dorsalis pedis artery = >254mmHg. Right digit = 125 mmHg. The right posterior tibial artery waveforms are triphasic. The right dorsalis pedis waveforms are triphasic. Indices The right ankle brachial index by the posterior tibial artery is N/C. The right ankle brachial index by the dorsalis pedis is N/C. The right digital-brachial index is 0.90. The left ankle brachial index by the posterior tibial artery is N/C. The left ankle brachial index by the dorsalis pedis is 1.17. The left digital-brachial index is 0.91. VL/Ankle Brachial Index Interpretation Summary Right noncompressible and triphasic and left normal 1.17 snd triphasic low. Dig its 0.9 and 0.91. Ordering Physician: Luciano Best Referring Physician: Zia Juárez Performed By: Heron Ordoñez RVT
== END | disposition home or self-care (01) ==
PROVIDERS: PCP Family Medicine; Referring Provider Surgery Vascular Surgery; Visit Provider Surgery Vascular Surgery
DX: I70.213 Atherosclerosis of native arteries of extremities with intermittent claudication, bilateral legs (principal)
CPT/HCPCS: 93922

== ENCOUNTER → 2023-11-28 | Outpatient (CLI) | payer MEDICARE, SELFPAY ==
[2023-11-28 11:57] LABS: Absolute Lymphocyte Count 1.77 X10^3/uL (0.83-4.51); Absolute Neutrophil Count 4.9 X10^3/uL (2.0-7.7); Basophil# 0.06 X10^3/uL; Basophil% 0.8 % (0-1); Eosinophil# 0.21 X10^3/uL; Eosinophils% 2.7 % (0-5); Hematocrit 44.4 % (40-54); Lymphocyte # 1.77 X10^3/ul (0.83-4.51); Lymphocyte % 22.4 % (19-41); Mean Corp Hgb Conc 33.8 g/dL (32-36); Mean Corpuscular Hgb 28.9 pg (27.0-32.0); Mean Corpuscular Volume 85.5 fL (80-94); Mean Platelet Vol. 10.2 fl (6.2-12.0); Monocyte% 11.4 % (0-10); NRBC Flagged by Analyzer 0 % (0-5); Neutrophil # 4.94 X10^3/uL (2.7-7.7); Neutrophil % 62.3 % (47-70); Platelet Count 264 K/mm3 (150-450); RBC Distribution Width CV 12.5 % (11.6-14.6); RBC Distribution Width SD 38.9 fl (35.1-43.9); Red Blood Count 5.19 M/mm3 (4.6-6.2); White Blood Count 7.9 K/mm3 (4.4-11.0)
[2023-11-28 12:40] LABS: Vitamin D,25 Hydroxy 28.9 ng/mL
[2023-11-28 12:58] LABS: AST(SGOT) 19 U/L (15-37); Alanine Aminotransfer ALT/SGPT 25 U/L (16-61); Albumin, Serum 3.7 g/dL (3.2-5.0); Alkaline Phosphatase 71 U/L (45-117); Anion Gap 8 (5-15); BUN 9 mg/dL (7-18); BUN/Creat Ratio 7.9 RATIO (10-20); Calcium,Total 8.8 mg/dL (8.5-10.1); Chloride 106 mmol/L (98-107); Cholesterol 158 mg/dL (200); Creatinine, Serum 1.14 mg/dL (0.70-1.30); EST Glomerular Filtration Rate 68 mL/min (>60); Est Glom Filt Rate - Afr Amer 82 mL/min (>60); Globulin 3.6 g/dL (2.2-4.2); Glucose 146 mg/dL (74-106); High Density Lipoprotein 39 mg/dL; Magnesium 2.4 mg/dL (1.6-2.6); Protein, Total 7.3 g/dL (6.4-8.2); Sodium Level 138 mmol/L (136-145); Triglycerides 172 mg/dL; Very Low Density Lipoprotein 34 mg/dL (5-40)
[2023-11-28 14:08] LABS: Hemoglobin A1c 6.3 % (3.8-5.6)
== END | disposition home or self-care (01) ==
LOC: LAB 11:27
PROVIDERS: PCP Family Medicine; Referring Provider Family Medicine; Visit Provider Family Medicine
DX: I48.91 Unspecified atrial fibrillation (principal); E11.8 Type 2 diabetes mellitus with unspecified complications; E55.9 Vitamin D deficiency, unspecified
CPT/HCPCS: 80053; 80061; 82306; 83036; 83735; 85025

== ENCOUNTER → 2024-02-27 | Outpatient (CLI) | payer MEDICARE, SELFPAY ==
[2024-02-27 11:46] LABS: Bacteria 0 SEEN /hpf (None Seen); Mucous, Urine 0 SEEN /hpf (<or=2+); Red Blood Cells-Urine 0 SEEN /hpf (0-5)
[2024-02-27 12:10] LABS: Absolute Neutrophil Count 5.1 X10^3/uL (2.0-7.7); Basophil# 0.07 X10^3/uL; Basophil% 0.9 % (0-1); Eosinophil# 0.17 X10^3/uL; Eosinophils% 2.1 % (0-5); Hematocrit 43.3 % (40-54); Hemoglobin 14.9 g/dL (13.0-16.5); Lymphocyte % 21.3 % (19-41); Mean Corp Hgb Conc 34.4 g/dL (32-36); Mean Corpuscular Hgb 29.4 pg (27.0-32.0); Mean Corpuscular Volume 85.4 fL (80-94); Mean Platelet Vol. 10.4 fl (6.2-12.0); Monocyte# 0.92 X10^3/uL; Monocyte% 11.5 % (0-10); NRBC Flagged by Analyzer 0 % (0-5); Neutrophil % 63.7 % (47-70); Platelet Count 264 K/mm3 (150-450); RBC Distribution Width CV 12.5 % (11.6-14.6); RBC Distribution Width SD 38.6 fl (35.1-43.9); Red Blood Count 5.07 M/mm3 (4.6-6.2)
[2024-02-27 12:10] LABS: Color, Urine Yellow (Yellow); Glucose, Dipstick Normal (Normal); Ketone-Dipstick Negative (Negative); Leukocyte Esterase-Dipstick 25 /ul (Negative); Nitrite-Dipstick Negative (Negative); Occult Blood-Urine Negative /ul (Negative); Protein-Dipstick Negative (Negative); Urine Bilirubin Dipstick Negative (Negative); Urine Clarity Clear (Clear); Urine Urobilinogen Normal (Normal)
[2024-02-27 12:38] LABS: White Blood Cells 0-5 SEEN /hpf (0-5)
[2024-02-27 12:39] LABS: Squamous Epithelial Cells - UA 0-5 SEEN /hpf (0-5)
[2024-02-27 13:01] LABS: Vitamin D,25 Hydroxy 24.4 ng/mL
[2024-02-27 13:13] LABS: AST(SGOT) 18 U/L (15-37); Alanine Aminotransfer ALT/SGPT 26 U/L (16-61); Albumin, Serum 3.7 g/dL (3.2-5.0); Alkaline Phosphatase 72 U/L (45-117); Anion Gap 5 (5-15); BUN 12 mg/dL (7-18); BUN/Creat Ratio 11.5 RATIO (10-20); Calcium,Total 8.7 mg/dL (8.5-10.1); Chloride 107 mmol/L (98-107); Cholesterol 139 mg/dL (200); Creatinine, Serum 1.04 mg/dL (0.70-1.30); EST Glomerular Filtration Rate 76 mL/min (>60); Est Glom Filt Rate - Afr Amer 91 mL/min (>60); Globulin 3.6 g/dL (2.2-4.2); Glucose 138 mg/dL (74-106); High Density Lipoprotein 43 mg/dL; Magnesium 2.4 mg/dL (1.6-2.6); Protein, Total 7.3 g/dL (6.4-8.2); Sodium Level 138 mmol/L (136-145); Triglycerides 146 mg/dL; Very Low Density Lipoprotein 29 mg/dL (5-40)
[2024-02-27 13:18] LABS: Hemoglobin A1c 6.6 % (3.8-5.6)
== END | disposition home or self-care (01) ==
LOC: LAB 11:15
PROVIDERS: PCP Family Medicine; Referring Provider Family Medicine; Visit Provider Family Medicine
DX: E55.9 Vitamin D deficiency, unspecified (principal); I48.91 Unspecified atrial fibrillation; E11.8 Type 2 diabetes mellitus with unspecified complications
CPT/HCPCS: 36415; 80053; 80061; 81001; 82306; 83036; 83735; 84443; 85025

== ENCOUNTER → 2024-04-16 | Outpatient (CLI) | payer MEDICARE, SELFPAY ==
--- NOTE | 2024-04-16 13:43 | CDU_ITS ---
Reason For Study: Carotid Stenosis Rt. Velocities/BP Lt. Velocities/BP Prox CCA 65.5/11.6 cm/sec. Prox CCA 51.7/11.6 cm/sec. Mid CCA 44.7/11.6 cm/sec. Mid CCA 60.4/11.6 cm/sec. Dist CCA 42.8/11.6 cm/sec. Dist CCA 49.1/11.6 cm/sec. Prox ICA 39.5/11.6 cm/sec. Prox ICA 57.5/12.4 cm/sec. Mid ICA 72.7/18.6 cm/sec. Mid ICA 69.8/16.9 cm/sec. Dist ICA 75.3/21.2 cm/sec. Dist ICA 68.5/14.6 cm/sec. Rt. ICA/CCA = 1.7. Lt. ICA/CCA = 1.2. Prox ECA 103.5/9.0 cm/sec. Prox ECA 169.7/11.6 cm/sec. Rt. Vert. 36.0/9.9 cm/sec. Lt. Vert. 36.5/10.2 cm/sec. Right Extracranial There is heterogeneous, irregular atherosclerotic plaque noted in the right common carotid artery. There is heterogeneous, irregular atherosclerotic plaque noted in the right internal carotid artery. There is heterogeneous, irregular atherosclerotic plaque noted in the right external carotid artery. Antegrade flow is noted in the right vertebral artery. Left Extracranial There is homogeneous, smooth atherosclerotic plaque noted in the left common carotid artery. There is heterogeneous, irregular atherosclerotic plaque noted in the left internal carotid artery. There is heterogeneous, irregular atherosclerotic plaque noted in the left external carotid artery. Antegrade flow is noted in the left vertebral artery. Procedure Carotid Duplex 63036. This is a Carotid Duplex examination using B-mode, color flow and specral Doppler. Exam performed in department. VL/Carotid Duplex Ultrasound Interpretation Summary Mild (<50%) stenosis right extracranial internal carotid. Mild (<50%) stenosis left extracranial internal carotid. Patent and antegrade vertebrals bilaterally. Ordering Physician: Zia Juárez Referring Physician: Zia Juárez Performed By: Sadaf Collazo RVT and Student
== END | disposition home or self-care (01) ==
PROVIDERS: PCP Family Medicine; Referring Provider Family Medicine; Visit Provider Family Medicine
DX: I65.23 Occlusion and stenosis of bilateral carotid arteries (principal)
CPT/HCPCS: 93880

== ENCOUNTER → 2024-05-21 | Outpatient (CLI) | payer MEDICARE, SELFPAY ==
[2024-05-21 12:45] LABS: International Normalized Ratio 1.9; Prothrombin Time (Protime)PT. 21.9 SECONDS (11.7-14.9)
== END | disposition home or self-care (01) ==
LOC: LAB 11:22
PROVIDERS: PCP Family Medicine; Referring Provider Family Medicine; Visit Provider Family Medicine
DX: I48.91 Unspecified atrial fibrillation (principal)
CPT/HCPCS: 36415; 85610

== ENCOUNTER → 2024-05-30 | Outpatient (CLI) | payer MEDICARE, SELFPAY ==
[2024-05-30 17:56] LABS: Absolute Lymphocyte Count 1.58 X10^3/uL (0.83-4.51); Absolute Neutrophil Count 4.5 X10^3/uL (2.0-7.7); Basophil# 0.07 X10^3/uL; Eosinophil# 0.15 X10^3/uL; Eosinophils% 2.1 % (0-5); Hematocrit 45.5 % (40-54); Hemoglobin 15.3 g/dL (13.0-16.5); Lymphocyte # 1.58 X10^3/ul (0.83-4.51); Lymphocyte % 22.3 % (19-41); Mean Corp Hgb Conc 33.6 g/dL (32-36); Mean Corpuscular Hgb 29.3 pg (27.0-32.0); Mean Corpuscular Volume 87.2 fL (80-94); Mean Platelet Vol. 10.9 fl (6.2-12.0); Monocyte# 0.73 X10^3/uL; Monocyte% 10.3 % (0-10); NRBC Flagged by Analyzer 0 % (0-5); Neutrophil # 4.51 X10^3/uL (2.7-7.7); Neutrophil % 63.9 % (47-70); Platelet Count 291 K/mm3 (150-450); RBC Distribution Width CV 12.4 % (11.6-14.6); RBC Distribution Width SD 39.4 fl (35.1-43.9); Red Blood Count 5.22 M/mm3 (4.6-6.2); White Blood Count 7.1 K/mm3 (4.4-11.0)
[2024-05-30 17:59] LABS: Vitamin D,25 Hydroxy 35.6 ng/mL
[2024-05-30 18:05] LABS: ALB/GLOB Ratio 1.1 RATIO (0.9-2.4); AST(SGOT) 22 U/L (15-37); Alanine Aminotransfer ALT/SGPT 25 U/L (16-61); Albumin, Serum 3.9 g/dL (3.2-5.0); Alkaline Phosphatase 81 U/L (45-117); Anion Gap 7 (5-15); BUN 10 mg/dL (7-18); BUN/Creat Ratio 9.2 RATIO (10-20); Calcium,Total 8.7 mg/dL (8.5-10.1); Chloride 104 mmol/L (98-107); Cholesterol 145 mg/dL (200); Creatinine, Serum 1.09 mg/dL (0.70-1.30); EST Glomerular Filtration Rate 71 mL/min (>60); Est Glom Filt Rate - Afr Amer 86 mL/min (>60); Globulin 3.7 g/dL (2.2-4.2); Glucose 193 mg/dL (74-106); High Density Lipoprotein 44 mg/dL; Magnesium 2.4 mg/dL (1.6-2.6); Potassium 4.1 mmol/L (3.5-5.1); Protein, Total 7.6 g/dL (6.4-8.2); Sodium Level 135 mmol/L (136-145); Triglycerides 179 mg/dL; Very Low Density Lipoprotein 36 mg/dL (5-40)
[2024-05-30 18:08] LABS: Hemoglobin A1c 6.4 % (3.8-5.6)
[2024-05-30 18:26] LABS: Microalbumin,Random Urine 11.7 mg/L (NO RANGE EST.)
== END | disposition home or self-care (01) ==
LOC: MFPLAB 14:09
PROVIDERS: PCP Family Medicine; Referring Provider Family Medicine; Visit Provider Family Medicine
DX: E55.9 Vitamin D deficiency, unspecified (principal); E11.8 Type 2 diabetes mellitus with unspecified complications; I25.10 Atherosclerotic heart disease of native coronary artery without angina pectoris
CPT/HCPCS: 36415; 80053; 80061; 82043; 82306; 83036; 83735; 85025

== ENCOUNTER → 2024-09-26 | Outpatient (CLI) | payer MEDICARE, SELFPAY ==
--- NOTE | 2024-09-26 13:48 | ECHOD_ITS ---
Reason For Study Reason For Study: PROSTHETIC VALVE Procedure This was a 2D Doppler, Color Flow transthoracic echocardiogram. The study was technically difficult. Definity deferrede due to patient claims of allergic reaction at [facility]. Exam performed in department. Left Ventricle Normal LV size. The estimated ejection fraction is 55 %. No evidence for diastolic dysfunction. No regional wall motion abnormalities noted. Right Ventricle Normal RV size. Normal systolic function. Atria The left and right atria are normal. No doppler evidence for ASD. Mitral Valve There is no mitral valve stenosis. No mitral valve insufficiency. Tricuspid Valve There is no tricuspid stenosis. Unable to estimate RV systolic pressure due to inadequate jet, pulmonary artery pressure probably normal. Aortic Valve The aortic valve is not well visualized. There is no aortic stenosis. No aortic valve insufficiency. Prosthetic arctic valve appears to be well-seated. Not very well-visualized. Pulmonic Valve There is no pulmonic valvular stenosis. Trivial pulmonic valve insufficiency. MMode/2D Measurements & Calculations LVIDd: 4.8 cm IVSd: 1.4 cm LVOT diam: 2.0 cm LVIDs: 3.4 cm LVPWd: 1.5 cm LVOT area: 3.1 cm2 FS: 28.5 % Ao root diam: 3.1 cm LAV(MOD-bp): 58.4 ml LVAd ap2: 23.7 cm2 LAV(MOD-bp) Indexed: 24.5 ml/m2 LVLd ap2: 7.7 cm LAV(MOD-sp2): 63.3 ml EDV(MOD-sp2): 61.0 ml LAV(MOD-sp4): 50.1 ml EDV(sp2-el): 61.6 ml LVAs ap2: 14.5 cm2 LVLs ap2: 6.3 cm ESV(MOD-sp2): 28.4 ml ESV(sp2-el): 28.3 ml EF(MOD-sp2): 53.5 % SV(MOD-sp2): 32.6 ml LA A4 area: 18.1 cm2 RA A4 area: 11.5 cm2 SI(MOD-sp2): 13.7 ml/m2 Doppler Measurements & Calculations MV E max faisal: 56.5 cm/sec Lat Peak E' Faisal: 15.0 cm/sec Med Peak E' Faisal: 8.3 cm/sec MV A max faisal: 62.2 cm/sec E/E' lat: 3.8 E/E' med: 6.8 MV E/A: 0.91 MV P1/2t max faisal: 58.6 cm/sec Ao V2 max: 294.1 cm/sec LV V1 max: 153.0 cm/sec MV P1/2t: 61.2 msec Ao max P.6 mmHg LV V1 max P.4 mmHg MV dec slope: 280.8 cm/sec2 Ao V2 mean: 207.5 cm/sec LV V1 mean P.5 mmHg MVA(P1/2t): 3.6 cm2 Ao mean P.5 mmHg LV V1 mean: 119.0 cm/sec Ao V2 VTI: 81.3 cm LV V1 VTI: 46.2 cm AV (velocity ratio): 0.57 AZUCENA(I,D): 1.7 cm2 AZUCENA(V,D): 1.6 cm2 SV(LVOT): 141.1 ml PA V2 max: 102.8 cm/sec PA V2 mean: 63.2 cm/sec ECHO/Echo Complete Interpretation Summary The estimated ejection fraction is 55 %. No evidence for diastolic dysfunction. Ordering Physician: Cinthya Alvarenga Referring Physician: Cinthya Alvarenga Performed By: Brittni Alfaro and Student
== END | disposition home or self-care (01) ==
LOC: CVS 13:47
PROVIDERS: PCP Family Medicine; Referring Provider Nurse Practitioner Family; Visit Provider Nurse Practitioner Family
DX: Z95.2 Presence of prosthetic heart valve (principal); I48.91 Unspecified atrial fibrillation; I10 Essential (primary) hypertension
CPT/HCPCS: 93306

== ENCOUNTER → 2024-10-09 | Outpatient (CLI) | payer MEDICARE, SELFPAY ==
[2024-10-09 11:56] LABS: Mucous, Urine 0 SEEN /hpf (<or=2+); Red Blood Cells-Urine 0 SEEN /hpf (0-5)
[2024-10-09 12:08] LABS: Hematocrit 44.2 % (40-54); Hemoglobin 15.2 g/dL (13.0-16.5); Immature Granulocytes Count 0.020 X10^3/uL (0.0-0.0); Mean Corp Hgb Conc 34.4 g/dL (32-36); Mean Corpuscular Volume 85.5 fL (80-94); Mean Platelet Vol. 10.4 fl (6.2-12.0); NRBC Flagged by Analyzer 0 % (0-5); Platelet Count 261 K/mm3 (150-450); RBC Distribution Width CV 12.4 % (11.6-14.6); RBC Distribution Width SD 39.0 fl (35.1-43.9); Red Blood Count 5.17 M/mm3 (4.6-6.2); White Blood Count 8.3 K/mm3 (4.4-11.0)
[2024-10-09 12:15] LABS: Color, Urine Yellow (Yellow); Glucose, Dipstick Normal (Normal); Ketone-Dipstick Negative (Negative); Leukocyte Esterase-Dipstick Negative /ul (Negative); Nitrite-Dipstick Negative (Negative); Occult Blood-Urine 10 /ul (Negative); Protein-Dipstick 15 mg/dl (Negative); Specific Gravity, Urine 1.010 (1.002-1.030); Urine Bilirubin Dipstick Negative (Negative)
[2024-10-09 12:37] LABS: Creatinine, Urine (random) 82.60 mg/dL (39.00-259.00); Microalbumin,Random Urine < 12.0 mg/L (NO RANGE EST.)
[2024-10-09 13:27] LABS: Squamous Epithelial Cells - UA 0-5 SEEN /hpf (0-5)
[2024-10-09 13:44] LABS: AST(SGOT) 24 U/L (<=37); Alanine Aminotransfer ALT/SGPT 21 U/L (<=46); Albumin, Serum 4.2 g/dL (3.4-4.8); Alkaline Phosphatase 77 U/L (40-129); Anion Gap 11 (5-15); BUN 8 mg/dL (4-19); BUN/Creat Ratio 8.8 RATIO (10-20); Calcium,Total 9.0 mg/dL (7.6-11.0); Carbon Dioxide 22.8 mmol/L (21.0-32.0); Chloride 103 mmol/L (98-108); Cholesterol 159 mg/dL (<=200); Globulin 3.1 g/dL (2.2-4.2); Glucose 152 mg/dL (70-99); Low Density Lipoprotein Calc. 81 mg/dL; Magnesium 2.3 mg/dL (1.5-2.2); Potassium 4.2 mmol/L (3.3-5.1); Triglycerides 191 mg/dL; Very Low Density Lipoprotein 38 mg/dL (5-40); cholesterol:hdl ratio screen 3.98
[2024-10-09 13:51] LABS: PSA,Total - Annual Screen 1.16 ng/mL (0.02-4.00); Vitamin D,25 Hydroxy 23.6 ng/mL (30-100)
== END | disposition home or self-care (01) ==
LOC: LAB 11:30
PROVIDERS: PCP Family Medicine; Referring Provider Family Medicine; Visit Provider Family Medicine
DX: I48.91 Unspecified atrial fibrillation (principal); E11.8 Type 2 diabetes mellitus with unspecified complications; I25.10 Atherosclerotic heart disease of native coronary artery without angina pectoris; E55.9 Vitamin D deficiency, unspecified; Z12.5 Encounter for screening for malignant neoplasm of prostate
CPT/HCPCS: 36415; 80053; 80061; 81001; 82043; 82306; 82570; 83036; 83735; 84153; 85025; G0103

== ENCOUNTER → 2025-02-11 | Outpatient (CLI) | payer MEDICARE, SELFPAY ==
[2025-02-11 12:17] LABS: Hematocrit 43.9 % (40-54); Hemoglobin 14.9 g/dL (13.0-16.5); Immature Granulocytes Count 0.030 X10^3/uL (0.0-0.0); Mean Corp Hgb Conc 33.9 g/dL (32-36); Mean Corpuscular Volume 85.4 fL (80-94); Mean Platelet Vol. 10.5 fl (6.2-12.0); NRBC Flagged by Analyzer 0 % (0-5); Platelet Count 284 K/mm3 (150-450); RBC Distribution Width CV 12.6 % (11.6-14.6); RBC Distribution Width SD 39.0 fl (35.1-43.9); Red Blood Count 5.14 M/mm3 (4.6-6.2); White Blood Count 8.1 K/mm3 (4.4-11.0)
[2025-02-11 12:38] LABS: Creatinine, Urine (random) 131.00 mg/dL (39.00-259.00); Microalbumin,Random Urine 41.9 mg/L (<20 mg/L)
[2025-02-11 13:41] LABS: AST(SGOT) 25 U/L (<=37); Alanine Aminotransfer ALT/SGPT 19 U/L (<=46); Albumin, Serum 4.3 g/dL (3.4-4.8); Alkaline Phosphatase 75 U/L (40-129); Anion Gap 8 (5-15); BUN 10 mg/dL (4-19); BUN/Creat Ratio 9.0 RATIO (10-20); Calcium,Total 9.1 mg/dL (7.6-11.0); Carbon Dioxide 27.3 mmol/L (21.0-32.0); Chloride 102 mmol/L (98-108); Cholesterol 153 mg/dL (<=200); Globulin 2.9 g/dL (2.2-4.2); Glucose 172 mg/dL (70-99); Low Density Lipoprotein Calc. 88 mg/dL; Magnesium 2.3 mg/dL (1.5-2.2); Potassium 4.7 mmol/L (3.3-5.1); Triglycerides 160 mg/dL; Very Low Density Lipoprotein 32 mg/dL (5-40); Vitamin D,25 Hydroxy 30.5 ng/mL (30-100); cholesterol:hdl ratio screen 4.08
== END | disposition home or self-care (01) ==
LOC: LAB 11:20
PROVIDERS: PCP Family Medicine; Referring Provider Family Medicine; Visit Provider Family Medicine
DX: E11.69 Type 2 diabetes mellitus with other specified complication (principal); I48.91 Unspecified atrial fibrillation
CPT/HCPCS: 36415; 80053; 80061; 82043; 82306; 82570; 83036; 83735; 85025